=== PATIENT | female | born 1950 | race Caucasian/White ===

== ENCOUNTER 2018-04-09 17:43 | Emergency (ER) | payer MEDICARE, OTHER, SELFPAY ==
[2018-04-09 17:45] VITALS: BP 161/83; PULSE 72; RESP 18; TEMP 36.3; O2SAT 97; BMI 27.1
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
[2018-04-09 19:51] VITALS: BP 154/60; PULSE 58; RESP 18; O2SAT 94
== END 2018-04-09 19:55 | disposition home or self-care (01) ==
PROVIDERS: Emergency Provider Emergency Medicine; Family Provider Internal Medicine; PCP Internal Medicine
DX: M54.2 Cervicalgia (principal); H57.10 Ocular pain, unspecified eye; M25.562 Pain in left knee; M25.561 Pain in right knee; M79.671 Pain in right foot; K21.9 Gastro-esophageal reflux disease without esophagitis; Z79.899 Other long term (current) drug therapy; V43.52XA Car driver injured in collision with other type car in traffic accident, initial encounter; Y93.I9 Activity, other involving external motion; Y92.410 Unspecified street and highway as the place of occurrence of the external cause; Y99.8 Other external cause status
CPT/HCPCS: 70450; 72125; 73564; 73630; 99282

== ENCOUNTER 2019-04-28 10:37 | Emergency (ER) | payer MEDICARE, SELFPAY ==
[2019-04-28 10:38] VITALS: BP 163/95; PULSE 111; RESP 17; TEMP 36.4; O2SAT 95; BMI 27.4
--- NOTE | 2019-04-28 10:45 | RAD_ITS ---
STUDY: X-RAY CHEST REASON FOR EXAM: Female, 68 years old. Cough. TECHNIQUE: PA and lateral views of the chest. COMPARISON: None. FINDINGS: The lungs are clear and expanded. Scattered calcified granulomas. There is no demonstrated pleural abnormality. Normal size heart. Normal mediastinum and baldev. Normal visualized pulmonary arteries. There is atherosclerotic calcification of the aortic arch with tortuosity. There is demineralization of the osseous structures. Normal visualized ribs, clavicles, and shoulders. Moderate sized hiatal hernia. Evidence of prior cholecystectomy. RAD/Chest PA and Lateral IMPRESSION: No acute abnormality is seen. Electronically Signed: Milan Orozco, at 11:02 EDT , Service support ,
[2019-04-28 11:38] VITALS: O2SAT 95
[2019-04-28 11:40] VITALS: BP 177/90; PULSE 88; RESP 20; TEMP 36.9; O2SAT 94
--- NOTE | 2019-04-28 12:01 | ED.VIS.DYS ---
History of Present Illness Chief Complaint: Cough Informant: Patient Onset: Weeks - 3 Current Severity: Moderate Maximum Severity: Moderate Worsened by: Coughing, Exertion Relieved by: Albuterol Associated Symptoms: Cough, Green sputum, Yellow sputum. Negative for: Bloody Sputum, Chills, Fever, Sore throat Chest Pain: None Narrative: Patient was seen at the [facility] urgent care 3 times so far for this illness in addition to her visit here today. Initially very close to the onset of her cough which was nonproductive at the time she was placed on Augmentin, she took several days of it, she had a yeast infection so discontinued it, that was then treated and is resolved now. The cough is persistent, it has been exacerbating her asthma the entire time, she was seen there again and basically diagnosed with a viral syndrome with no indications, and then on the third visit she was prescribed a lot of medicines including an antitussive, prednisone x5 days, and inhaled steroid. She states the prednisone did help her wheezing but she continued coughing and which became productive. - Past Medical History (1) Asthma Status: Chronic Past Medical History - Allergies and Home Meds Allergies/Adverse Reactions: Allergies No Known Allergies Allergy (Verified 04/09/18 17:44) Primary Care Physician: Elbert Calvo MD [Primary Care Provider] - 1 Week if not improving Lives: Alone Smoking Status: Never smoker Review of Systems General: Denies: Chills, Fever, Sweats Eyes: Denies: Visual changes - bilaterally, Diplopia ENT: Reports: Right ear pain. Denies: Rhinorrhea, Sore throat Cardiovascular: Denies: Chest pain, Palpitations Respiratory: Reports: Dyspnea - Wheezing, Cough. Denies: Dyspnea on exertion, Orthopnea Gastrointestinal: Denies: Abdominal pain, Nausea, Vomiting, Diarrhea, Melena, Hematochezia Genitourinary: Denies: Dysuria, Hematuria, Frequency Musculoskeletal: Denies: Back pain, Swelling, Extremity Pain Skin: Denies: Rash, Wounds Neurological: Reports: Headache - Especially with coughing. Denies: Weakness, Numbness Physical Exam Vital Signs/Narrative: Vital Signs Temp Pulse Resp BP Pulse Ox 04/28/19 11:40 98.4 F 88 20 H 177/90 H 94 04/28/19 10:38 97.6 F L 111 H 17 163/95 H 95 Inital Vital Signs reviewed: Yes General: Well nourished, Well developed, No Acute Distress Head: Normocephalic, Atraumatic Eyes: Perrl, EOMI ENT: Moist mucous membranes, No rhinorrhea Neck: Supple, Nontender Cardiovascular: Regular rate, Regular rhythm, No murmurs, Tachycardia Respiratory: No distress, Chest nontender, Wheezing - Throughout expiration, all lung tate, prolonged expirations. Negative for: Rales, Rhonchi Abdomen: Soft, Nontender, Nondistended, Normal bowel sounds Back: Nontender, Normal Inspection Extremities: Nontender, No edema. Negative for: Calf Tenderness Skin: Normal color, No rash, No Trauma Neurological: Alert, Oriented x3, Cranial nerves II-XII grossly intact, Normal Strength, Normal Sensation Psychological: Normal affect, Normal Mood Diagnostic/Tx/Re-eval Clinical Impression(s) from Imaging Studies Chest X-Ray 04/28/19 10:45 IMPRESSION: No acute abnormality is seen. Electronically Signed: Milan Ernesto, at 11:02 EDT , Service support , Treatment - Dyspnea: Albuterol, Atrovent, Antibiotics, Steroid Repeat Evaluation: Improved - still wheezy, improved, declines additional tx here - Medical Decision Making We will treat for atypicals given the duration of illness and no improvement, with a macrolide. Also will place on Medrol Dosepak after an initial dose of prednisone 40 mg today, she has a nebulizer machine with medication and an inhaler at home, she needs to follow-up with PCP and understands that but has not been able to. Stable for discharge home, good pulse ox and vital signs. ED Disposition - Plan for ED Patient: Disposition: Home or Assisted Living Diagnosis: Acute bronchitis with bronchospasm, Asthma exacerbation Instructions: ASTHMA, Acute (Adult), BRONCHITIS with Wheezing (Adult) Prescriptions: Azithromycin 250 mg PO DAILY #4 tab Prescription Printed MethylPREDNISolone DosePak [Medrol DosePak] 4 mg PO UD #1 box Prescription Printed Referrals: Elbert Calvo MD [Primary Care Provider] - 1 Week if not improving
[2019-04-28] MEDS: Ipratropium/Albuterol Sulfate 3 ML AMPUL.NEB INHALATION (12:09)
[2019-04-28 12:10] VITALS: PULSE 94; RESP 18
[2019-04-28] MEDS: predniSONE 20 MG Tablet 40 MG PO (12:17)
[2019-04-28] MEDS: Azithromycin 250 MG Tablet 500 MG PO (12:17)
[2019-04-28 13:09] VITALS: BP 147/70; PULSE 80; RESP 14; O2SAT 98
== END 2019-04-28 13:09 | disposition home or self-care (01) ==
PROVIDERS: Emergency Provider Emergency Medicine; Family Provider Internal Medicine; PCP Internal Medicine
DX: J45.901 Unspecified asthma with (acute) exacerbation (principal); Z79.51 Long term (current) use of inhaled steroids
CPT/HCPCS: 71046; 94640; 99283

== ENCOUNTER 2019-10-15 08:44 | Day surgery (SDC) | payer MEDICARE, SELFPAY ==
--- NOTE | 2019-10-14 21:11 | PCM.HP.OB ---
- Problem List (1) Abnormal biopsy result Status: Acute History Date of Admission: 10/15/19 History of this : This is a 69 year-old who had a pelvic ultrasound showing complex fluid in the endometrial cavity a round a polypoid lesion. An endometrial biopsy was performed showing atypical mucinous glandular proliferation. The significance of the biopsy finding is uncertain, but it was reported that atypical hyperplasia could not be excluded and additional sampling was suggested per the pathologist. Medical History: Medical History (Last Updated 10/14/19 @ 21:14 by Linda Nolasco DO) Cervical spinal stenosis M48.02 Hiatal hernia K44.9 History of diverticulitis Z87.19 History of pancreatitis Z87.19 Hypertension I10 Surgical History: Surgical History (Last Updated 10/14/19 @ 21:14 by Linda Nolasco DO) History of cholecystectomy Z90.49 History of esophagogastroduodenoscopy (EGD) Z98.890 History of tubal ligation Z98.51 Allergies No Known Allergies Allergy (Verified 10/08/19 13:48) Home Medications: Home Medications Omeprazole [Prilosec] 40 mg PO DAILY 03/12/17 Acetaminophen [Tylenol Extra Strength] 500 mg PO DAILY 10/08/19 Albuterol Inhaler [Ventolin Hfa (SP)] 1 puff INHALATION PRN PRN 10/08/19 Calcium Carbonate [Calcium] 1,200 mg PO DAILY 10/08/19 Cholecalciferol (Vitamin D3) [Vitamin D3] 1,250 mcg PO DAILY 10/08/19 Digestive 8/L.acidoph/Pectin [Digestive Enzymes Tablet] 1 ea PO DAILY 10/08/19 Fosinopril Sodium 10 mg PO DAILY 10/08/19 Smoking Status: Never smoker History Past Pregnancies: Past Pregnancies Delivery Date Name GA/ Weeks Outcome Route Wt Sex Labor Length Anesthesia Delivery Location Provider FOB Review of Systems Constitutional: Denies: Fever Eyes: Denies: Blurred vision HEENT: Denies: Head Aches Cardiovascular: Denies: Chest Pain Respiratory: Denies: Cough, Shortness of Breath Gastrointestinal: Denies: Abdominal Pain Genitourinary: Denies: Dysuria Neurological: Denies: Confusion Psychiatric: Denies: Anxiety, Depression Physical Exam General: Alert, No apparent distress HEENT: Atraumatic Cardiovascular: Regular rate Lungs: Clear to auscultation Abdomen: Soft, Non Tender, Non-Distended Extremities:: No edema Neurological: Neuro grossly intact Assessment/Plan All Active Problems Abnormal biopsy result (Acute) This is a 69 year-old who had complex fluid as well as a possible polypoid lesion noted on pelvic ultrasound. Endometrial biopsy showed atypical mucinous glandular proliferation, and atypical hyperplasia was not able to be excluded. The patient desires to proceed with hysteroscopy D&C given the endometrial biopsy findings. Reviewed risks, benefits, alternatives of a hysteroscopy D&C and consent was obtained.
--- NOTE | 2019-10-15 09:06 | DCINST_ITS ---
Discharge Diet: No Restrictions Discharge Activity: May Not Drive, May Shower May resume sexual activity in: 4 weeks Weight Bearing Status: Weight bearing as tolerated Lifting Restrictions: None Call your doctor if you observe: Fever of 101 or Higher, Inability to urinate, Inability to have a bowel movement, Using more than one pad per hour, Shortness of breath, Dizziness, Chest pain, Increased palpitations (irregular heartbeat), Calf discomfort, Uncontrolled pain Allergies/Adverse Reactions: Allergies No Known Allergies Allergy (Verified 10/08/19 13:48) Medications to take at Discharge Omeprazole [Prilosec] 40 mg PO DAILY 03/12/17 Acetaminophen [Tylenol Extra Strength] 500 mg PO DAILY 10/08/19 Albuterol Inhaler [Ventolin Hfa (SP)] 1 puff INHALATION PRN PRN 10/08/19 Calcium Carbonate [Calcium] 1,200 mg PO DAILY 10/08/19 Cholecalciferol (Vitamin D3) [Vitamin D3] 1,250 mcg PO DAILY 10/08/19 Digestive 8/L.acidoph/Pectin [Digestive Enzymes Tablet] 1 ea PO DAILY 10/08/19 Fosinopril Sodium 10 mg PO DAILY 10/08/19 Orders to be completed after discharge: Type & Screen Time Frame: 10/15/19, Facility: [facility], Location: Laboratory CBC-Complete Blood Cnt No Diff Time Frame: 10/15/19, Facility: [facility], Location: Laboratory Primary Care Physician: Elbert Calvo MD [Primary Care Provider] - Test Results: Test results from this visit will be discussed in further detail at your follow- up appointment, if applicable. Please Follow Up With: Linda Nolasco DO When: 1-2 weeks
--- NOTE | 2019-10-15 09:07 | PCM.OPRPT ---
Problem List (1) Abnormal biopsy result Status: Acute Report of Operation Date of Procedure: 10/15/19 Pre-Operative Diagnosis: Complex fluid within endometrial canal on pelvic US, endometrial biopsy with atypical mucinous glandular proliferation and could not rule out atypical hyplerplasia Post-Operative Diagnosis: As above Surgery/Procedure Performed:: Hysteroscopy D&C Description of Surgical Findings:: Normal appearing uterine cavity and bilateral tubal ostia were visualized. There were no polyps or fibroids noted. The endometrium was thin and atrophic appearing. There was some scarring noted at the fundus of the uterus, and a nodule noted also at the fundus of the uterus along the right side. Type of Anesthesia:: MAC Special Medications: None Specimen's removed: Endometrial curettings Drains: None Estimated Blood Loss (mL): < 10 cc Description of Procedure: Patient was taken to the operating room where MAC anesthesia was found to be adequate. She was prepped and draped in the dorsal lithotomy position using yellowfin stirrups. A weighted speculum was placed in the vagina exposing the cervix and a single-tooth tenaculum was placed on the anterior lip of the cervix. The cervix was serially dilated to accommodate the Symphion hysteroscope. The findings were noted as above. The Symphion was used to do a directed biopsy of the nodule within the uterus, and to perform a D&C. The Symphion hysteroscope was then removed. A sharp curettage was then performed for additional specimen. The endometrial curettings were sent to pathology for review. All instruments were removed from the vagina. Bleeding was hemostatic. Instrument counts were correct. The patient was taken to the recovery room in stable condition. Grafts/Implants Used: None - Complications None - Admit VTE Documentation VTE Present on Admission: No VTE Mechan Device Prophylaxis: SCD's
[2019-10-15] MEDS: Lactated Ringers 1,000 ML 75 ML IV (09:10)
[2019-10-15 09:14] LABS: Hematocrit 45.8 % (37-47); Hemoglobin 14.4 g/dL (12.0-15.0); Mean Corp Hgb Conc 31.4 g/dL (32-36); Mean Corpuscular Hgb 28.7 pg (27.0-32.0); Mean Corpuscular Volume 91.4 fL (81-99); Mean Platelet Vol. 11.1 fl (6.2-12.0); Platelet Count 213 K/mm3 (150-450); RBC Distribution Width CV 13.3 % (11.6-14.6); RBC Distribution Width SD 45.3 fl (35.1-43.9); Red Blood Count 5.01 M/mm3 (4.2-5.4); White Blood Count 6.5 K/mm3 (4.4-11.0)
[2019-10-15 09:16] VITALS: BP 154/77; PULSE 64; RESP 16; TEMP 36.1; O2SAT 99; BMI 26.9
[2019-10-15 09:55] LABS: Bedside Glucose 273 mg/dL (70-110)
--- NOTE | 2019-10-15 10:15 | EMB_PTH ---
PATIENT: LORE WHITAKER V LOC: [facility] [place] U#:[id number] AGE/SX: 69/F ROOM: RE10/15/[address]: Dr. Linda Nolasco DO : 1950 BED: DIS: 10/15/2019 SPEC #: [id number] RECD: 10/15/19 12:25 STATUS: DECLAN FLORENTINO #: [id number] ANAIS: 10/15/19 10:[address]: Linda Nolasco DEPT: SURGICAL PATHOLOGY RECD BY: Arnulfo Dubose ENTERED: 10/15/19 14:02 SP TYPE: ENDOM BX/C REBEKAH DR: Dr. Elbert Calvo MD Tissues: Endometrium, NOS Procedures: Surgery Specimen Level IV HEADER OPERATION: Hysteroscopy, dilation and curettage PRE-OP DIAGNOSIS: Abnormal endometrial biopsy and ultrasound TISSUE SUBMITTED: Endometrial curettings MICROSCOPIC DIAGNOSIS Endometrial curettings: Fragments of benign endometrial tissue with cystic atrophic changes. Fragments of myometrium. Fragments of benign ecto- and endocervical epithelium with chronic inflammation, blood and mucous. HILARIO:omar 10/16/19 COMMENT Correlation with clinical findings and appropriate follow up are necessary. MICROSCOPIC DESCRIPTION Slides are reviewed. GROSS DESCRIPTION Received in fixative is one container labeled with the patient's name and designated endometrial curettings. The specimen consists of multiple fragments of juan hemorrhagic mucoid tissue that in aggregate measure 5 x 3 x 0.3 cm. The entire specimen is submitted in two cassettes. / HILARIO:omar 10/15/19 TC:5 CPT: 27064
[2019-10-15 11:04] VITALS: BP 131/70; BP 154/77; PULSE 65; RESP 14; TEMP 36.1; O2SAT 94
[2019-10-15 11:10] VITALS: BP 125/70; BP 154/77; PULSE 62; RESP 16; O2SAT 93
[2019-10-15 11:16] VITALS: BP 133/70; BP 154/77; PULSE 61; RESP 16; O2SAT 94
[2019-10-15 11:20] VITALS: BP 129/79; BP 154/77; PULSE 58; RESP 16; TEMP 36.7; O2SAT 96
[2019-10-15 12:20] VITALS: BP 114/56; BP 154/77; PULSE 70; RESP 16; TEMP 36.6; O2SAT 100
== END 2019-10-15 12:26 | disposition home or self-care (01) ==
LOC: SDC 08:47 → AC 08:48
PROVIDERS: Family Provider Internal Medicine; PCP Internal Medicine; Referring Provider Obstetrics & Gynecology; Visit Provider Obstetrics & Gynecology
PROC: 0UDB8ZZ Extraction of Endometrium, Via Natural or Artificial Opening Endoscopic (ICD-10-PCS; CPT 58558; principal; 2019-10-15 10:05)
DX: R93.89 Abnormal findings on diagnostic imaging of other specified body structures (principal); I10 Essential (primary) hypertension; K44.9 Diaphragmatic hernia without obstruction or gangrene; E11.9 Type 2 diabetes mellitus without complications; Z98.51 Tubal ligation status; Z90.49 Acquired absence of other specified parts of digestive tract; Z87.19 Personal history of other diseases of the digestive system
CPT/HCPCS: 00952; 58558; 36415; 82962; 85027; 86850; 86900; 86901; 88305; J7120; J2405

== ENCOUNTER → 2020-03-04 12:03 | Outpatient (CLI) | payer MEDICARE, SELFPAY | PROVIDERS: PCP Internal Medicine; Referring Provider Internal Medicine; Visit Provider Internal Medicine | DX: R50.9 Fever, unspecified (principal); R05 Cough; J44.9 Chronic obstructive pulmonary disease, unspecified | CPT/HCPCS: 87635; G2023; U0003 ==

== ENCOUNTER 2021-04-27 18:43 | Observation (INO) | payer MEDICARE, SELFPAY ==
[2021-04-27] VITALS (12 sets, daily range): BP systolic 125–187; BP diastolic 65–90; PULSE 67–88; RESP 12–24; TEMP 36.8–36.9; O2SAT 96–99; BMI 22.6; BMI 22.4
--- NOTE | 2021-04-27 18:47 | CT_ITS ---
STUDY: CT HEAD STROKE PROTOCOL W/O CONTRAST INJECTION REASON FOR EXAM: Female, 70 years old. Neuro deficit, acute, stroke suspected TECHNIQUE: Transaxial CT imaging of the brain was performed without administration of intravenous contrast material. Individualized dose optimization techniques were used for this CT. COMPARISON: 04/09/2018 FINDINGS: Normal soft tissue structures. Normal calvarium. Normal size ventricles and extra-axial spaces for the patient''s age. Normal white matter tracts of the cerebral hemispheres. Normal basal ganglia and thalami. Normal brainstem. Normal cerebellum. There is no intracranial hemorrhage. There are no findings of an acute ischemic infarction. Mucosal thickening of the visualized paranasal sinuses. CT/STROKE Brain/Head without Cont IMPRESSION: Normal unenhanced CT scan of the brain. Paranasal sinus disease. N.B. : The above Results were Read Back by Janes Vicente DO to Dr Nilam MD, and understanding confirmed on 04/27/2021 19:13:52 (ET). Electronically Signed: Janes Vicente DO at 19:14 EDT Tel [phone], Service support ,
--- NOTE | 2021-04-27 18:47 | EKG12_ITS ---
Test Reason : NEURO Blood Pressure : / mmHG Vent. Rate : 074 BPM Atrial Rate : 074 BPM P-R Int : 116 ms QRS Dur : 100 ms QT Int : 382 ms P-R-T Axes : 032 060 061 degrees QTc Int : 424 ms Normal sinus rhythm Normal ECG Confirmed by CORNELIO ARVIZU, HARPREET ([id number]), technical writer and editor JUSTIN PULIDO ([id number]) on 05/01/2021 10:03:08 AM Referred By: RU Confirmed By:HARPREET GRIMES MD
--- NOTE | 2021-04-27 18:48 | CT_ITS ---
We are attempting to reach an attending provider to discuss findings. An addendum with communication details will be sent when the communication is complete. STUDY: CTA HEAD AND NECK WITH CONTRAST REASON FOR EXAM: Female, 70 years old. Neuro deficit, acute, stroke suspected RADIATION DOSAGE (If Supplied By Facility): CTDIvol = ( 15.77 ) mGy, DLP = ( 552.49 ) mGycm TECHNIQUE: CT angiography was performed with a multi-detector CT scanner. Data acquisition was obtained from the skull base through the vertex following intravenous administration of IV 100mL [id number]-370. MIP images were reconstructed from the axial data set. Post-processing of the angiographic images was performed, with multiplanar reformation and 3D reconstruction. Individualized dose optimization techniques were used for this CT. COMPARISON: No relevant priors. FINDINGS: Normal bilateral petrous carotid arteries. Normal right cavernous carotid artery with a normal supraclinoid bifurcation. Normal left cavernous carotid artery with a normal supraclinoid bifurcation. Normal right A1 segments of the anterior cerebral artery. Normal left A1 segments of the anterior cerebral artery. Normal intact anterior communicating artery (ACOM). Normal bilateral A2 segments of the anterior cerebral arteries. Normal right M1 and M2 segments of the middle cerebral arteries, with a normal M1 bifurcation. Normal left M1 and M2 segments of the middle cerebral arteries, with a normal M1 bifurcation. Normal right posterior communicating artery (PCOM). Normal left posterior communicating artery (PCOM) supplying the left posterior circulation. Normal right vertebral artery which is dominant supply to the posterior circulation. The left vertebral artery terminates as the PICA. Normal basilar artery. No visualization of the proximal segment of the left posterior cerebral artery. The visualized bilateral superior cerebellar (SCA) arteries are normal. Normal right posterior cerebral artery. The left posterior cerebral artery supplied by the left posterior communicating artery. There is no demonstrated aneurysm of the [place]. There is no demonstrated abnormality of the visualized brain. AORTIC ARCH: Mildly calcified aortic arch. Normal origins of the brachiocephalic, left common carotid, and left subclavian arteries. RIGHT CAROTID ARTERIES: Normal right common carotid artery (CCA). Mildly calcified right common carotid bulb. Normal origin of the right internal carotid (ICA) artery without a hemodynamically significant stenosis. Normal visualized cervical portion of the right internal carotid artery. Normal origin of the right external carotid artery (ECA). LEFT CAROTID ARTERIES: Normal left common carotid artery (CCA). Normal left common carotid bulb. Normal origin of the left internal carotid (ICA) artery without a hemodynamically significant stenosis. Normal visualized cervical portion of the left internal carotid artery. Normal origin of the left external carotid artery (ECA). VERTEBRAL ARTERIES: Normal bilateral vertebral arteries. CT/STROKE CTA Head AND Neck W/Con IMPRESSION: No hemodynamically significant stenosis. Normal variation as noted above. Mild calcifications at the right carotid bulb with no hemodynamically significant stenosis. Electronically Signed: Janes Vicente DO at 19:25 EDT Tel [phone], Service support ,
[2021-04-27 18:51] LABS: Bedside Glucose 433 mg/dL (70-110)
--- NOTE | 2021-04-27 18:51 | EDS_ITS ---
HPI History of Present Illness Chief Complaint: Neuro S/Sx Detail of Chief Complaint: Left face paresthesias and left arm paresthesias Informant: patient Narrative Narrative: Patient presents to the emergency department with complaint of par esthesias to the left face and left arm that started about 15 minutes prior to arrival emergency department. Patient denies visual changes. She denies difficulty with speech. Patient states that the paresthesias to the left side of her face have resolved but she still has numbness and tingling to the left hand. Patient states that initially she was having hard time moving the hand or get in it to work right. Patient has never had symptoms like this before. Patient is a diabetic and has history of COPD. She denies headache. She denies falls or head injuries. She denies recent illness. Patient has had the Covid vaccine. Prior similar symptoms: No PFSH PFSH Medical History (Updated 04/27/21 @ 19:[address] Kelly Wu DO) Asthma Cervical spinal stenosis COPD (chronic obstructive pulmonary disease) Diabetes Diabetes Hiatal hernia History of diverticulitis History of pancreatitis Hypertension Home Medications omeprazole 40 mg PO DAILY 03/12/17 [History Last Taken 10/14/19 23:00] acetaminophen 500 mg PO DAILY PRN 10/08/19 [History Last Taken Unknown] albuterol sulfate 1 puff INHALATION PRN PRN 10/08/19 [History Last Taken Unknown] fosinopril 10 mg PO DAILY 10/08/19 [History Last Taken Unknown] amlodipine 5 mg PO DAILY 04/27/21 [History Last Taken Unknown] amoxicillin-pot clavulanate [Augmentin] 1 tab PO BID 04/27/21 [History Last Taken Unknown] glipizide 10 mg PO DAILY 04/27/21 [History Last Taken Unknown] metformin 1,000 mg PO BID 04/27/21 [History Last Taken Unknown] Allergy/AdvReac Type Severity Reaction Status Date / Time No Known Allergies Allergy Verified 04/27/21 19:02 Surgical History (Updated 10/14/19 @ 21:[address] Linda Nolasco, DO) History of cholecystectomy History of esophagogastroduodenoscopy (EGD) History of tubal ligation Social History Smoking Status: Never smoker ROS ROS ED Constitutional Constitutional ED: Reports systems reviewed and no addt'l complaints, except as documented; Denies body ache(s), change in weight or chills Eyes Eyes: Denies acute decrease in peripheral vision, change in vision, double vision or loss of vision ENT ENT ED: Reports none; Denies ear pain, lip swelling, loss taste/smell, neck pain, otalgia or sore throat Cardiovascular Cardiovascular: Reports none; Denies abdominal pain, chest pain with activity, leg edema, lightheadedness, palpitations, rapid heart rate or syncope Respiratory/Chest Respiratory/Chest: Reports none; Denies change in mental status, dry cough, dyspnea, hemoptysis, shortness of breath at rest or shortness of breath with exertion Gastrointestinal Gastrointestinal: Reports none; Denies abdominal pain, change in stool character, diarrhea, hematemesis, hematochezia, melena, rectal bleeding or vomiting Genitourinary Genitourinary ED: Reports none; Denies abdominal discomfort, anuria, dysuria, genital pain or polyuria Musculoskeletal Musculoskeletal: Reports none; Denies arthralgias, back pain, difficulty walking, extremity pain, muscle weakness or myalgias Integumentary Reports none; Denies abscess or rash Neurologic Neurologic: Reports none, paresthesias, weakness and other Details: Left hand/arm weakness and paresthesias to face and left arm ; Denies abnormal gait, confusion, focal weakness, frequent falls, headache(s), loss of vision, numbness, radicular pain or vertigo Psychiatric Psychiatric: Reports systems reviewed and no addt'l complaints, except as documented and none; Denies behavioral changes, confusion, difficulty concentrating, hallucinations, suicidal ideation, tactile hallucinations or visual hallucinations Endocrine Endocrinology: Denies none, cold intolerance, excessive sweating, fatigue or heat intolerance Hematologic/Lymphatic Hematologic/Lymphatic: Reports none; Denies anemia, easy bleeding or easy bruising Allergic/Immunologic Allergic/Immunologic ED: Denies as per HPI, none, lip swelling, mouth swelling, throat swelling, tongue swelling or hives EXAM Physical Exam Const Vital Signs: 04/27/21 18:43 04/27/21 18:46 04/27/21 18:55 Temperature 98.4 F 98.4 F Temperature Source Temporal Temporal Pulse Rate 85 85 Respiratory Rate 16 18 Blood Pressure 187/90 H 187/90 H Blood Pressure Mean 122 122 Pulse Ox 97 96 Oxygen Delivery Method Room Air Room Air Room Air 04/27/21 18:58 04/27/21 19:17 04/27/21 19:30 Temperature Temperature Source Pulse Rate 86 81 88 Respiratory Rate 12 16 18 Blood Pressure 187/90 H 135/72 H 135/72 H Blood Pressure Mean 122 93 93 Pulse Ox 99 99 98 Oxygen Delivery Method Room Air Room Air Room Air Positive well nourished and well developed General Appearance ED: well developed and NAD HEENT Reports TM's clear and moist mucous membranes normocephalic and atraumatic; Negative for trauma or tenderness Tympanic Membrane ED: Yes TM's clear Eyes PERRL and EOMs intact bilaterally General Eye ED: Negative for pale conjunctiva or scleral icterus Neck no lymphadenopathy, supple and no JVD General: Negative for tenderness Chest Wall inspection of chest normal and palpation of chest normal Chest: Negative for tenderness Resp normal respiratory effort and clear to auscultation bilaterally Effort and Inspection: Negative for respiratory distress or pain with movement Auscultation: Negative for rhonchi, wheezes or diminished lung sounds Cardio regular rate, regular rhythm, S1 normal heart sound, S2 normal heart sound and no murmurs Peripheral Pulses: pulses 2+ throughout GI normal to inspection, nondistended, normoactive bowel sounds, soft to palpation, non-tender, non-distended and no masses Back/Spine no CVA tenderness and no thoracic nor lumbar tenderness Extremity normal to inspection General Extremety ED: Negative for edema General Extremity: Negative for edema Neuro oriented x3, CN's II-XII intact bilaterally and gait normal Neuro Narrative: Patient has decrease in station to the left hand. NIH stroke scale was a 1 for the paresthesias. No focal weakness noted. Sensorium / Orientation: awake, alert, oriented to person, oriented to place and oriented to time Motor Exam: strength 5/5 throughout and strength abnormal Psych mental status grossly normal Skin no rashes or lesions noted and no wounds STROKE Vital Signs/Narrative: Vital Signs Temp Pulse Resp BP Pulse Ox 04/27/21 19:30 88 18 135/72 H 98 04/27/21 19:17 81 16 135/72 H 99 04/27/21 18:58 86 12 187/90 H 99 04/27/21 18:46 98.4 F 85 18 187/90 H 96 04/27/21 18:43 98.4 F 85 16 187/90 H 97 MDM MDM MDM Narrative Medical decision making narrative: Patient with resolving symptoms and upon evaluation by teleneurology her NIH was down to 0. Patient is not a TPA candidate. CTAs of the head and neck were unremarkable and the CT scan of the brain just showed some sinusitis otherwise nothing acute. Case will be discussed with hospitalist to evaluate for admission for TIA. Patient also noted to be hyperglycemic. Lab Data Attestation: I reviewed the patient's lab results. Labs: Laboratory Results - last 24 hr 04/27/21 04/27/21 04/27/21 18:45 18:50 18:50 WBC 9.1 RBC 5.24 Hgb 13.8 Hct 44.6 MCV 85.1 MCH 26.3 L MCHC 30.9 L RDW Std Deviation 43.6 RDW Coeff of Williams 14.0 Plt Count 293 MPV 10.4 Immature Gran % (Auto) 0.400 Neut % (Auto) 48.4 Lymph % (Auto) 40.6 [place] % (Auto) 7.8 Eos % (Auto) 2.1 Baso % (Auto) 0.7 Absolute Neuts (auto) 4.4 Absolute Lymphs (auto) 3.70 Nucleated RBC % 0 PT INR APTT Sodium 131 L Potassium 3.7 Chloride 97 L Carbon Dioxide 25.0 Anion Gap 9 BUN 27 H Creatinine 1.06 H Estim Creat Clear Calc 45.07 Est GFR (MDRD) Af Amer 66 Est GFR (MDRD) Non-Af 55 L BUN/Creatinine Ratio 25.5 H Glucose 440 H Calcium 9.1 Troponin I High Sens 4.4 POC Glucose 433 H 04/27/21 19:00 WBC RBC Hgb Hct MCV MCH MCHC RDW Std Deviation RDW Coeff of [place] Plt Count MPV Immature Gran % (Auto) Neut % (Auto) Lymph % (Auto) [place] % (Auto) Eos % (Auto) Baso % (Auto) Absolute Neuts (auto) Absolute Lymphs (auto) Nucleated RBC % PT 14.4 INR 1.2 APTT 26.2 Sodium Potassium Chloride Carbon Dioxide Anion Gap BUN Creatinine Estim Creat Clear Calc Est GFR (MDRD) Af Amer Est GFR (MDRD) Non-Af BUN/Creatinine Ratio Glucose Calcium Troponin I High Sens POC Glucose Radiography Diagnostic Testing: Radiology Impression Brain CT 04/27/21 18:47 IMPRESSION: Normal unenhanced CT scan of the brain. Paranasal sinus disease. N.B. : The above Results were Read Back by Janes Vicente DO to Dr Nilam MD, and understanding confirmed on 04/27/2021 19:13:52 (ET). Electronically Signed: Janes Vicente DO at 19:14 EDT Tel [phone], Service support , ADDENDUM: 04/27/21 1921 IMPRESSION: Normal unenhanced CT scan of the brain. Paranasal sinus disease. N.B. : The above Results were Read Back by Janes Vicente DO to Dr Nilam MD, and understanding confirmed on 04/27/2021 19:13:52 (ET). Electronically Signed: Janes Vicente DO at 19:14 EDT Tel [phone], Service support , Head/Neck CTA 04/27/21 18:48 IMPRESSION: No hemodynamically significant stenosis. Normal variation as noted above. Mild calcifications at the right carotid bulb with no hemodynamically significant stenosis. Electronically Signed: Janes Vicente DO at 19:25 EDT Tel [phone], Service support , ADDENDUM: 04/27/21 1935 IMPRESSION: No hemodynamically significant stenosis. Normal variation as noted above. Mild calcifications at the right carotid bulb with no hemodynamically significant stenosis. N.B. : The above Results were Read Back by Janes Vicente DO to Dr Nilam MD, and understanding confirmed on 04/27/2021 19:28:08 (ET). Electronically Signed: Janes Vicente DO at 19:25 EDT Tel [phone], Service support , EKG Initial EKG: Attestation: I personally reviewed and interpreted this EKG as follows: Comments: Sinus rhythm with a ventricular rate of 74 bpm with no acute ST segment changes. Stroke Documentation Questions Stroke Team Activated: Yes Reviewed Inclusion/Exclusion criteria: Yes Was Patient considered for Endovascular Intervention?: Yes IV Alteplase (t-PA) Administered: No No contraindications for IV Alteplase (t-PA) administration.: No Alteplase (t-PA) risks, benefits, alternative discussed: Yes Discharge Plan Triage Chief Complaint: Neuro S/Sx ED Provider: Kelly Wu Dx/Rx/DC Orders Clinical Impression: Brain TIA, Acute hyperglycemia Prescriptions: No Action omeprazole 20 MG capsule 40 mg PO DAILY RF: 0 fosinopril 10 MG tablet 10 mg PO DAILY RF: 0 acetaminophen 500 MG tablet 500 mg PO DAILY PRN (Reason: Pain) RF: 0 albuterol sulfate 1 INHALER inhaler 1 puff inhalation PRN PRN (Reason: Sob &/Or Wheezing) RF: 0 glipizide 10 mg Tablet 10 mg PO DAILY RF: 0 amlodipine 5 mg Tablet 5 mg PO DAILY RF: 0 amoxicillin-pot clavulanate [Augmentin] 875-125 mg Tablet 1 tab PO BID RF: 0 metformin 1,000 mg Tablet Extended Release 24hr 1,000 mg PO BID RF: 0 Primary Care Provider: Elbert Calvo Referrals: Elbert Calvo MD [Primary Care Provider] - Disposition Disposition: Acute Care [facility]
[2021-04-27 18:59] LABS: Absolute Neutrophil Count 4.4 X10^3/uL (2.0-7.7); Basophil# 0.06 X10^3/uL; Basophil% 0.7 % (0-1); Eosinophil# 0.19 X10^3/uL; Eosinophils% 2.1 % (0-5); Hematocrit 44.6 % (37-47); Hemoglobin 13.8 g/dL (12.0-15.0); Lymphocyte % 40.6 % (19-41); Mean Corp Hgb Conc 30.9 g/dL (32-36); Mean Corpuscular Hgb 26.3 pg (27.0-32.0); Mean Corpuscular Volume 85.1 fL (81-99); Mean Platelet Vol. 10.4 fl (6.2-12.0); Monocyte# 0.71 X10^3/uL; Monocyte% 7.8 % (0-10); NRBC Flagged by Analyzer 0 % (0-5); Neutrophil # 4.41 X10^3/uL (2.7-7.7); Neutrophil % 48.4 % (47-70); Platelet Count 293 K/mm3 (150-450); RBC Distribution Width SD 43.6 fl (35.1-43.9); Red Blood Count 5.24 M/mm3 (4.2-5.4); White Blood Count 9.1 K/mm3 (4.4-11.0)
[2021-04-27] MEDS: 0.9% Normal Saline 1,000 ML 100 ML IV (18:59)
--- NOTE | 2021-04-27 19:13 | RAD_ITS ---
STUDY: X-RAY CHEST REASON FOR EXAM: Female, 70 years old. Neuro deficit, acute, stroke suspected TECHNIQUE: Frontal view COMPARISON: 04/28/2019 FINDINGS: The lungs are expanded. There is a left lower lung field focal opacity. Correlate with CT if needed. Normal size heart. Normal mediastinum and baldev. Normal visualized pulmonary arteries. Normal visualized aortic arch and descending thoracic aorta. Normal visualized thoracic spine. Normal visualized ribs, clavicles, and shoulders. Hiatal hernia. RAD/Chest 1 View IMPRESSION: Left lower lung field focal opacity. Correlation with CT is suggested if needed. Hiatal hernia. Electronically Signed: Janes Vicente DO at 20:08 EDT Tel [phone], Service support ,
[2021-04-27 19:17] LABS: Anion Gap 9 (5-15); BUN 27 mg/dL (7-18); BUN/Creat Ratio 25.5 RATIO (10-20); Calcium,Total 9.1 mg/dL (8.5-10.1); Chloride 97 mmol/L (98-107); Creatinine, Serum 1.06 mg/dL (0.55-1.02); EST Glomerular Filtration Rate 55 mL/min (>60); Est Glom Filt Rate - Afr Amer 66 mL/min (>60); Estimated Creatinine Clearance 45.07 ml/min; Glucose 440 mg/dL (74-106); Potassium 3.7 mmol/L (3.5-5.1); Sodium Level 131 mmol/L (136-145); Troponin-I HS 4.4 pg/mL (3.0-53.7)
[2021-04-27 19:21] LABS: International Normalized Ratio 1.2; Partial Thromboplast Time 26.2 Seconds (24.1-36.2); Prothrombin Time (Protime)PT. 14.4 SECONDS (11.7-14.9)
[2021-04-27] MEDS: Aspirin 325 MG Tablet PO (19:27)
--- NOTE | 2021-04-27 19:32 | ED.RN ---
NIH 0 but as patient is eating applesauce with her left hand she does not feel like it is working right. denies n/t at this time.
--- NOTE | 2021-04-27 20:13 | HP.PCM.HOS_ITS ---
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 Patient was in her usual state of health until this evening at 6:30 PM, was sitting down reading a book, she started having left-sided tingling and numbness as well as weakness in the left upper extremity. This seemed to spread to involve the left side of his face and around her mouth. She called her grandson who brought her to the emergency room. At the time of being seen, patient still has some tingling and numbness as well as weakness in her hands. Patient has history of hypertension, type II DM. She is not on aspirin. She denied any sick contacts. No fever or chills. She is vaccinated Initial brain CT was unremarkable; showed paranasal sinus disease. CTA of the head and neck was unremarkable Chest x-ray showed left lower lung field opacity, probably not new [facility] Medical History Asthma Cervical spinal stenosis COPD (chronic obstructive pulmonary disease) Diabetes Diabetes Hiatal hernia History of diverticulitis History of pancreatitis Hypertension Home Medications albuterol sulfate 1 puff INHALATION PRN PRN 10/08/19 [History Last Taken Unknown] fosinopril 10 mg PO DAILY 10/08/19 [History Last Taken 04/27/21] amlodipine 5 mg PO DAILY 04/27/21 [History Last Taken 04/27/21] amoxicillin-pot clavulanate [Augmentin] 1 tab PO BID 04/27/21 [History Last Taken 04/27/21] glipizide 10 mg PO DAILY 04/27/21 [History Last Taken 04/27/21] metformin 1,000 mg PO BID 04/27/21 [History Last Taken 04/27/21] omeprazole 40 mg PO DAILY 04/27/21 [History Last Taken 04/27/21] Allergy/AdvReac Type Severity Reaction Status Date / Time No Known Allergies Allergy Verified 04/27/21 21:37 Family History (Updated 04/27/21 @ 21:[address] Alma Guzman MD) Father CVA (cerebral vascular accident) Brother CVA (cerebral vascular accident) Other Asthma Surgical History History of cholecystectomy History of esophagogastroduodenoscopy (EGD) History of tubal ligation Social History (Updated 04/27/21 @ 21:[address] Alma Guzman MD) Smoking Status: Never smoker alcohol intake: current details: infrequent substance use type: does not use ROS ROS Narrative Constitutional:Denies: Anorexia, Chills, Fever, Night Sweats, Weight Change Eyes: Denies: Blurred vision, Cataracts, Conjunctivae Inflammation, Pain, Redness, Vision Change HEENT: Denies: Difficulty Hearing, Difficulty Swallowing, Head Aches, Hearing Changes, Sinus Congestion, Sinus Drainage Cardiovascular: Denies: Chest Pain, Orthopnea, Palpitations Respiratory: Denies: Cough, Shortness of breath at rest, Sputum production Gastrointestinal: Denies: Abdominal Pain, Nausea, Vomiting Genitourinary: Denies: Dysuria Musculoskeletal: Denies: Joint Pain, Joint stiffness, Joint swelling, Joint Tenderness Skin: Denies: Rash, Wounds Neurological: See HPI Vital Signs Vital Signs Vital Signs: 04/27/21 18:43 04/27/21 18:46 04/27/21 18:55 Temperature 98.4 F 98.4 F Temperature Source Temporal Temporal Pulse Rate 85 85 Respiratory Rate 16 18 Blood Pressure 187/90 H 187/90 H Blood Pressure Mean 122 122 Pulse Ox 97 96 Oxygen Delivery Method Room Air Room Air Room Air 04/27/21 18:58 04/27/21 19:17 04/27/21 19:30 Temperature Temperature Source Pulse Rate 86 81 88 Respiratory Rate 12 16 18 Blood Pressure 187/90 H 135/72 H 135/72 H Blood Pressure Mean 122 93 93 Pulse Ox 99 99 98 Oxygen Delivery Method Room Air Room Air Room Air 04/27/21 20:00 04/27/21 20:01 Temperature 98.4 F Temperature Source Temporal Pulse Rate 81 88 Respiratory Rate 24 H 18 Blood Pressure 152/69 H 135/72 H Blood Pressure Mean 96 93 Pulse Ox 99 98 Oxygen Delivery Method Room Air Room Air Weight Weight: 61.7 kg Body Mass Index (BMI) 22.6 Physical Exam Narrative Physical exam: General: Alert, Oriented x3, Cooperative, No apparent distress, Well developed HEENT: Atraumatic Oral: Moist Mucosa Neck: Supple Lungs: Clear to auscultation Cardiovascular: HS I+II, regular, no murmurs Abdomen: Bowel Sounds Present, Soft, Non Tender Extremities: No edema Skin: No rashes, No breakdown Neurological: Grossly intact Psych/Mental Status: Appropriate Results Lab / Micro Data Result Diagrams: 04/27/21 18:50 04/27/21 18:50 Labs: Laboratory Results - last 24 hr 04/27/21 18:45: POC Glucose 433 H 04/27/21 18:50: WBC 9.1, RBC 5.24, Hgb 13.8, Hct 44.6, MCV 85.1, MCH 26.3 L, MCH C 30.9 L, RDW Std Deviation 43.6, RDW Coeff of Williams 14.0, Plt Count 293, MPV 10.4, Immature Gran % (Auto) 0.400, Neut % (Auto) 48.4, Lymph % (Auto) 40.6, [place] % (Auto) 7.8, Eos % (Auto) 2.1, Baso % (Auto) 0.7, Absolute Neuts (auto) 4.4, Absolute Lymphs (auto) 3.70, Nucleated RBC % 0 04/27/21 18:50: Sodium 131 L, Potassium 3.7, Chloride 97 L, Carbon Dioxide 25.0, Anion Gap 9, BUN 27 H, Creatinine 1.06 H, Estim Creat Clear Calc 45.07, Est GFR (MDRD) Af Amer 66, Est GFR (MDRD) Non-Af 55 L, BUN/Creatinine Ratio 25.5 H, Glucose 440 H, Calcium 9.1, Troponin I High Sens 4.4 04/27/21 19:00: PT 14.4, INR 1.2, APTT 26.[address] 04/27/21 18:47 IMPRESSION: Normal unenhanced CT scan of the brain. Paranasal sinus disease. N.B. : The above Results were Read Back by Janes Vicente DO to Dr Nilam MD, and understanding confirmed on 04/27/2021 19:13:52 (ET). Electronically Signed: Janes Vicente DO at 19:14 EDT Tel [phone], Service support , ADDENDUM: 04/27/21 1921 IMPRESSION: Normal unenhanced CT scan of the brain. Paranasal sinus disease. N.B. : The above Results were Read Back by Janes Vicente DO to Dr Nilam MD, and understanding confirmed on 04/27/2021 19:13:52 (ET). Electronically Signed: Janes Vicente DO at 19:14 EDT Tel [phone], Service support , Head/Neck CTA 04/27/21 18:48 IMPRESSION: No hemodynamically significant stenosis. Normal variation as noted above. Mild calcifications at the right carotid bulb with no hemodynamically significant stenosis. Electronically Signed: Janes Vicente DO at 19:25 EDT Tel [phone], Service support , ADDENDUM: 04/27/21 1935 IMPRESSION: No hemodynamically significant stenosis. Normal variation as noted above. Mild calcifications at the right carotid bulb with no hemodynamically significant stenosis. N.B. : The above Results were Read Back by Janes Vicente DO to Dr Nilam MD, and understanding confirmed on 04/27/2021 19:28:08 (ET). Electronically Signed: Janes Vicente DO at 19:25 EDT Tel [phone], Service support , Chest X-Ray 04/27/21 19:13 IMPRESSION: Left lower lung field focal opacity. Correlation with CT is suggested if needed. Hiatal hernia. Electronically Signed: Janes Vicente DO at 20:08 EDT Tel [phone], Service support , Assessment & Plan Assessment/Plan (1) TIA (transient ischemic attack): (2) Abnormal chest xray: (3) Acute sinusitis: QUALIFIERS: Sinusitis location: other Recurrence: not specified as recurrent Qualified Code(s): J01.80 - Other acute sinusitis (4) COPD exacerbation: PLAN: 1. Acute onset of left-sided tingling/numbness/weakness concerning for possible acute TIA/CVA Onset of symptoms was asked 1830 hrs. Patient's initial brain CT, CTA of the head and neck has been unremarkable. Patient with history of uncontrolled type II DM, hypertension Admitting NIHSS score was 0 , Admit to PCU, monitor on telemetry, MRI of the brain, 2D echo, lipid profile in am, HbA1c PT/OT/ST to evaluate and treat 2. Recent sinusitis, on Augmentin, patient has 3 more days, will continue 3. Type II DM, uncontrolled, patient on glipizide and Metformin We will hold Metformin for now, continue on glipizide Add insulin sliding scale, check HbA1c 4. Hypertension, controlled, continue amlodipine, fosinopril I discussed and explained in details the various types of CODE STATUS-full code, DNR CCA, DNR CC. Patient chose full code. She wants everything done to keep her alive. Time spent discussing CODE STATUS 17 minutes Charges/Coding Visit Charges OBSV E&M: 22338 Initial observation care L3 Procedures Hospitalists Procedures: 92863 Advncd Care Plan 30 Min
--- NOTE | 2021-04-27 21:08 | MRI_ITS ---
We are attempting to reach an attending provider to discuss findings. An addendum with communication details will be sent when the communication is complete. STUDY: MRI BRAIN WITHOUT CONTRAST REASON FOR EXAM: Female, 70 years old. neuro deficit, acute stroke suspected TECHNIQUE: Standardized multiplanar fat and water weighted pulse sequences were obtained. COMPARISON: CTA 521 FINDINGS: Normal size of the ventricles and extra-axial spaces for the patient''s age. Normal white matter tracts of the supratentorial brain. There is some small hyperintensities within the cortex of the right parietal lobe and temporal lobe which demonstrate restricted diffusion consistent with acute embolic infarcts. Normal T2* images of the brain without demonstrated susceptibility artifact. There is no demonstrated hemosiderin stain. Normal bilateral basal ganglia. Normal thalami. There is no extra-axial fluid accumulation. Normal flow voids within the major intracranial circulation suggesting patency by spin echo criteria. Normal sella turcica, pituitary gland, infundibular stalk, optic chiasm and hypothalamus. Normal tectal plate and pineal gland. Normal midbrain, jenny and medulla. Normal cerebellum. Normal basal cisterns. Normal bilateral temporal bones. Normal bilateral internal auditory canals. No demonstrated orbital abnormality, within the constraints of a routine brain study. Mucosal thickening in the ethmoid air cells and maxillary sinuses consistent with chronic sinusitis. Normal calvarium and skull base. Normal visualized soft tissue structures. Normal visualized upper cervical spine. 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
--- NOTE | 2021-04-27 21:08 | ECHOD_ITS ---
Reason For Study: TIA/CVA Procedure This was a 2D Doppler, Color Flow transthoracic echocardiogram. Exam performed portable in patient room. Left Ventricle Normal left ventricle. The estimated ejection fraction is EF 55-60 %. Right Ventricle Normal RV size. Normal systolic function. Atria Normal left atrium. Normal right atrium. Intact atrial septum. Mitral Valve There is mild mitral annular calcification. Mild (1+) mitral valve insufficiency. Tricuspid Valve Normal tricuspid valve. Mild tricuspid valve insufficiency. Aortic Valve Aortic sclerosis, no stenosis. Mild (1+) aortic valve insufficiency. Pulmonic Valve The pulmonic valve is not well visualized. Great Vessels Normal aortic root. Pericardium/Pleural No pericardial effusion. Medication Performed a rapid injection of agitated mix of 9 cc saline and 1cc air to assess for atrial septal defect. MMode/2D Measurements & Calculations LVIDd: 3.7 cm IVSd: 0.86 cm Ao root diam: 2.9 cm LVIDs: 2.3 cm LVPWd: 0.83 cm RVDd: 2.9 cm FS: 36.8 % LAV(MOD-bp): 36.5 ml LVAd ap4: 21.8 cm2 LVAd ap2: 20.5 cm2 LAV(MOD-bp) Indexed: 21.9 ml/m2 LVLd ap4: 6.6 cm LVLd ap2: 8.0 cm LAV(MOD-sp2): 33.7 ml EDV(MOD-sp4): 58.0 ml EDV(MOD-sp2): 44.8 ml LAV(MOD-sp4): 33.7 ml EDV(sp4-el): 61.3 ml EDV(sp2-el): 45.0 ml LVAs ap4: 10.7 cm2 LVAs ap2: 8.8 cm2 LVLs ap4: 4.9 cm LVLs ap2: 6.1 cm ESV(MOD-sp4): 19.0 ml ESV(MOD-sp2): 11.0 ml ESV(sp4-el): 19.6 ml ESV(sp2-el): 10.8 ml EF(MOD-sp4): 67.2 % EF(MOD-sp2): 75.5 % EF(sp4-el): 68.0 % SV(MOD-sp4): 39.0 ml SV(MOD-sp2): 33.8 ml SV(sp4-el): 41.6 ml LA A4 area: 13.3 cm2 LA dimension(2D): 3.3 cm RA A4 area: 10.0 cm2 Time Measurements MV dec time: 0.14 sec Doppler Measurements & Calculations MV E max yunier: 130.5 cm/sec Lat Peak E' Yunier: 8.7 cm/sec Med Peak E' Yunier: 7.3 cm/sec MV A max yunier: 161.0 cm/sec E/E' lat: 15.0 E/E' med: 17.9 MV E/A: 0.81 Ao V2 max: 185.7 cm/sec AI max yunier: 326.4 cm/sec LV V1 max: 156.1 cm/sec Ao max P.8 mmHg AI max P.6 mmHg LV V1 max P.7 mmHg Ao V2 mean: 133.9 cm/sec LV V1 mean P.8 mmHg Ao mean P.8 mmHg AI dec slope: 224.9 cm/sec2 LV V1 mean: 89.1 cm/sec Ao V2 VTI: 32.9 cm AI P1/2t: 425.2 msec LV V1 VTI: 29.1 cm TR max yunier: 284.5 cm/sec TR max P.4 mmHg ECHO/Echo Complete Interpretation Summary The estimated ejection fraction is EF 55-60 %. Normal LV systolic function Ordering Physician: Alma Guzman Referring Physician: Elbert Calvo M.D. Performed By: Miriam Loja, SUJEYCS, RVT
[2021-04-27 21:48] LABS: Hemoglobin A1c 10.2 % (3.8-5.6)
[2021-04-27] MEDS: Atorvastatin Calcium 80 MG Tablet PO (22:35)
[2021-04-27] MEDS: Amox/Clavulanate 875 MG Tablet PO (22:35)
[2021-04-27] MEDS: Insulin Lispro 100 UNIT/ML INSULN.PEN SC (22:35)
[2021-04-27 22:40] LABS: Bedside Glucose 274 mg/dL (70-110)
[2021-04-27] MEDS: Ipratropium/Albuterol Sulfate 3 ML AMPUL.NEB INHALATION (23:17)
[2021-04-28] VITALS (8 sets, daily range): BP systolic 101–124; BP diastolic 50–76; PULSE 61–77; RESP 16–18; TEMP 36.5–36.9; O2SAT 95–100; BMI 22.4
[2021-04-28 05:39] LABS: Absolute Lymphocyte Count 2.79 X10^3/uL (0.83-4.51); Absolute Neutrophil Count 2.8 X10^3/uL (2.0-7.7); Basophil# 0.05 X10^3/uL; Basophil% 0.8 % (0-1); Eosinophil# 0.21 X10^3/uL; Eosinophils% 3.3 % (0-5); Hematocrit 39.9 % (37-47); Hemoglobin 12.2 g/dL (12.0-15.0); Lymphocyte # 2.79 X10^3/ul (0.83-4.51); Lymphocyte % 43.4 % (19-41); Mean Corp Hgb Conc 30.6 g/dL (32-36); Mean Corpuscular Hgb 26.3 pg (27.0-32.0); Mean Platelet Vol. 10.4 fl (6.2-12.0); Monocyte# 0.57 X10^3/uL; Monocyte% 8.9 % (0-10); NRBC Flagged by Analyzer 0 % (0-5); Neutrophil # 2.79 X10^3/uL (2.7-7.7); Neutrophil % 43.3 % (47-70); Platelet Count 244 K/mm3 (150-450); RBC Distribution Width CV 14.3 % (11.6-14.6); RBC Distribution Width SD 45.3 fl (35.1-43.9); Red Blood Count 4.64 M/mm3 (4.2-5.4); White Blood Count 6.4 K/mm3 (4.4-11.0)
[2021-04-28 06:08] LABS: ALB/GLOB Ratio 0.8 RATIO (0.9-2.4); AST(SGOT) 17 U/L (15-37); Alanine Aminotransfer ALT/SGPT 30 U/L (13-56); Alkaline Phosphatase 98 U/L (45-117); Anion Gap 6 (5-15); BUN 17 mg/dL (7-18); BUN/Creat Ratio 23.5 RATIO (10-20); Calcium,Total 8.5 mg/dL (8.5-10.1); Chloride 106 mmol/L (98-107); Cholesterol 168 mg/dL (200); Creatinine, Serum 0.72 mg/dL (0.55-1.02); EST Glomerular Filtration Rate 85 mL/min (>60); Est Glom Filt Rate - Afr Amer 103 mL/min (>60); Estimated Creatinine Clearance 47.78 ml/min; Globulin 3.7 g/dL (2.2-4.2); Glucose 173 mg/dL (74-106); High Density Lipoprotein 32 mg/dL; Potassium 3.7 mmol/L (3.5-5.1); Protein, Total 6.7 g/dL (6.4-8.2); Sodium Level 139 mmol/L (136-145); Triglycerides 138 mg/dL; Very Low Density Lipoprotein 28 mg/dL (5-40)
[2021-04-28] MEDS: Insulin Lispro 100 UNIT/ML INSULN.PEN SC ×2 (06:54→11:27)
[2021-04-28 07:00] LABS: Bedside Glucose 180 mg/dL (70-110)
[2021-04-28] MEDS: Ipratropium/Albuterol Sulfate 3 ML AMPUL.NEB INHALATION (07:01)
[2021-04-28] MEDS: glipiZIDE XL 5 MG Tablet 10 MG PO (07:33)
[2021-04-28] MEDS: Amox/Clavulanate 875 MG Tablet PO (07:33)
[2021-04-28] MEDS: Aspirin 81 MG TAB.CHEW PO (07:34)
[2021-04-28] MEDS: Pantoprazole Sodium 40 MG Tablet PO (09:29)
[2021-04-28] MEDS: Famotidine 20 MG Tablet PO (09:29)
[2021-04-28] MEDS: Heparin Injection (Vial) 5,000 UNIT/ML VIAL 5000 UNIT SC (09:29)
--- NOTE | 2021-04-28 11:00 | TELEMED_ITS ---
[facility] Tele[facility] has confirmed receipt of a request for visit. This document confirms receipt of the order initiating the consult. To find the results of the consultation, please view the patient's reports for the scanned Telemed Consult.
[2021-04-28 11:36] LABS: Bedside Glucose 346 mg/dL (70-110)
--- NOTE | 2021-04-28 12:54 | PCM.DC ---
Discharge Instructions Diet Discharge Diet: Low fat / Low cholesterol and 1800 Calorie Control Diet Activity Discharge Activity: Return to Normal Activity Dressing / Incision Call your doctor if you observe: Numbness or Tingling, Dizziness, Fainting spells and Increased palpitations (irregular heartbeat) Follow Up Care Test Results: Test results from this visit will be discussed in further detail at your follow-up appointment, if applicable. Discharge Plan Admission Admit Date/Time: 04/27/21 19:50 Attending Provider: Vitor Fuentes Primary Care Provider: Elbert Calvo Consulting Providers: Steve Michelle ; Elbert Calvo Instructions Patient Instructions: What Is Ischemic Stroke?, Stroke: Resources and Support, Risk Factors for Stroke Discharge Orders/Prescriptions Prescriptions: New atorvastatin 80 mg Tablet 80 mg PO QHS 30 Days Qty: 30 RF: 0 aspirin 81 mg Tablet,Chewable 81 mg PO BREAKFAST 30 Days Qty: 30 RF: 0 clopidogrel [Plavix] 75 mg tablet 75 mg PO DAILY Qty: 30 RF: 0 Continued fosinopril 10 MG tablet 10 mg PO DAILY RF: 0 albuterol sulfate 1 INHALER inhaler 1 puff inhalation PRN PRN (Reason: Sob &/Or Wheezing) RF: 0 amlodipine 5 mg Tablet 5 mg PO DAILY RF: 0 amoxicillin-pot clavulanate [Augmentin] 875-125 mg Tablet 1 tab PO BID RF: 0 glipizide 10 mg tablet extended release 24hr 10 mg PO DAILY RF: 0 omeprazole 40 mg capsule,delayed release(DR/EC) 40 mg PO DAILY RF: 0 No Action metformin 500 mg tablet extended release 24 hr 1,000 mg PO BID RF: 0 Referrals / Follow Up: Elbert Calvo MD [Primary Care Provider] - Within 1 Week Steve Michelle MD [NON-STAFF] - Within 2 Weeks Disposition Disposition (needs filled in before D/C Order can be placed): Home, Self Care
--- NOTE | 2021-04-28 13:03 | PCM.DC.SUM ---
Documented by User: SALLY Coates 04/28/21 13:17 Providers Date of Admission: 04/27/21 Primary Care Physician: Dr. Elbert Calvo MD Reason For Visit: TIA/CVA Diagnosis Discharge Diagnosis (1) Abnormal chest xray: Status: Acute Code(s): R93.89 - Abnormal findings on diagnostic imaging of other specified body structures (2) Acute sinusitis: Status: Acute Code(s): J01.90 - Acute sinusitis, unspecified Qualifiers: Recurrence: not specified as recurrent Sinusitis location: other Qualified Code(s): J01.80 - Other acute sinusitis (3) COPD exacerbation: Status: Chronic Code(s): J44.1 - Chronic obstructive pulmonary disease with (acute) exacerbation (4) Stroke: Status: Acute Code(s): I63.9 - Cerebral infarction, unspecified Plan: 1.CVA -Initial brain CT, CTA of the head and neck has been unremarkable.MRI positive for acute embolic infarcts of the right parietal and temporal lobes. -SOC consulted, recommended aspirin, Plavix, atorvastatin, loop recorder upon discharge -History of uncontrolled type II DM, hypertension -NIHSS 0 -PT OT ST evaluations complete patient independent with all care. -Echo pending, will obtain results prior to discharging patient 2. Recent sinusitis -Continue Augmentin 3. Type II DM -Continue Metformin and glipizide upon discharge -Hemoglobin A1c 10.2 4. Hypertension, controlled, -continue amlodipine, fosinopril Medications at Discharge Home Medications albuterol sulfate 1 puff INHALATION PRN PRN 10/08/19 fosinopril 10 mg PO DAILY 10/08/19 amlodipine 5 mg PO DAILY 04/27/21 amoxicillin-pot clavulanate [Augmentin] 1 tab PO BID 04/27/21 glipizide 10 mg PO DAILY 04/27/21 metformin 1,000 mg PO BID 04/27/21 omeprazole 40 mg PO DAILY 04/27/21 aspirin 81 mg PO BREAKFAST 30 Days #30 tab 04/28/21 atorvastatin 80 mg PO QHS 30 Days #30 tab 04/28/21 clopidogrel [Plavix] 75 mg PO DAILY #30 tab 04/28/21 Hospital Course Operations None Procedures Transthoracic echo Summary of Care Provided Minutes Spent on Discharge: 35 Physical Exam Const alert and oriented x3 General Appearance: cooperative HEENT normocephalic and head/scalp atraumatic Eyes conjunctivae normal and no scleral icterus Neck supple and no JVD General: trachea midline Resp normal respiratory effort, normal air movement and clear to auscultation bilaterally Cardio regular rate, regular rhythm, S1 normal heart sound and S2 normal heart sound GI normal to inspection, nondistended, normoactive bowel sounds, soft to palpation and non-tender Extremity normal capillary refill and no clubbing, cyanosis or edema General Extremity: no tenderness to palpation of joints or extremities Skin skin turgor normal General Skin Exam: no breakdown Lesions: no lesions Rashes: no rashes Neuro no focal motor deficits Speech: speech normal Gait (Neuro): normal gait Sensory Exam: extremities light-touch: decreased (decreased in left 4th and 5th finger) Motor Exam: strength 5/5 throughout Psych affect normal Appearance: appropriate Weight / BMI Weight Weight: 134 lb 14.766 oz Body Mass Index (BMI) 22.4 ABG / Lab / Microbiology Data Result Diagrams: 04/28/21 05:00 04/28/21 05:00 Laboratory: Laboratory Results - last 24 hr 04/27/21 18:45: POC Glucose 433 H 04/27/21 18:50: WBC 9.1, RBC 5.24, Hgb 13.8, Hct 44.6, MCV 85.1, MCH 26.3 L, MCHC 30.9 L, RDW Std Deviation 43.6, RDW Coeff of Williams 14.0, Plt Count 293, MPV 10.4, Immature Gran % (Auto) 0.400, Neut % (Auto) 48.4, Lymph % (Auto) 40.6, [place] % (Auto) 7.8, Eos % (Auto) 2.1, Baso % (Auto) 0.7, Absolute Neuts (auto) 4.4, Absolute Lymphs (auto) 3.70, Nucleated RBC % 0 04/27/21 18:50: Sodium 131 L, Potassium 3.7, Chloride 97 L, Carbon Dioxide 25.0, Anion Gap 9, BUN 27 H, Creatinine 1.06 H, Estim Creat Clear Calc 45.07, Est GFR (MDRD) Af Amer 66, Est GFR (MDRD) Non-Af 55 L, BUN/Creatinine Ratio 25.5 H, Glucose 440 H, Calcium 9.1, Troponin I High Sens 4.4 04/27/21 18:50: Hemoglobin A1c 10.2 H 04/27/21 19:00: PT 14.4, INR 1.2, APTT 26.2 04/27/21 22:34: POC Glucose 274 H 04/28/21 05:00: WBC 6.4, RBC 4.64, Hgb 12.2, Hct 39.9, MCV 86.0, MCH 26.3 L, MCHC 30.6 L, RDW Std Deviation 45.3 H, RDW Coeff of Williams 14.3, Plt Count 244, MPV 10.4, Immature Gran % (Auto) 0.300, Neut % (Auto) 43.3 L, Lymph % (Auto) 43.4 H, [place] % (Auto) 8.9, Eos % (Auto) 3.3, Baso % (Auto) 0.8, Absolute Neuts (auto) 2.8, Absolute Lymphs (auto) 2.79, Nucleated RBC % 0 04/28/21 05:00: Sodium 139, Potassium 3.7, Chloride 106, Carbon Dioxide 27.0, Anion Gap 6, BUN 17, Creatinine 0.72, Estim Creat Clear Calc 47.78, Est GFR (MDRD) Af Amer 103, Est GFR (MDRD) Non-Af 85, BUN/Creatinine Ratio 23.5 H, Glucose 173 H, Calcium 8.5, Total Bilirubin 0.40, AST 17, ALT 30, Alkaline Phosphatase 98, Total Protein 6.7, Albumin 3.0 L, Globulin 3.7, Albumin/Globulin Ratio 0.8 L, Triglycerides 138, Cholesterol 168, LDL Cholesterol 108, VLDL Cholesterol 28, HDL Cholesterol 32 L 04/28/21 06:53: POC Glucose 180 H 04/28/21 11:24: POC Glucose 346 H Radiography Diagnostic Testing: Radiology Impression Brain CT 04/27/21 18:47 IMPRESSION: Normal unenhanced CT scan of the brain. Paranasal sinus disease. N.B. : The above Results were Read Back by Janes Vicente DO to Dr Nilam MD, and understanding confirmed on 04/27/2021 19:13:52 (ET). Electronically Signed: Janes Vicente DO at 19:14 EDT Tel [phone], Service support , ADDENDUM: 04/27/21 1921 IMPRESSION: Normal unenhanced CT scan of the brain. Paranasal sinus disease. N.B. : The above Results were Read Back by Janes Vicente DO to Dr Nilam MD, and understanding confirmed on 04/27/2021 19:13:52 (ET). Electronically Signed: Janes Vicente DO at 19:14 EDT Tel [phone], Service support , Head/Neck CTA 04/27/21 18:48 IMPRESSION: No hemodynamically significant stenosis. Normal variation as noted above. Mild calcifications at the right carotid bulb with no hemodynamically significant stenosis. Electronically Signed: Janes Vicente DO at 19:25 EDT Tel [phone], Service support , ADDENDUM: 04/27/21 1935 IMPRESSION: No hemodynamically significant stenosis. Normal variation as noted above. Mild calcifications at the right carotid bulb with no hemodynamically significant stenosis. N.B. : The above Results were Read Back by Janes Vicente DO to Dr Nilam MD, and understanding confirmed on 04/27/2021 19:28:08 (ET). Electronically Signed: Janes Vicente DO at 19:25 EDT Tel [phone], Service support , Chest X-Ray 04/27/21 19:13 IMPRESSION: Left lower lung field focal opacity. Correlation with CT is suggested if needed. Hiatal hernia. 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 : The above Results were Read Back by Daniel Lovell MD to Megan Alvarez NP, and understanding confirmed on 04/28/2021 11:01:28 (ET). Electronically Signed: Daniel Lovell MD at 10:52 EDT Tel , Service support , D/C Instructions Discharge Diet: Low fat / Low cholesterol and 1800 Calorie Control Diet Call your doctor if you observe: Numbness or Tingling, Dizziness, Fainting spells and Increased palpitations (irregular heartbeat) Meaningful Use Info Meaningful Use Diagnoses (Choose all that apply): Ischemic CVA CVA Therapy Assessed for PT,OT and/or ST?: Yes Ischemic Stroke Antithrombotic order at d/c?: Yes Dx of Atrial fib/flutter?: No Anticoagulant at discharge?: Yes Statins at discharge?: Yes Primary Dx Acute Ischemic CVA?: Yes IV tPA ordered during stay?: No Reason IV t-PA not ordered: Treatment not Indicated Discharge Plan Admission Admit Date/Time: 04/27/21 19:50 Attending Provider: Vitor Fuentes Primary Care Provider: Elbert Calvo Consulting Providers: Steve Michelle ; Elbert Calvo Instructions Patient Instructions: What Is Ischemic Stroke?, Stroke: Resources and Support, Risk Factors for Stroke Additional Instructions / Restrictions: ST recommending MBS for history of swallowing issues Discharge Orders/Prescriptions Prescriptions: New atorvastatin 80 mg Tablet 80 mg PO QHS 30 Days Qty: 30 RF: 0 aspirin 81 mg Tablet,Chewable 81 mg PO BREAKFAST 30 Days Qty: 30 RF: 0 clopidogrel [Plavix] 75 mg tablet 75 mg PO DAILY Qty: 30 RF: 0 Continued fosinopril 10 MG tablet 10 mg PO DAILY RF: 0 albuterol sulfate 1 INHALER inhaler 1 puff inhalation PRN PRN (Reason: Sob &/Or Wheezing) RF: 0 amlodipine 5 mg Tablet 5 mg PO DAILY RF: 0 amoxicillin-pot clavulanate [Augmentin] 875-125 mg Tablet 1 tab PO BID RF: 0 glipizide 10 mg tablet extended release 24hr 10 mg PO DAILY RF: 0 omeprazole 40 mg capsule,delayed release(DR/EC) 40 mg PO DAILY RF: 0 No Action metformin 500 mg tablet extended release 24 hr 1,000 mg PO BID RF: 0 Referrals / Follow Up: Elbert Calvo MD [Primary Care Provider] - Within 1 Week Steve Michelle MD [NON-STAFF] - Within 2 Weeks Disposition Disposition (needs filled in before D/C Order can be placed): Home, Self Care Documented by User: Dr. Vitor Fuentes MD 04/28/21 14:03 Providers Date of Admission: 04/27/21 Reason For Visit: TIA/CVA Medications at Discharge Home Medications albuterol sulfate 1 puff INHALATION PRN PRN 10/08/19 fosinopril 10 mg PO DAILY 10/08/19 amlodipine 5 mg PO DAILY 04/27/21 amoxicillin-pot clavulanate [Augmentin] 1 tab PO BID 04/27/21 glipizide 10 mg PO DAILY 04/27/21 metformin 1,000 mg PO BID 04/27/21 omeprazole 40 mg PO DAILY 04/27/21 aspirin 81 mg PO BREAKFAST 30 Days #30 tab 04/28/21 atorvastatin 80 mg PO QHS 30 Days #30 tab 04/28/21 clopidogrel [Plavix] 75 mg PO DAILY #30 tab 04/28/21 ABG / Lab / Microbiology Data Result Diagrams: 04/28/21 05:00 04/28/21 05:00 Discharge Plan Admission Admit Date/Time: 04/27/21 19:50 Attending Provider: Vitor Fuentes Primary Care Provider: Elbert Calvo Consulting Providers: Steve Michelle ; Elbert Calvo Instructions Patient Instructions: What Is Ischemic Stroke?, Stroke: Resources and Support, Risk Factors for Stroke Additional Instructions / Restrictions: ST recommending MBS for history of swallowing issues Discharge Orders/Prescriptions Prescriptions: New atorvastatin 80 mg Tablet 80 mg PO QHS 30 Days Qty: 30 RF: 0 aspirin 81 mg Tablet,Chewable 81 mg PO BREAKFAST 30 Days Qty: 30 RF: 0 clopidogrel [Plavix] 75 mg tablet 75 mg PO DAILY Qty: 30 RF: 0 Continued fosinopril 10 MG tablet 10 mg PO DAILY RF: 0 albuterol sulfate 1 INHALER inhaler 1 puff inhalation PRN PRN (Reason: Sob &/Or Wheezing) RF: 0 amlodipine 5 mg Tablet 5 mg PO DAILY RF: 0 amoxicillin-pot clavulanate [Augmentin] 875-125 mg Tablet 1 tab PO BID RF: 0 glipizide 10 mg tablet extended release 24hr 10 mg PO DAILY RF: 0 omeprazole 40 mg capsule,delayed release(DR/EC) 40 mg PO DAILY RF: 0 No Action metformin 500 mg tablet extended release 24 hr 1,000 mg PO BID RF: 0 Referrals / Follow Up: Elbert Calvo MD [Primary Care Provider] - Within 1 Week Steve Michelle MD [NON-STAFF] - Within 2 Weeks Disposition Disposition (needs filled in before D/C Order can be placed): Home, Self Care Charges/Coding Addendum Addendum: Dr. Fuentes: I personally reviewed the chart and examined the patient, and agree with the above findings. 70-year-old female presented from home with left-sided numbness and tingling in her hand, started around 6:30 PM prior to arrival to the hospital. She had resolving symptoms at that time therefore she was not a TPA candidate. MRI today shows multiple embolic infarcts in the right parietal and temporal lobes. [facility] neurology was consulted and recommended dual antiplatelet therapy followed by a Holter monitor on discharge to try to capture any A. fib. She is not had any A. fib here on the monitor but if the Holter monitor does not demonstrate A. fib she may need an event monitor. She will need to be also on a high-dose statin. This was discussed with her and she expressed understanding of the risk benefits going home and would like to go home today. Echo is currently pending but I do not anticipate this holding up her discharge. Also recommend she follow-up with neurology as an outpatient. Visit Charges OBSV E&M: 06805 Observation care discharge
--- NOTE | 2021-04-28 14:06 | CASEMGMT ---
Social Work PHQ-9 assessment completed. . Patient with no concerns on returning to home. Norma Hook MSW, STACY
--- NOTE | 2021-04-28 14:53 | PHA.DC.MC ---
Pharmacy Service has performed discharge medication reconciliation and counseling for this patient. 1. ASPIRIN 81MG PO DAILY 2. ATORVASTATIN 80MG PO QHS 3. CLOPIDOGREL 75MG PO DAILY The patient's discharge medication list was reviewed for discrepancies and discrepancies were resolved. Home Medications albuterol sulfate 1 puff INHALATION PRN PRN 10/08/19 fosinopril 10 mg PO DAILY 10/08/19 amlodipine 5 mg PO DAILY 04/27/21 amoxicillin-pot clavulanate [Augmentin] 1 tab PO BID 04/27/21 glipizide 10 mg PO DAILY 04/27/21 metformin 1,000 mg PO BID 04/27/21 omeprazole 40 mg PO DAILY 04/27/21 aspirin 81 mg PO BREAKFAST 30 Days #30 tab 04/28/21 atorvastatin 80 mg PO QHS 30 Days #30 tab 04/28/21 clopidogrel [Plavix] 75 mg PO DAILY #30 tab 04/28/21 The patient was counseled on the following discharge medications and changes in medications for homegoing were reviewed. The Reason for Use, instructions for use, and potential side effects were reviewed for all new medications. The patient's questions regarding all of their medications were answered. The patient was able to verbally demonstrate an understanding of their discharge medications.
--- NOTE | 2021-04-28 15:14 | CASEMGMT ---
Per therapy, pt does not need any further therapy. Pt ready for discharge. SStaten RN CM
== END 2021-04-28 11:52 | disposition home or self-care (01) ==
LOC: ED 19:40 → PCU 19:54
PROVIDERS: Admitting Provider Internal Medicine; Emergency Provider Emergency Medicine; PCP Internal Medicine; Visit Provider Family Medicine
DX: I63.9 Cerebral infarction, unspecified (principal); R29.701 NIHSS score 1; J01.90 Acute sinusitis, unspecified; I10 Essential (primary) hypertension; E11.65 Type 2 diabetes mellitus with hyperglycemia; J44.1 Chronic obstructive pulmonary disease with (acute) exacerbation; Z79.899 Other long term (current) drug therapy; Z79.84 Long term (current) use of oral hypoglycemic drugs
CPT/HCPCS: 36415; 70450; 70496; 70498; 70551; 71045; 80048; 80053; 80061; 82962; 83036; 84484; 85025; 85610; 85730; 92610; 93005; 93225; 93226; 93306; 94640; 94762; 96360; 96361; 96372; 97161; 97166; 97802; 99218; 99251; 99285; J7030; Q9967; G0378; G0463

== ENCOUNTER → 2021-04-28 13:24 | Outpatient (CLI) | payer MEDICARE, SELFPAY ==
[2021-04-28 07:21] VITALS: BMI 22.4
== END ==
PROVIDERS: PCP Internal Medicine; Visit Provider Family Medicine
DX: G45.9 Transient cerebral ischemic attack, unspecified (principal); I49.9 Cardiac arrhythmia, unspecified
CPT/HCPCS: 93225; 93226

== ENCOUNTER 2021-05-18 08:41 | Observation (INO) | payer MEDICARE, SELFPAY ==
[2021-05-18] VITALS (14 sets, daily range): BP systolic 113–157; BP diastolic 66–96; PULSE 58–85; RESP 14–19; TEMP 35.3–37; O2SAT 96–100; BMI 22.2; BMI 22.4
--- NOTE | 2021-05-18 08:49 | ED.RN ---
PT WALKED BACK FROM TRIAGE AND PLACED ON COMPUTER SYSTEMS SUPPORT SPECIALIST BY THIS RN. DR. GILL INFORMED OF PT SX, REPORTS NO STROKE TEAM AT THIS TIME, PT TO BE EVALUATED.
--- NOTE | 2021-05-18 09:10 | CT_ITS ---
STUDY: CT HEAD STROKE PROTOCOL W/O CONTRAST INJECTION REASON FOR EXAM: Female, 70 years old. Neuro deficit, acute, stroke suspected RADIATION DOSAGE (If Supplied By Facility): CTDIvol = ( 44.99 ) mGy, DLP = ( 779.24 ) mGycm TECHNIQUE: Transaxial CT imaging of the brain was performed without administration of intravenous contrast material. Individualized dose optimization techniques were used for this CT. COMPARISON: Comparison is made with prior examination 04/27/2021. FINDINGS: Normal soft tissue structures. Normal calvarium. Normal size ventricles and extra-axial spaces for the patient''s age. Tiny lacunae in the insular cortex of the left temporal lobe. Normal basal ganglia and thalami. Normal brainstem. Normal cerebellum. There is no intracranial hemorrhage. There are no findings of an acute ischemic infarction. There is opacification of the ethmoid sinuses bilaterally. CT/STROKE Brain/Head without Cont IMPRESSION: Tiny lacuna is seen in the insular cortex of the left temporal lobe. Ethmoid sinusitis. N.B. : The above Results were Read Back by Milan Orozco MD to Denys Caro and understanding confirmed on 05/18/2021 09:25:56 (ET). Electronically Signed: Milan Orozco MD at 9:27 EDT , Service support ,
--- NOTE | 2021-05-18 09:10 | RAD_ITS ---
STUDY: X-RAY CHEST REASON FOR EXAM: Female, 70 years old. Neuro deficit, acute, stroke suspected TECHNIQUE: Single AP portable view of the chest. COMPARISON: Comparison is made with prior study dated 04/27/2021. FINDINGS: EKG electrodes are seen. Stable nodular densities seen in the left mid lung and left lower lobe. Correlation with a CT scan is recommended for further evaluation. There is no demonstrated pleural abnormality. Normal size heart. Normal mediastinum and baldev. Normal visualized pulmonary arteries. There is atherosclerotic calcification of the aortic arch with tortuosity. Normal visualized thoracic spine. Normal visualized ribs, clavicles, and shoulders. Hiatal hernia. RAD/Chest 1 View IMPRESSION: Stable nodular densities in the left mid lung and left lower lobe as described. Correlation with a CT scan is recommended. Electronically Signed: Milan rOozco MD at 10:31 EDT , Service support ,
--- NOTE | 2021-05-18 09:10 | EKG12_ITS ---
Test Reason : CP Blood Pressure : / mmHG Vent. Rate : 074 BPM Atrial Rate : 074 BPM P-R Int : 120 ms QRS Dur : 088 ms QT Int : 386 ms P-R-T Axes : 035 062 055 degrees QTc Int : 428 ms Normal sinus rhythm Normal ECG Confirmed by CORNELIO ARVIZU, HARPREET ([id number]), editor managing director JUSTIN PULIDO ([id number]) on 05/22/2021 10:24:52 AM Referred By: JEREMY Confirmed By:HARPREET GRIMES MD
--- NOTE | 2021-05-18 09:16 | EDS_ITS ---
HPI History of Present Illness Chief Complaint: Numb/Ting Informant: patient Narrative Narrative: Presenting with numbness to the right upper extremity starting at 6 AM this morning. Reports yesterday while watching the [employer] game had pain in left chest rating to right this morning which has resolved. There is no weakness to the upper extremities. Frontal headaches bilaterally. Denies head injuries. Patient concerned doing to have similar symptoms on the left side on her most recent visits reporting 10 days ago however records note this was 3 weeks ago. She states she had numbness at that time and dropped her phone in her left hand and there were some speech changes. She was evaluated in the ED no TPA. States she was admitted and MRI showed multiple strokes. She states she was started on aspirin and Plavix however has only been using her Plavix. History of COPD diabetes. Denies any speech changes. Denies visual changes. Prior similar symptoms: Yes Recent Illness/Hospitalization: Yes [facility] Medical History Asthma Cervical spinal stenosis COPD (chronic obstructive pulmonary disease) Diabetes Diabetes Hiatal hernia History of diverticulitis History of pancreatitis Hypertension Home Medications albuterol sulfate 1 puff INHALATION PRN PRN 10/08/19 [History Last Taken 04/19/21] fosinopril 10 mg PO DAILY 10/08/19 [History Last Taken 05/17/21 09:00] amlodipine 5 mg PO DAILY 04/27/21 [History Last Taken 05/17/21 09:00] glipizide 10 mg PO DAILY 04/27/21 [History Last Taken 05/17/21 09:00] metformin 1,000 mg PO BID 04/27/21 [History Last Taken 05/17/21 21:00] omeprazole 40 mg PO DAILY 04/27/21 [History Last Taken 05/17/21 09:00] aspirin 81 mg PO BREAKFAST 30 Days #30 tab 04/28/21 [Rx Last Taken 05/17/21 09:00] atorvastatin 80 mg PO QHS 30 Days #30 tab 04/28/21 [Rx Last Taken 05/17/21 21:00] clopidogrel [Plavix] 75 mg PO DAILY #30 tab 04/28/21 [Rx Last Taken 05/17/21 09:00] Allergy/AdvReac Type Severity Reaction Status Date / Time No Known Allergies Allergy Verified 05/18/21 08:41 Family History Father CVA (cerebral vascular accident) Brother CVA (cerebral vascular accident) Other Asthma Surgical History History of cholecystectomy History of esophagogastroduodenoscopy (EGD) History of tubal ligation Social History Smoking Status: Never smoker alcohol intake: current details: infrequent substance use type: does not use ROS ROS ED Constitutional Constitutional ED: Denies chills, fever(s) or sweats Eyes Eyes: Denies change in vision ENT ENT ED: Denies dysphagia or sore throat Cardiovascular Cardiovascular: Reports chest pain; Denies leg edema, palpitations or racing heartbeat Respiratory/Chest Respiratory/Chest: Denies cough, dyspnea or dyspnea on exertion Gastrointestinal Gastrointestinal: Denies abdominal pain, diarrhea, nausea or vomiting Genitourinary Genitourinary ED: Denies dysuria, hematuria or urinary frequency Musculoskeletal Musculoskeletal: Denies back pain, extremity pain or neck pain Integumentary Denies rash or wounds Neurologic Neurologic: Reports headache(s) and paresthesias; Denies weakness EXAM Physical Exam Const Vital Signs: 05/18/21 08:42 05/18/21 09:01 05/18/21 09:21 Temperature 95.5 F L Temperature Source Temporal Pulse Rate 85 Respiratory Rate 16 Respiratory Effort Normal Short of Breath Blood Pressure 157/87 H Blood Pressure Mean 110 Pulse Ox 100 99 Oxygen Delivery Method Room Air Room Air 05/18/21 09:37 05/18/21 09:53 05/18/21 10:18 Temperature 97.8 F Temperature Source Temporal Pulse Rate 71 64 66 Respiratory Rate 14 14 14 Respiratory Effort Blood Pressure 145/66 H 118/96 H 124/76 H Blood Pressure Mean 92 103 92 Pulse Ox 98 98 98 Oxygen Delivery Method Room Air Room Air Room Air 05/18/21 11:00 05/18/21 11:45 Temperature 98.6 F 98.6 F Temperature Source Oral Oral Pulse Rate 62 62 Respiratory Rate 19 H 19 H Respiratory Effort Blood Pressure 113/94 H 113/94 H Blood Pressure Mean 100 100 Pulse Ox 99 99 Oxygen Delivery Method Room Air Room Air Positive well nourished and well developed General Appearance ED: well developed and NAD HEENT Reports moist mucous membranes normocephalic and atraumatic Eyes PERRL, EOMs intact bilaterally and conjunctivae normal General Eye ED: Yes normal appearance of both eyes Neck no lymphadenopathy and supple General: Negative for tenderness Chest Wall Chest: Negative for tenderness Resp normal respiratory effort and normal air movement Effort and Inspection: symmetric chest movement; Negative for respiratory distress Cardio regular rate, regular rhythm and no murmurs Peripheral Pulses: pulses 2+ throughout GI normal to inspection, nondistended, normoactive bowel sounds and non-tender Palpation: Negative for guarding or rebound tenderness present Back/Spine no CVA tenderness and no thoracic nor lumbar tenderness Extremity normal to inspection General Extremety ED: Negative for edema or tenderness General Extremity: Negative for edema Neuro oriented x3 Neuro Narrative: NIH of 1 due to paresthesias right upper extremity at wrist and hand along with right lower extremity at the ankle. There is no weakness. Sensorium / Orientation: awake and alert Skin no rashes or lesions noted and no wounds STROKE Vital Signs/Narrative: Vital Signs Temp Pulse Resp BP Pulse Ox 05/18/21 09:37 71 14 145/66 H 98 05/18/21 09:21 99 05/18/21 08:42 95.5 F L 85 16 157/87 H 100 Inital Vital Signs reviewed: Yes NIHSS Initial: 1a Level of Consciousness: 0 1b LOC Questions (Score 2 if aphasic/stupor): 0 1c LOC Commands (Only score 1st attempt): 0 2 Best Gaze (If aphasic, use reflexive mvmts.): 0 3 Visual: 0 4 Facial Palsy: 0 5 Motor Arm Right (UN = amputation/fusion): 0 5 Motor Arm Left: 0 6 Motor Leg Right: 0 6 Motor Leg Left: 0 7 Limb ataxia (Only + if out of proportion): 0 8 Sensory (Aphasia/stupor=0 or 1, coma=2): 1 9 Best Language: 0 10 Dysarthria (mute, coma=2, intubated=UN): 0 11 Extinction and Inattention (only scored if +): 0 Total Score: 1 2nd Follow up: 1a Level of Consciousness: 0 1b LOC Questions (Score 2 if aphasic/stupor): 0 1c LOC Commands (Only score 1st attempt): 0 2 Best Gaze (If aphasic, use reflexive mvmts.): 0 3 Visual: 0 4 Facial Palsy: 0 5 Motor Arm Right (UN = amputation/fusion): 0 5 Motor Arm Left: 0 6 Motor Leg Right: 0 6 Motor Leg Left: 0 7 Limb ataxia (Only + if out of proportion): 0 8 Sensory (Aphasia/stupor=0 or 1, coma=2): 1 9 Best Language: 0 10 Dysarthria (mute, coma=2, intubated=UN): 0 11 Extinction and Inattention (only scored if +): 0 Total Score: 1 MDM MDM MDM Narrative Medical decision making narrative: Stroke team initiated due to time of onset at 3 hours. Isolated paresthesia NIH of 1. Neurology on teleconference recommended repeat CTA which was obtained. Callback from radiologist reported remote infarct left insular call text of right temporal lobe. This was not noted on MRI recently. We discussed with neurologist, they recommended admission with neuro monitoring and repeat MRI in the hospital. They recommended aspirin which was given. Patient passed her swallow test prior. I spoke with hospitalist Dr. Vaz for admission. Lab Data Attestation: I reviewed the patient's lab results. Labs: Laboratory Results - last 24 hr 05/18/21 05/18/21 05/18/21 08:56 08:56 09:26 WBC 6.9 RBC 5.01 Hgb 13.4 Hct 43.0 MCV 85.8 MCH 26.7 L MCHC 31.2 L RDW Std Deviation 46.6 H RDW Coeff of Williams 14.8 H Plt Count 289 MPV 10.7 Immature Gran % (Auto) 0.100 Neut % (Auto) 51.2 Lymph % (Auto) 38.0 [place] % (Auto) 6.9 Eos % (Auto) 2.9 Baso % (Auto) 0.9 Absolute Neuts (auto) 3.6 Absolute Lymphs (auto) 2.64 Nucleated RBC % 0 PT 12.6 INR 1.0 APTT 24.5 Sodium 133 L Potassium 5.0 Chloride 103 Carbon Dioxide 25.0 Anion Gap 5 BUN 19 H Creatinine 0.86 Estim Creat Clear Calc 55.55 Est GFR (MDRD) Af Amer 84 Est GFR (MDRD) Non-Af 70 BUN/Creatinine Ratio 22.1 H Glucose 298 H Calcium 9.5 Troponin I High Sens 6 POC Glucose 08/26/21 09:26 WBC RBC Hgb Hct MCV MCH MCHC RDW Std Deviation RDW Coeff of Williams Plt Count MPV Immature Gran % (Auto) Neut % (Auto) Lymph % (Auto) [place] % (Auto) Eos % (Auto) Baso % (Auto) Absolute Neuts (auto) Absolute Lymphs (auto) Nucleated RBC % PT INR APTT Sodium Potassium Chloride Carbon Dioxide Anion Gap BUN Creatinine Estim Creat Clear Calc Est GFR (MDRD) Af Amer Est GFR (MDRD) Non-Af BUN/Creatinine Ratio Glucose Calcium Troponin I High Sens POC Glucose 293 H Radiography Diagnostic Testing: Radiology Impression Brain CT 05/18/21 09:10 IMPRESSION: Tiny lacuna is seen in the insular cortex of the left temporal lobe. Ethmoid sinusitis. N.B. : The above Results were Read Back by Milan Orozco MD to Denys Caro and understanding confirmed on 05/18/2021 09:25:56 (ET). Electronically Signed: Milan Orozco MD at 9:27 EDT , Service support , ADDENDUM: 05/18/21 0935 IMPRESSION: Tiny lacuna is seen in the insular cortex of the left temporal lobe. Ethmoid sinusitis. N.B. : The above Results were Read Back by Milan Orozco MD to Denys Caro and understanding confirmed on 05/18/2021 09:25:56 (ET). Electronically Signed: Milan Orozco MD at 9:27 EDT , Service support , Chest X-Ray 05/18/21 09:10 IMPRESSION: Stable nodular densities in the left mid lung and left lower lobe as described. Correlation with a CT scan is recommended. Electronically Signed: Milan Orozco MD at 10:31 EDT , Service support , Head/Neck CTA 05/18/21 09:32 IMPRESSION: Calcific plaque at the origin of the right carotid bifurcation causing less than 50% narrowing. Electronically Signed: Milan Orozco MD at 10:44 EDT , Service support , EKG Initial EKG: Attestation: I personally reviewed and interpreted this EKG as follows: Comments: Sinus rate of 74, no ST or T wave changes. Critical Care Time Critical Care Time: Yes Critical care time (excluding procedures): 30-74 minutes, Discussing w/Patient &/or Family/Resident Care Provider, Discussing w/Consultants, Arranging Admission or Transfer, Performing Direct Patient Care at Bedside and - (40 minutes critical care time) Discharge Plan Dx/Rx/DC Orders Clinical Impression: Paresthesia of right upper extremity, Headache Disposition Disposition: Acute Care Hospital [facility] Discharge Date/Time: 05/18/21 11:46
[2021-05-18 09:31] LABS: Absolute Lymphocyte Count 2.64 X10^3/uL (0.83-4.51); Absolute Neutrophil Count 3.6 X10^3/uL (2.0-7.7); Basophil# 0.06 X10^3/uL; Basophil% 0.9 % (0-1); Eosinophils% 2.9 % (0-5); Hemoglobin 13.4 g/dL (12.0-15.0); Lymphocyte # 2.64 X10^3/ul (0.83-4.51); Mean Corp Hgb Conc 31.2 g/dL (32-36); Mean Corpuscular Hgb 26.7 pg (27.0-32.0); Mean Corpuscular Volume 85.8 fL (81-99); Mean Platelet Vol. 10.7 fl (6.2-12.0); Monocyte# 0.48 X10^3/uL; Monocyte% 6.9 % (0-10); NRBC Flagged by Analyzer 0 % (0-5); Neutrophil # 3.55 X10^3/uL (2.7-7.7); Neutrophil % 51.2 % (47-70); Platelet Count 289 K/mm3 (150-450); RBC Distribution Width CV 14.8 % (11.6-14.6); RBC Distribution Width SD 46.6 fl (35.1-43.9); Red Blood Count 5.01 M/mm3 (4.2-5.4); White Blood Count 6.9 K/mm3 (4.4-11.0)
--- NOTE | 2021-05-18 09:32 | CT_ITS ---
STUDY: CTA HEAD AND NECK WITH CONTRAST REASON FOR EXAM: Female, 70 years old. Right wrist and ankle paresthesia RADIATION DOSAGE (If Supplied By Facility): CTDIvol = ( 18.35 ) mGy, DLP = ( 574.23 ) mGycm TECHNIQUE: CT angiography was performed with a multi-detector CT scanner. Data acquisition was obtained from the skull base through the vertex following intravenous administration of IV 100mL [id number]. MIP images were reconstructed from the axial data set. Post-processing of the angiographic images was performed, with multiplanar reformation and 3D reconstruction. Individualized dose optimization techniques were used for this CT. COMPARISON: Comparison is made with prior study dated 04/27/2021. FINDINGS: Normal bilateral petrous carotid arteries. There is calcified plaque formation of the right cavernous carotid artery, without a cross-sectional luminal stenosis. There is calcified plaque formation of the left cavernous carotid artery, without a cross-sectional luminal stenosis. Normal right A1 segments of the anterior cerebral artery. Normal left A1 segments of the anterior cerebral artery. Normal intact anterior communicating artery (ACOM). Normal bilateral A2 segments of the anterior cerebral arteries. Normal right M1 and M2 segments of the middle cerebral arteries, with a normal M1 bifurcation. Normal left M1 and M2 segments of the middle cerebral arteries, with a normal M1 bifurcation. There is a persistent origin of the right posterior cerebral artery with absence of the posterior communicating artery (PCOM). There is a persistent origin of the left posterior cerebral artery with absence of the posterior communicating artery (PCOM). Normal bilateral vertebral arteries. Normal basilar artery with a normal basilar bifurcation. The visualized bilateral superior cerebellar (SCA) arteries are normal. Normal bilateral P1, P2 and visualized P3 segments of the posterior cerebral arteries. There is no demonstrated aneurysm of the [place]. There is no demonstrated abnormality of the visualized brain. AORTIC ARCH: There is a mild degree of atherosclerotic calcific plaque formation of the aortic arch and great vessels arising from the aortic arch, without a hemodynamically significant stenosis. There is a normal origin of the brachiocephalic, left common carotid, and left subclavian arteries. RIGHT CAROTID ARTERIES: Normal right common carotid artery (CCA). Normal right common carotid bulb. There is mild atherosclerotic plaque formation of the origin of the right internal carotid artery with less than 50% cross sectional diameter stenosis. Normal visualized cervical portion of the right internal carotid artery. Normal origin of the right external carotid artery (ECA). LEFT CAROTID ARTERIES: Normal left common carotid artery (CCA). Normal left common carotid bulb. Normal origin of the left internal carotid (ICA) artery without a hemodynamically significant stenosis. Normal visualized cervical portion of the left internal carotid artery. Normal origin of the left external carotid artery (ECA). VERTEBRAL ARTERIES: There is enhancement within the bilateral vertebral arteries with a small left vertebral artery, and a dominant right vertebral artery. CT/CTA Head AND Neck W/ Contrast IMPRESSION: Calcific plaque at the origin of the right carotid bifurcation causing less than 50% narrowing. Electronically Signed: Milan Orozco MD at 10:44 EDT , Service support ,
[2021-05-18] MEDS: Aspirin 325 MG Tablet PO (09:36)
[2021-05-18 09:46] LABS: Bedside Glucose 293 mg/dL (70-110)
[2021-05-18 09:49] LABS: Prothrombin Time (Protime)PT. 12.6 SECONDS (11.7-14.9)
[2021-05-18 09:50] LABS: Partial Thromboplast Time 24.5 Seconds (24.1-36.2)
[2021-05-18 09:53] LABS: Anion Gap 5 (5-15); BUN 19 mg/dL (7-18); BUN/Creat Ratio 22.1 RATIO (10-20); Calcium,Total 9.5 mg/dL (8.5-10.1); Chloride 103 mmol/L (98-107); Creatinine, Serum 0.86 mg/dL (0.55-1.02); EST Glomerular Filtration Rate 70 mL/min (>60); Est Glom Filt Rate - Afr Amer 84 mL/min (>60); Estimated Creatinine Clearance 55.55 ml/min; Glucose 298 mg/dL (74-106); Sodium Level 133 mmol/L (136-145); Troponin-I HS 6 pg/mL (3.0-54.0)
--- NOTE | 2021-05-18 12:06 | HP.PCM.HOS_ITS ---
HPI - General General Date of Admission: 05/18/21 HPI Narrative LORE WHITAKER, is a 70 F who presented for right upper extremity paresthesias. She reports that while watching the [employer] game last evening she had some chest pain that has resolved. She had a frontal headache bilaterally and reports that she had some paresthesias in her right arm and leg last evening. She went to bed and has had persistent right upper extremity paresthesias so she came to the emergency department. She was admitted earlier this month with left-sided weakness and tingling and numbness with some speech changes. She was evaluated as a stroke team at that time and no TPA was given. 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 She had a CTA of her head and neck which was negative for any blockages. She had an echocardiogram dated 04/27/2021 that showed an EF of 55 to 60% and normal LV. An outpatient event monitor was performed and showed PVCs but no other arrhythmia. She was discharged on aspirin and Plavix on 04/28/2021 and instructed to follow-up with neurology, for which she has an appointment in June, but she states she has not been compliant with her aspirin as she just never picked it up. She states she has been compliant with her Plavix however. At the time of my evaluation she has persistent right upper extremity paresthesias most notably distal with no motor deficit upper or lower extremity or in the cranial nerves. She has some mild residual motor weakness and tingling in her left upper extremity from her previous infarct. Her vital signs in the emergency department were unremarkable. A CT of her head was performed and showed her old infarcts but no acute processes. Upon request of the neurologist a repeat of her head CTA was performed and was benign. [facility] stroke neurology recommend admission for observation and repeat MRI discussion with the emergency department physician. They had no additional therapeutic recommendations however at this time. Her CBC and BMP were unremarkable. The patient states she has been on antibiotics for recent sinus infection. [facility] Medical History Asthma Cervical spinal stenosis COPD (chronic obstructive pulmonary disease) Diabetes Diabetes Hiatal hernia History of diverticulitis History of pancreatitis Hypertension Home Medications albuterol sulfate 1 puff INHALATION PRN PRN 10/08/19 [History Last Taken U nknown] fosinopril 10 mg PO DAILY 10/08/19 [History Last Taken 04/27/21] amlodipine 5 mg PO DAILY 04/27/21 [History Last Taken 04/27/21] amoxicillin-pot clavulanate [Augmentin] 1 tab PO BID 04/27/21 [History Last Taken 04/27/21] glipizide 10 mg PO DAILY 04/27/21 [History Last Taken 04/27/21] metformin 1,000 mg PO BID 04/27/21 [History Last Taken 04/27/21] omeprazole 40 mg PO DAILY 04/27/21 [History Last Taken 04/27/21] aspirin 81 mg PO BREAKFAST 30 Days #30 tab 04/28/21 [Rx Last Taken Unknown] atorvastatin 80 mg PO QHS 30 Days #30 tab 04/28/21 [Rx Last Taken Unknown] clopidogrel [Plavix] 75 mg PO DAILY #30 tab 04/28/21 [Rx Last Taken Unknown] Allergy/AdvReac Type Severity Reaction Status Date / Time No Known Allergies Allergy Verified 05/18/21 08:41 Family History Father CVA (cerebral vascular accident) Brother CVA (cerebral vascular accident) Other Asthma Surgical History History of cholecystectomy History of esophagogastroduodenoscopy (EGD) History of tubal ligation Social History Smoking Status: Never smoker alcohol intake: current details: infrequent substance use type: does not use ROS Constitutional Constitutional: Denies anorexia, change in weight, chills, fatigue, fever(s), malaise, night sweats, weakness or other Eyes Eyes: Denies blurry vision, change in eye color, change in vision, discharge from eye(s), double vision, erythema, eye pain, loss of vision or other ENT HEENT: Reports nasal congestion and sinus pressure; Denies abnormal hearing, dysphagia, ear pain, epistaxis, headache(s), hearing loss, nasal discharge, post nasal drip, sore throat or other Cardiovascular Cardiovascular: Denies chest pain, claudication, dyspnea on exertion, edema, lightheadedness, orthopnea, palpitations, paroxysmal nocturnal dyspnea, rapid heart rate, syncope or other Respiratory/Chest Respiratory/Chest: Denies cough, dyspnea, excessive phlegm production, hemoptysis, productive cough, shortness of breath at rest, shortness of breath with exertion, wheezing or other Gastrointestinal Gastrointestinal: Denies abdominal pain, coffee ground emesis, constipation, sofía rrhea, dyspepsia, hematemesis, hematochezia, loose stools, melena, nausea, vomiting or other Genitourinary Genitourinary: Denies burning urination, difficulty urinating, dysuria, hematuria, nocturia, urinary frequency, urinary hesitancy, urinary incontinence, urinary urgency or other Musculoskeletal Musculoskeletal: Denies arthralgias, back pain, joint pain, joint stiffness, joint swelling, myalgias, neck pain or other Neurologic Neurologic: Reports focal weakness and paresthesias RUE Psychiatric Psychiatric: Denies anxiety, depression, homicidal ideation, suicidal ideation or other Endocrine Endocrinology: Denies change in body appearance, cold intolerance, excessive sweating, heat intolerance, polydipsia, polyuria or other Hematologic/Lymphatic Hematologic/Lymphatic: Denies anemia, easy bleeding, easy bruising, lymphadenopathy or other Allergic/Immunologic Allergic/Immunologic: Denies rhinitis, hives, eczemia, asthma or other Vital Signs Vital Signs Vital Signs: 05/18/21 08:42 05/18/21 09:01 05/18/21 09:21 Temperature 95.5 F L Temperature Source Temporal Pulse Rate 85 Respiratory Rate 16 Respiratory Effort Normal Short of Breath Blood Pressure 157/87 H Blood Pressure Mean 110 Pulse Ox 100 99 Oxygen Delivery Method Room Air Room Air 05/18/21 09:37 05/18/21 09:53 05/18/21 10:18 Temperature 97.8 F Temperature Source Temporal Pulse Rate 71 64 66 Respiratory Rate 14 14 14 Respiratory Effort Blood Pressure 145/66 H 118/96 H 124/76 H Blood Pressure Mean 92 103 92 Pulse Ox 98 98 98 Oxygen Delivery Method Room Air Room Air Room Air 05/18/21 11:00 05/18/21 11:45 Temperature 98.6 F 98.6 F Temperature Source Oral Oral Pulse Rate 62 62 Respiratory Rate 19 H 19 H Respiratory Effort Blood Pressure 113/94 H 113/94 H Blood Pressure Mean 100 100 Pulse Ox 99 99 Oxygen Delivery Method Room Air Room Air Weight Weight: 60.6 kg Body Mass Index (BMI) 22.2 Physical Exam Const alert, oriented x3 and no apparent distress Constitutional Narrative: Older white female sitting up in bed to family members at bedside, patient is appropriately interactive, nontoxic, appears well General Appearance: cooperative HEENT normocephalic, head/scalp atraumatic, hearing grossly normal bilaterally and moist oral mucous membranes Mouth: oral and palatal mucosa normal Eyes PERRL, EOMs intact bilaterally and conjunctivae normal Neck no lymphadenopathy, supple, no JVD and no carotid bruits Resp normal respiratory effort, no retractions, no use of accessory muscles and clear to auscultation bilaterally Auscultation: Negative for crackles, rales, rhonchi or wheezes Cardio regular rate, regular rhythm, S1 normal heart sound, S2 normal heart sound, no murmurs, no rub, no gallops, no clicks and no JVD GI normal to inspection, nondistended, normoactive bowel sounds, soft to palpation, non-tender and non-distended Extremity normal to inspection and no clubbing, cyanosis or edema Peripheral Pulses: Yes pulses 2+ throughout Skin no rashes or lesions noted, no wounds, skin turgor normal, no jaundice, no petechiae and no mottling Neuro oriented x3, CN's II-XII intact bilaterally and moves all extremities Neuro Narrative: Mild weakness in the left hand, no pronator drift bilaterally, no lower extremity weakness noted bilaterally, sensory impairment right hand /forearm Sensorium / Orientation: awake, alert, oriented to person, oriented to place and oriented to time Psych affect normal Psych Narrative: Very pleasant Results Lab / Micro Data Attestation: I reviewed the patient's lab results. Result Diagrams: 05/18/21 08:56 05/18/21 08:56 Labs: Laboratory Results - last 24 hr 05/18/21 08:56: WBC 6.9, RBC 5.01, Hgb 13.4, Hct 43.0, MCV 85.8, MCH 26.7 L, MCHC 31.2 L, RDW Std Deviation 46.6 H, RDW Coeff of Williams 14.8 H, Plt Count 289, MPV 10.7, Immature Gran % (Auto) 0.100, Neut % (Auto) 51.2, Lymph % (Auto) 38.0, [place] % (Auto) 6.9, Eos % (Auto) 2.9, Baso % (Auto) 0.9, Absolute Neuts (auto) 3.6, Absolute Lymphs (auto) 2.64, Nucleated RBC % 0 05/18/21 08:56: Sodium 133 L, Potassium 5.0, Chloride 103, Carbon Dioxide 25.0, Anion Gap 5, BUN 19 H, Creatinine 0.86, Estim Creat Clear Calc 55.55, Est GFR (MDRD) Af Amer 84, Est GFR (MDRD) Non-Af 70, BUN/Creatinine Ratio 22.1 H, Glucose 298 H, Calcium 9.5, Troponin I High Sens 6 05/18/21 09:26: PT 12.6, INR 1.0, APTT 24.5 05/18/21 09:26: POC Glucose 293 H Radiology Impression Brain CT 05/18/21 09:10 IMPRESSION: Tiny lacuna is seen in the insular cortex of the left temporal lobe. Ethmoid sinusitis. N.B. : The above Results were Read Back by Milan Orozco MD to Denys Caro and understanding confirmed on 05/18/2021 09:25:56 (ET). Electronically Signed: Milan Orozco MD at 9:27 EDT , Service support , ADDENDUM: 05/18/2135 IMPRESSION: Tiny lacuna is seen in the insular cortex of the left temporal lobe. Ethmoid sinusitis. N.B. : The above Results were Read Back by Milan Orozco MD to Denys Caro and understanding confirmed on 05/18/2021 09:25:56 (ET). Electronically Signed: Milan Orozco MD at 9:27 EDT , Service support , Chest X-Ray 05/18/21 09:10 IMPRESSION: Stable nodular densities in the left mid lung and left lower lobe as described. Correlation with a CT scan is recommended. Electronically Signed: Milan Orozco MD at 10:31 EDT , Service support , Head/Neck CTA 05/18/21 09:32 IMPRESSION: Calcific plaque at the origin of the right carotid bifurcation causing less than 50% narrowing. Electronically Signed: Milan Orozco MD at 10:44 EDT , Service support , Assessment & Plan Assessment/Plan (1) Paresthesia of right upper extremity: PLAN: Right upper extremity paresthesias--> stroke/TIA rule out in progress -No need to repeat hemoglobin A1c or lipids as they have already been done this month with previous admission -No need to repeat echocardiogram as this was done on 04/28/2021 and showed an EF of 55 to 60% -Patient had a negative event monitor as an outpatient -Restart aspirin as patient has been noncompliant with this at home -Continue Plavix -Continue statin -MRI in a.m. -PT/OT consultation DM-uncontrolled -Hemoglobin A1c with last stroke admission on 04/27/2021 was 10.2 -Continue home medications and monitor blood sugars -Patient may need some Lantus for basal control with continued oral medications -We will assess for need over the next 24 hours Hypertension/hyperlipidemia -Continue home medications including amlodipine, atorvastatin, fosinopril -Monitor blood pressure -No need to repeat lipid-LDL was 107 earlier this month GERD -Continue PPI Sinus infection -Patient is completing antibiotics for recent diagnosis -Continue Augmentin until completed DVT prophylaxis -Continue Lovenox -SCDs CODE STATUS -Full code Charges/Coding Visit Charges Inpatient E&M: 27839 Init Hosp L3
[2021-05-18 13:25] LABS: Bedside Glucose 193 mg/dL (70-110)
[2021-05-18] MEDS: Insulin Lispro 100 UNIT/ML INSULN.PEN SC ×2 (13:28→16:38)
--- NOTE | 2021-05-18 15:11 | PCS.PANDOC ---
PANDEMIC DOCUMENTATION INITIATED: Date: 05/08/2021 Time: 190
[2021-05-18] MEDS: metFORMIN (XR) 500 MG Tablet 1000 MG PO (16:38)
[2021-05-18 17:10] LABS: Bedside Glucose 289 mg/dL (70-110)
[2021-05-18] MEDS: Atorvastatin Calcium 80 MG Tablet PO (20:32)
[2021-05-18 21:46] LABS: Bedside Glucose 296 mg/dL (70-110)
[2021-05-18] MEDS: Famotidine 20 MG Tablet PO (22:24)
[2021-05-19] VITALS (8 sets, daily range): BP systolic 102–140; BP diastolic 74–85; PULSE 63–80; RESP 12–18; TEMP 36.2–36.7; O2SAT 96–100; BMI 22.4
--- NOTE | 2021-05-19 06:00 | MRI_ITS ---
STUDY: MRI BRAIN WITHOUT CONTRAST REASON FOR EXAM: Female, 70 years old. stroke TECHNIQUE: Standardized multiplanar fat and water weighted pulse sequences were obtained. COMPARISON: 04/28/2021 FINDINGS: There is mild cerebral atrophy with widening of the extra-axial spaces and ventricular dilatation. Normal white matter tracts of the supratentorial brain. There is no evidence for recent intracranial ischemia or other cause of cytotoxic edema on diffusion weighted imaging (DWI). Normal T2* images of the brain without demonstrated susceptibility artifact. There is no demonstrated hemosiderin stain. Focal gliosis within the right parietal lobe at the site of recent infarcts. Normal bilateral basal ganglia. Normal thalami. There is no extra-axial fluid accumulation. Normal flow voids within the major intracranial circulation suggesting patency by spin echo criteria. Normal sella turcica, pituitary gland, infundibular stalk, optic chiasm and hypothalamus. Normal tectal plate and pineal gland. Normal midbrain, jenny and medulla. Normal cerebellum. Normal basal cisterns. Normal bilateral temporal bones. Normal bilateral internal auditory canals. No demonstrated orbital abnormality, within the constraints of a routine brain study. Normal visualized paranasal sinuses. Normal calvarium and skull base. Normal visualized soft tissue structures. Normal visualized upper cervical spine. MRI/Brain without Contrast IMPRESSION: Involutional changes of the brain, as described above. No acute infarct. Electronically Signed: Daniel Lovell MD at 13:08 EDT Tel , Service support ,
[2021-05-19] MEDS: Insulin Lispro 100 UNIT/ML INSULN.PEN SC ×2 (06:15→11:19)
[2021-05-19 06:26] LABS: Bedside Glucose 251 mg/dL (70-110)
[2021-05-19 07:19] LABS: Anion Gap 8 (5-15); BUN 18 mg/dL (7-18); BUN/Creat Ratio 26.9 RATIO (10-20); Calcium,Total 8.6 mg/dL (8.5-10.1); Chloride 105 mmol/L (98-107); Creatinine, Serum 0.67 mg/dL (0.55-1.02); EST Glomerular Filtration Rate 93 mL/min (>60); Est Glom Filt Rate - Afr Amer 112 mL/min (>60); Estimated Creatinine Clearance 47.78 ml/min; Glucose 276 mg/dL (74-106); Potassium 4.1 mmol/L (3.5-5.1); Sodium Level 137 mmol/L (136-145)
[2021-05-19] MEDS: Aspirin 81 MG TAB.CHEW PO (08:20)
[2021-05-19] MEDS: metFORMIN (XR) 500 MG Tablet 1000 MG PO (08:20)
[2021-05-19] MEDS: glipiZIDE XL 5 MG Tablet 10 MG PO (08:20)
[2021-05-19 08:40] LABS: Bedside Glucose 264 mg/dL (70-110)
--- NOTE | 2021-05-19 10:09 | CASEMGMT ---
Pt completed PHQ-9 w/pt, no indications of depression at this time. SW asked pt if she would like information about strok support group, pt declined. STACY Potts
[2021-05-19] MEDS: amLODIPine 5 MG Tablet PO (10:15)
[2021-05-19] MEDS: Lisinopril 10 MG Tablet PO (10:15)
[2021-05-19] MEDS: Enoxaparin 40 MG/0.4 ML Syringe SC (10:15)
[2021-05-19] MEDS: Clopidogrel Bisulfate 75 MG Tablet PO (10:15)
[2021-05-19] MEDS: Pantoprazole Sodium 40 MG Tablet PO (10:15)
[2021-05-19] MEDS: Famotidine 20 MG Tablet PO (10:15)
[2021-05-19 11:45] LABS: Bedside Glucose 322 mg/dL (70-110)
--- NOTE | 2021-05-19 12:12 | DS.PCM_ITS ---
Providers Date of Admission: 05/18/21 Primary Care Physician: Dr. Elbert Calvo MD Reason For Visit: PARESTHESIAS, TIA Diagnosis Discharge Diagnosis (1) Paresthesia of right upper extremity: Status: Acute Code(s): R20.2 - Paresthesia of skin Medications at Discharge Home Medications albuterol sulfate 1 puff INHALATION PRN PRN 10/08/19 fosinopril 10 mg PO DAILY 10/08/19 amlodipine 5 mg PO DAILY 04/27/21 glipizide 10 mg PO DAILY 04/27/21 metformin 1,000 mg PO BID 04/27/21 omeprazole 40 mg PO DAILY 04/27/21 aspirin 81 mg PO BREAKFAST 30 Days #30 tab 04/28/21 atorvastatin 80 mg PO QHS 30 Days #30 tab 04/28/21 clopidogrel [Plavix] 75 mg PO DAILY #30 tab 04/28/21 Hospital Course Operations None Summary of Care Provided Minutes Spent on Discharge: 28 Hospital Course: LORE WHITAKER, is a 70 F who presented to [facility] on 05/18/2021 for right upper extremity paresthesias. She reported that while watching the [employer] game on the evening evening prior to admission she had some chest pain that has resolved. She had a frontal headache bilaterally and reports that she had some paresthesias in her right arm and leg last evening. She went to bed and has had persistent right upper extremity paresthesias so she came to the emergency department. She was admitted earlier this month with left-sided weakness and tingling and numbness with some speech changes. She was evaluated as a stroke team at that time and no TPA was given. 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 She had a CTA of her head and neck which was negative for any blockages. She had an echocardiogram dated 04/27/2021 that showed an EF of 55 to 60% and normal LV. An outpatient event monitor was performed and showed PVCs but no other arrhythmia. She was discharged on aspirin and Plavix on 04/28/2021 and instructed to follow-up with neurology, for which she has an appointment in June, but she stated she had not been compliant with her aspirin as she just never picked it up. She stated she had been compliant with her Plavix however. At the time of my evaluation in the emergency department she had persistent right upper extremity paresthesias most notably distal with no motor deficit upper or lower extremity or in the cranial nerves. She has some mild residual motor weakness and tingling in her left upper extremity from her previous infarct. Her vital signs in the emergency department were unrem arkable. A CT of her head was performed and showed her old infarcts but no acute processes. Upon request of the neurologist a repeat of her head CTA was performed and was benign. [facility] stroke neurology recommend admission for observation and repeat MRI discussion with the emergency department physician. They had no additional therapeutic recommendations however at this time. Her CBC and BMP were unremarkable. She was admitted to PCU where a repeat MRI was performed and showed stable right-sided infarcts but no acute infarct was noted at this time. We did not feel it was prudent to repeat an echocardiogram as she had one earlier this month that was normal. Her hemoglobin A1c earlier in April was 10.2. This was discussed with the patient and she stated that her primary care physician has started her on Trulicity and she was waiting for prior authorization before she was picking it up. She stated that she did get notification from the pharmacy with regards to this prescription so she will be starting this after discharge. She was discharged in stable condition and instructed to follow-up with her primary care physician in 1 week. And follow- up with the neurologist as she has already scheduled. We did impress upon her the importance of starting her aspirin and continuing Plavix. Discharge diagnoses: Right upper extremity paresthesias History of right parietal and temporal lobe strokes DM-2 uncontrolled Hyperlipidemia GERD Persistent left upper extremity weakness/paresthesias Physical Exam Narrative Patient resorts that her paresthesias have improved in her right upper extremity. No other neurological changes. No issues overnight. Const alert, oriented x3 and no apparent distress Constitutional Narrative: Older white female sitting up in bed nursing is at the bedside, patient is nontoxic, appears well General Appearance: cooperative, comfortable, well kempt and well developed Orientation / Consciousness: awake HEENT normocephalic, head/scalp atraumatic, hearing grossly normal bilaterally and moist oral mucous membranes Eyes PERRL, EOMs intact bilaterally and conjunctivae normal Neck no lymphadenopathy, supple and no JVD Resp normal respiratory effort, no retractions, no use of accessory muscles and clear to auscultation bilaterally Auscultation: Negative for crackles, rales, rhonchi or wheezes Cardio regular rate, regular rhythm, S1 normal heart sound, S2 normal heart sound, no murmurs, no rub, no gallops, no clicks and no JVD GI normal to inspection, nondistended, normoactive bowel sounds, soft to palpation, non-tender and non-distended Extremity normal to inspection and no clubbing, cyanosis or edema Skin no rashes or lesions noted, no wounds, skin turgor normal, no jaundice, no petechiae and no mottling Neuro oriented x3, CN's II-XII intact bilaterally and moves all extremities Neuro Narrative: Mild weakness in the left hand, mild residual paresthesia right hand but no motor deficit Sensorium / Orientation: awake, alert, oriented to person, oriented to place and oriented to time Psych affect normal Psych Narrative: Very pleasant Weight / BMI Weight Weight: 61.1 kg Body Mass Index (BMI) 22.4 ABG / Lab / Microbiology Data Result Diagrams: 05/18/21 08:56 05/19/21 06:10 Laboratory: Laboratory Results - last 24 hr 05/18/21 12:46: POC Glucose 193 H 05/18/21 16:28: POC Glucose 289 H 05/18/21 20:31: POC Glucose 296 H 05/19/21 06:10: Sodium 137, Potassium 4.1, Chloride 105, Carbon Dioxide 24.0, Anion Gap 8, BUN 18, Creatinine 0.67, Estim Creat Clear Calc 47.78, Est GFR (MDRD) Af Amer 112, Est GFR (MDRD) Non-Af 93, BUN/Creatinine Ratio 26.9 H, Glucose 276 H, Calcium 8.6 05/19/21 06:14: POC Glucose 251 H 05/19/21 08:27: POC Glucose 264 H 05/19/21 11:19: POC Glucose 322 H Microbiology: Microbiology 05/18/21 12:30 Nasal Secretion SARS-CoV-2 Antigen (Rapid) - Final D/C Instructions Discharge Diet: Low fat / Low cholesterol and 1800 Calorie Control Diet Discharge Activity: Return to Normal Activity Meaningful Use Info Meaningful Use Diagnoses (Choose all that apply): None applicable CVA Therapy Assessed for PT,OT and/or ST?: Yes Ischemic Stroke Antithrombotic order at d/c?: Yes Dx of Atrial fib/flutter?: No Anticoagulant at discharge?: No Reason anticoagulant not ordered: Treatment not Indicated Statins at discharge?: Yes Primary Dx Acute Ischemic CVA?: Yes IV tPA ordered during stay?: No Reason IV t-PA not ordered: Treatment not Indicated Discharge Plan Admission Admit Date/Time: 05/18/21 12:04 Primary Reason for Your Visit: Right hand paresthesias Attending Provider: Alisha Vaz Primary Care Provider: Elbert Calvo Discharge Orders/Prescriptions Prescriptions: Continued fosinopril 10 MG tablet 10 mg PO DAILY RF: 0 albuterol sulfate 1 INHALER inhaler 1 puff inhalation PRN PRN (Reason: Sob &/Or Wheezing) RF: 0 amlodipine 5 mg Tablet 5 mg PO DAILY RF: 0 glipizide 10 mg tablet extended release 24hr 10 mg PO DAILY RF: 0 omeprazole 40 mg capsule,delayed release(DR/EC) 40 mg PO DAILY RF: 0 metformin 500 mg tablet extended release 24 hr 1,000 mg PO BID RF: 0 atorvastatin 80 mg Tablet 80 mg PO QHS 30 Days Qty: 30 RF: 0 aspirin 81 mg Tablet,Chewable 81 mg PO BREAKFAST 30 Days Qty: 30 RF: 0 clopidogrel [Plavix] 75 mg tablet 75 mg PO DAILY Qty: 30 RF: 0 Referrals / Follow Up: Ricardo Pacheco MD [STAFF PHYSICIAN] - See Referral Note (Is already scheduled for June) Elbert Calvo MD [Primary Care Provider] - In 1 Week Disposition Disposition (needs filled in before D/C Order can be placed): Home, Self Care Charges/Coding Visit Charges Inpatient E&M: 99194 Disch Hosp
--- NOTE | 2021-05-19 13:37 | PCM.DC ---
Discharge Instructions Diet Discharge Diet: Low fat / Low cholesterol and 1800 Calorie Control Diet Follow Up Care Test Results: Test results from this visit will be discussed in further detail at your follow-up appointment, if applicable. Discharge Plan Admission Admit Date/Time: 05/18/21 12:04 Primary Reason for Your Visit: Right hand paresthesias Attending Provider: Alisha Vaz Primary Care Provider: Elbert Calvo Discharge Orders/Prescriptions Prescriptions: Continued fosinopril 10 MG tablet 10 mg PO DAILY RF: 0 albuterol sulfate 1 INHALER inhaler 1 puff inhalation PRN PRN (Reason: Sob &/Or Wheezing) RF: 0 amlodipine 5 mg Tablet 5 mg PO DAILY RF: 0 glipizide 10 mg tablet extended release 24hr 10 mg PO DAILY RF: 0 omeprazole 40 mg capsule,delayed release(DR/EC) 40 mg PO DAILY RF: 0 metformin 500 mg tablet extended release 24 hr 1,000 mg PO BID RF: 0 atorvastatin 80 mg Tablet 80 mg PO QHS 30 Days Qty: 30 RF: 0 aspirin 81 mg Tablet,Chewable 81 mg PO BREAKFAST 30 Days Qty: 30 RF: 0 clopidogrel [Plavix] 75 mg tablet 75 mg PO DAILY Qty: 30 RF: 0 Referrals / Follow Up: Ricardo Pacheco MD [STAFF PHYSICIAN] - See Referral Note (Is already scheduled for June) Elbert Calvo MD [Primary Care Provider] - In 1 Week Disposition Disposition (needs filled in before D/C Order can be placed): Home, Self Care
--- NOTE | 2021-05-19 13:43 | CASEMGMT ---
GENET OBREGON in to complete CESPEDES form with patient. GENET OBREGON explained CESPEDES form to patient, patient voiced understanding. Patient signed CESPEDES form and original filed in chart. Patient provided with copy of signed CESPEDES form. Patient had no further questions or concerns at this time.
--- NOTE | 2021-05-19 14:05 | CASEMGMT ---
Pt states no need for any further therapy at discharge. MRI negative and pt ready for d/c. Mumtaz DE LEÓN CM
== END 2021-05-19 12:18 | disposition home or self-care (01) ==
LOC: ED 10:06 → PCU 12:35
PROVIDERS: Admitting Provider Internal Medicine; Emergency Provider Emergency Medicine; PCP Internal Medicine; Visit Provider Internal Medicine
DX: R20.2 Paresthesia of skin (principal); E78.5 Hyperlipidemia, unspecified; K21.9 Gastro-esophageal reflux disease without esophagitis; I10 Essential (primary) hypertension; K44.9 Diaphragmatic hernia without obstruction or gangrene; R29.701 NIHSS score 1; J44.9 Chronic obstructive pulmonary disease, unspecified; Z79.02 Long term (current) use of antithrombotics/antiplatelets; Z79.84 Long term (current) use of oral hypoglycemic drugs; Z79.82 Long term (current) use of aspirin; Z79.899 Other long term (current) drug therapy; R47.89 Other speech disturbances; R20.0 Anesthesia of skin; Z91.19 Patient's noncompliance with other medical treatment and regimen; E11.65 Type 2 diabetes mellitus with hyperglycemia; J32.9 Chronic sinusitis, unspecified; I69.354 Hemiplegia and hemiparesis following cerebral infarction affecting left non-dominant side
CPT/HCPCS: 36415; 70450; 70496; 70498; 70551; 71045; 80048; 82962; 84484; 85025; 85610; 85730; 87426; 93005; 94762; 96372; 97162; 97166; 99218; 99285; Q9967; A4216; G0378

== ENCOUNTER 2022-03-23 12:37 | Inpatient (IN) | payer MEDICARE, SELFPAY ==
[2022-03-23] VITALS (11 sets, daily range): BP systolic 135–178; BP diastolic 59–85; PULSE 61–81; RESP 15–18; TEMP 36.7; O2SAT 96–100; BMI 21.6; BMI 21.9
--- NOTE | 2022-03-23 13:07 | EX.ED.DYSGE1 ---
HPI History of Present Illness Chief Complaint: Shortness of Breath Informant: patient Onset/Context/Timing Onset: Yesterday Context: Gradual Onset Timing: Continuous Quality: sharp Location: right chest Current Severity: Mild Maximum Severity: Moderate Worsened by: breathing, moving Relieved by: resting Associated Symptoms Associated Symptoms: mild sob Narrative Narrative: Chest pain or shortness of breath that started yesterday after she had a right lung biopsy of the nodule at [facility]. She has a history of pancreatic cancer, but they needed to test a nodule in her lung to see if it is a metastasis prior to performing a Whipple procedure. She had a chest x-ray already after the symptoms started, showing a pneumothorax. She does not want to go to [facility] for thoracostomy/treatment because of distance so she came here. [facility] Medical History Asthma Cervical spinal stenosis COPD (chronic obstructive pulmonary disease) Diabetes Diabetes Headache Hiatal hernia History of diverticulitis History of pancreatitis Hypertension Paresthesia of right upper extremity Home Medications albuterol sulfate 90 mcg/actuation aerosol inhaler 1 puff inhalation PRN PRN Sob &/Or Wheezing 10/08/19 [History Last Taken 04/19/21] fosinopril 10 mg tablet 10 mg PO DAILY BP 10/08/19 [History Last Taken 05/17/21 09:00] amlodipine 5 mg tablet 5 mg PO DAILY bp 04/27/21 [History Last Taken 05/17/21 09:00] glipizide 10 mg tablet, extended release 24 hr 10 mg PO DAILY DM 04/27/21 [History Last Taken 05/17/21 09:00] metformin 500 mg tablet,extended release 24 hr 1,000 mg PO BID DM 04/27/21 [History Last Taken 05/17/21 21:00] omeprazole 40 mg capsule,delayed release 40 mg PO DAILY GERD 04/27/21 [History Last Taken 05/17/21 09:00] aspirin 81 mg chewable tablet 81 mg PO BREAKFAST 30 days #30 tabs 04/28/21 [Rx Last Taken 05/17/21 09:00] atorvastatin 80 mg tablet 80 mg PO QHS 30 days #30 tabs 04/28/21 [Rx Last Taken 05/17/21 21:00] Allergy/AdvReac Type Severity Reaction Status Date / Time No Known Allergies Allergy Verified 03/23/22 12:37 Family History Father CVA (cerebral vascular accident) Brother CVA (cerebral vascular accident) Other Asthma Surgical History History of cholecystectomy History of esophagogastroduodenoscopy (EGD) History of tubal ligation Social History Smoking Status: Never smoker alcohol intake: current details: infrequent substance use type: does not use ROS ROS ED Constitutional Constitutional ED: Denies chills or fever(s) Eyes Eyes: Denies change in vision or diplopia ENT ENT ED: Denies rhinorrhea or sore throat Cardiovascular Cardiovascular: Reports chest pain; Denies palpitations Respiratory/Chest Respiratory/Chest: Reports dyspnea; Denies cough Genitourinary Genitourinary ED: Denies dysuria or hematuria Musculoskeletal Musculoskeletal: Denies back pain or neck pain Integumentary Denies abscess or rash Neurologic Neurologic: Denies headache(s), paresthesias or weakness Psychiatric Psychiatric: Denies anxiety or suicidal thoughts EXAM Physical Exam Const Vital Signs: 03/23/22 12:38 03/23/22 14:06 03/23/22 16:26 Temperature 98.0 F Temperature Source Temporal Pulse Rate 81 66 Pulse Rate [1] Pulse Rate [2] Pulse Rate [3] Respiratory Rate 16 Respiratory Rate [1] Respiratory Rate [2] Respiratory Rate [3] Respiratory Effort Normal Respiratory Depth Normal Respiratory Pattern Normal Blood Pressure 135/59 H 144/74 H Blood Pressure [1] Blood Pressure [2] Blood Pressure [3] Blood Pressure Mean 84 97 Pulse Ox 100 Oxygen Delivery Method Room Air Room Air Oxygen Delivery Method [1] Oxygen Delivery Method [2] Oxygen Delivery Method [3] Oxygen Flow Rate (L/min) Oxygen Flow Rate (L/min) [1] Oxygen Flow Rate (L/min) [2] Oxygen Flow Rate (L/min) [3] 03/23/22 17:24 03/23/22 17:34 03/23/22 17:50 Temperature Temperature Source Pulse Rate 66 Pulse Rate [1] 73 Pulse Rate [2] 68 Pulse Rate [3] 67 Respiratory Rate 15 Respiratory Rate [1] 18 Respiratory Rate [2] 18 Respiratory Rate [3] 17 Respiratory Effort Respiratory Depth Respiratory Pattern Blood Pressure 148/77 H Blood Pressure [1] 159/85 H Blood Pressure [2] 155/76 H Blood Pressure [3] 146/69 H Blood Pressure Mean Pulse Ox 97 Oxygen Delivery Method Nasal Cannula Nasal Cannula Oxygen Delivery Method [1] Nasal Cannula Oxygen Delivery Method [2] Nasal Cannula Oxygen Delivery Method [3] Nasal Cannula Oxygen Flow Rate (L/min) 2 2 Oxygen Flow Rate (L/min) [1] 2 Oxygen Flow Rate (L/min) [2] 2 Oxygen Flow Rate (L/min) [3] 2 03/23/22 17:55 03/23/22 18:00 Temperature Temperature Source Pulse Rate Pulse Rate [1] Pulse Rate [2] Pulse Rate [3] Respiratory Rate Respiratory Rate [1] Respiratory Rate [2] Respiratory Rate [3] Respiratory Effort Respiratory Depth Respiratory Pattern Blood Pressure Blood Pressure [1] Blood Pressure [2] Blood Pressure [3] Blood Pressure Mean Pulse Ox Oxygen Delivery Method Nasal Cannula Room Air Oxygen Delivery Method [1] Oxygen Delivery Method [2] Oxygen Delivery Method [3] Oxygen Flow Rate (L/min) Oxygen Flow Rate (L/min) [1] Oxygen Flow Rate (L/min) [2] Oxygen Flow Rate (L/min) [3] Positive well nourished and well developed General Appearance ED: well developed and NAD HEENT Reports moist mucous membranes normocephalic and atraumatic Eyes PERRL and EOMs intact bilaterally Neck full ROM and supple Chest Wall Chest Narrative: Mediport right anterior chest Resp normal respiratory effort Resp Narrative: Decreased breath sounds on the right, otherwise clear. Trachea midline. No respiratory distress. Cardio regular rate, regular rhythm and no murmurs Back/Spine no CVA tenderness General Back: other FROM Extremity normal to inspection General Extremety ED: Negative for edema, pulses abnormal or tenderness General Extremity: Negative for edema or pulses abnormal Neuro oriented x3, CN's II-XII intact bilaterally and no sensory deficits noted Sensorium / Orientation: awake and alert Motor Exam: strength 5/5 throughout Skin no rashes or lesions noted and no wounds MDM MDM MDM Narrative Medical decision making narrative: I did confirm that she has a pneumothorax, 1 view chest x-ray to my interpretation shows a 10-15% pneumothorax on the right side, the radiology in agreement. Patient requested sedation which was done see the procedure note. On reevaluation after the chest x-ray was done after the procedure, 1 view on my interpretation, it is reinflated and the chest tube is in good place. She is in a lot of pain afterwards and does not want a go home. Discussed with Dr. Guevara for admission, she was given morphine. Radiography Chest X-Ray - ED: 1 View, Read by ED Physician and - (small R pneumothorax) Diagnostic Testing: Clinical Impression(s) from Imaging Studies Chest X-Ray 03/23/22 13:10 IMPRESSION: 5-10% right pneumothorax with nodular density in the right lower lobe. Electronically Signed: Milan Orozco MD at 13:49 EDT , Chest X-Ray 03/23/22 17:55 IMPRESSION: There is no pneumothorax. Electronically Signed: Emery Sharpe MD at 18:16 EDT , Procedures Procedural Sedation 1 (Initial Baseline): Consent Signed: Yes Any Problems With Anesthesia: No You/Your family experience fever (hyperthermia) w/anesthesia: No Sedation medication: Versed Dose: 4 Route: IV Total Moderate Sedation Units: 15 Mallampati Score: Class II ASA Classification: I Comment:: Tolerated well no complications, uneventful recovery. End-tidal CO2 monitoring, 2 L oxygen nasal cannula, monitor throughout procedure. Other Procedures Procedure(s): Thoracostomy with Heimlich valve: After informed consent and procedural sedation, injected 1 cc of lidocaine with epinephrine in the right second intercostal space just above the third rib after chlorhexidine sterile prep and drape, medial to her med port and line which was noted on the chest x-ray. Via Seldinger technique using arrow pneumothorax kit, I aspirated air as I inserted the pneumothorax tube over the needle withdrawing the needle, secured it to the Heimlich valve using the stopcock, I applied vacuum from the wall to the Heimlich valve for 30 seconds. Sutured intact to the chest wall with a single 3-0 silk suture, chest x-ray shows good pneumothorax evacuation and lung reinflation, tolerated well no complications. Discharge Plan Triage Chief Complaint: Shortness of Breath ED Provider: Vinicio Mays Dx/Rx/DC Orders Clinical Impression: Pneumothorax of right lung after biopsy Prescriptions: No Action fosinopril 10 MG tablet 10 mg PO DAILY albuterol sulfate 1 INHALER inhaler 1 puff inhalation PRN PRN (Reason: Sob &/Or Wheezing) amlodipine 5 mg Tablet 5 mg PO DAILY glipizide 10 mg tablet extended release 24hr 10 mg PO DAILY Label Comments: Take 1 tablet by mouth daily with breakfast. omeprazole 40 mg capsule,delayed release(DR/EC) 40 mg PO DAILY Label Comments: Take 1 capsule by mouth once daily. metformin 500 mg tablet extended release 24 hr 1,000 mg PO BID Label Comments: TAKE 2 TABLETS BY MOUTH TWICE DAILY WITH MEALS atorvastatin 80 mg Tablet 80 mg PO QHS 30 Days Qty: 30 0RF aspirin 81 mg Tablet,Chewable 81 mg PO BREAKFAST 30 Days Qty: 30 0RF Primary Care Provider: Elbert Calvo Referrals: Elbert Calvo MD [Primary Care Provider] - Disposition Disposition: Acute Care Hospital [facility]
--- NOTE | 2022-03-23 13:10 | RAD_ITS ---
STUDY: X-RAY CHEST REASON FOR EXAM: Female, 71 years old. Right chest pain/pneumothorax s/p biopsy TECHNIQUE: Single AP portable view of the chest. COMPARISON: Comparison is made with prior study dated 05/18/2021. FINDINGS: A right-sided portacatheter is seen with the tip in the midportion of the superior vena cava. There is evidence of a 5-10% right-sided pneumothorax. There is a 2.2 cm nodular density in the right lung base. Mild residual nodular densities in the left midlung. These have decreased in size as compared to prior study. Normal size heart. A left-sided dual-chamber pacemaker is seen. Normal mediastinum and baldev. Normal visualized pulmonary arteries. There is atherosclerotic calcification of the aortic arch with tortuosity. There are degenerative changes of the visualized thoracic spine. Normal visualized ribs, clavicles, and shoulders. Hiatal hernia. RAD/Chest 1 View (Portable) IMPRESSION: 5-10% right pneumothorax with nodular density in the right lower lobe. Electronically Signed: Milan Orozco MD at 13:49 EDT ,
[2022-03-23] MEDS: Lidocaine 1% (20 ml mdv) 20 ML Vial 10 ML INFILT (17:33)
[2022-03-23] MEDS: Midazolam 5 MG/ML Syringe 4 MG IV (17:33)
[2022-03-23] MEDS: 0.9% Normal Saline 1,000 ML 100 ML IV (17:33)
--- NOTE | 2022-03-23 17:55 | RAD_ITS ---
STUDY: X-RAY CHEST REASON FOR EXAM: Female, 71 years old. chest tube placement TECHNIQUE: XR Chest 1 View COMPARISON: Study done earlier today. FINDINGS: There is a right Port-A-Cath and/or mediport in place. The tip is in the superior vena cava. There is a left sided pacemaker batterypack. Right chest tube in place. Stable nodule in the right midlung. There is no pneumothorax. Normal size heart. Normal mediastinum and baldev. Normal visualized pulmonary arteries. There is atherosclerotic calcification of the aortic arch with tortuosity. There are diffuse degenerative changes of the visualized thoracic spine. There is degenerative osteoarthritis of the bilateral shoulders. There is no demonstrated abnormality of the visualized soft tissue structures of the upper abdomen. RAD/Chest 1 View (Portable) IMPRESSION: There is no pneumothorax. Electronically Signed: Emery Sharpe MD at 18:16 EDT ,
[2022-03-23] MEDS: Morphine 4 MG/ML Syringe IV (18:11)
[2022-03-23] MEDS: Lactated Ringers 1,000 ML 75 ML IV (19:09)
[2022-03-23] MEDS: Insulin Glargine-YFGN 100 UNIT/ML Pen 16 UNIT SC (22:26)
[2022-03-23] MEDS: Gabapentin 100 MG Capsule PO (22:26)
[2022-03-23] MEDS: HYDROmorphone 0.5 MG/0.5 ML SYRINGE IV (22:33)
[2022-03-23 23:20] LABS: Bedside Glucose 162 mg/dL (74-106)
[2022-03-24] VITALS (12 sets, daily range): BP systolic 113–161; BP diastolic 63–81; PULSE 60–90; RESP 12–18; TEMP 36.6–37; O2SAT 2–100
[2022-03-24] MEDS: Lactated Ringers 1,000 ML 75 ML IV ×2 (05:00→16:50)
[2022-03-24] MEDS: HYDROmorphone 0.5 MG/0.5 ML SYRINGE IV ×2 (05:00→20:14)
--- NOTE | 2022-03-24 06:00 | RAD_ITS ---
STUDY: X-RAY CHEST REASON FOR EXAM: Female, 71 years old. pneumothorax TECHNIQUE: AP portable. 5:33 AM. COMPARISON: 03/23/2022. FINDINGS: LINES/DEVICES: Indwelling central venous catheter, right chest tube unchanged. Pacemaker leads unchanged. LUNGS: Small right apical pneumothorax. Minimal opacity in the right lung base is slightly decreased. MEDIASTINUM: Unremarkable. CARDIAC SILHOUETTE: Not enlarged. BONES AND SOFT TISSUES: No acute abnormalities. RAD/Chest 1 View IMPRESSION: Small right apical pneumothorax. Chest tube in place. Electronically Signed: Miriam Verdugo MD at 6:36 EDT ,
[2022-03-24] MEDS: Pantoprazole Sodium 40 MG Tablet PO (08:10)
[2022-03-24 08:11] LABS: Bedside Glucose 136 mg/dL (74-106)
[2022-03-24] MEDS: Insulin Lispro 100 UNIT/ML INSULN.PEN 10 UNIT SC ×2 (08:12→16:51)
--- NOTE | 2022-03-24 10:30 | HP.PCM_ITS ---
History and Physical Date of Admission: 03/23/22 Date of H&P is 03/24/2022 Oncologic problem(s): 1) Adenocarcinoma of the pancreas. ? 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 She presents with right sided pneumothorax. ? Previous imaging in July 2021 with chest x ray and follow up CT scan of chest on 08/02/2021 showed???multiple pulmonary nodules. Patient underwent imaging guided lung nodule??biopsy on 08/03/2021:?core biopsy of left lung - ?surgical path showed?organizing necrotizing granulomatous inflammation. Negative for malignancy. On 08/10 a bronchoalveolar lavage of right middle lobe revealed bronchial cells, pulmonary macrophages and mucous, negative for malignant cells. ?? ? Patient had a CT scan of the abdomen pelvis on 09/18/2021 to evaluate lower abdominal pain. That study identified no mass in the liver. Bile ducts appeared normal. There was evidence of prior cholecystectomy. There was a suggestion of numerous subcentimeter hypodense nodules scattered throughout the spleen without splenomegaly. Significantly in the pancreas there was a suggestion of a 2.4 cm proximal pancreatic body mass with atrophy of the mid to distal pancreatic body and tail. There were no adrenal masses noted. Kidneys were symmetric nephrograms without evidence of hydronephrosis. There was a subcentimeter hypodense too small to characterize left renal lesion though statistically likely a cyst. It was a moderately large hiatal hernia. No dilation or wall thickening. No abdominal pelvic lymphadenopathy was observed. There was no ascites or mass. No retroperitoneal mass. In the lower thorax, bilateral bibasilar pulmonary nodules the majority of which appeared stable in size when compared to previous CT scan dated 08/02/[address] of the abdomen pelvis dated 07/15/2019. ? Referred to Dr. Amado (general surgery) 09/25/2021. ? Referred for EGD/EUS which she underwent on 10/02/2021. An irregular mass was identified in the pancreatic body. It was hypoechoic. It measured 20 mm x 13 mm in maximal cross-sectional diameter. Outer margins were irregular. An intact surface was observed between the mass and the splenic vein suggesting a lack of invasion. The remainder the pancreas demonstrated the endosonographic appearance of parenchyma and upstream pancreatic duct indicated duct dilation. FNA was performed. Four passes were made with a 22-gauge needle. The celiac trunk was endosonographically normal. Patient underwent right sided lung nodule biopsy and sustained pneumothorax. CT placed in [facility] ED. ? PAST MEDICAL HISTORY ? Asthma ? ? Cerebrovascular accident (CVA) due to embolism of right middle cerebral artery (HCC) 05/09/2021 ? CHR OBSTR ASTH W COPD W/O STAT ASTH 12/04/2002 ? Chronic obstructive airway disease with asthma (HCC) 12/04/2002 ? Diverticulitis 2012 ? x 3 ? Endometrial cystic hyperplasia 07/2019 ? Essential hypertension 06/12/2019 ? Gallstone pancreatitis 2013 ? GERD (gastroesophageal reflux disease) 12/07/2015 ? decades ? Large hiatal hernia 07/19/2019 ? Multiple pulmonary nodules 08/24/2021 ? Osteopenia of neck of right femur 09/01/2019 ? Pancreatic cancer (HCC) 2021 ? Pancreatitis 2013 ? Pressure ulcer of left foot 03/2017 ? Pure hypercholesterolemia 05/09/2021 ? S/P placement of cardiac pacemaker Medtronic dual chamber RV lead in high septum 09/04/21 [facility] Dr Juno Blunt 09/05/2021 ? Spinal stenosis in cervical region 12/07/2015 ? Uncontrolled type 2 diabetes mellitus with hyperglycemia (HCC) PAST SURGICAL HISTORY COLONOSCOPY FLX DX W/COLLJ SPEC WHEN PFRMD ? 08/25/2019 ? Colonoscopy ? ENDOMETRIAL BX W/WO ENDOCERVIX BX W/O DILAT SPX ? 08/21/2019 ? ESOPHAGOGASTRODUODENOSCOPY TRANSORAL DIAGNOSTIC ? 08/25/2019 ? EGD ? F BRONCHOSCOPY FLEX WITH LAVAGE ALVEOLAR ? 08/10/2021 ? HYSTEROSCOPY ? 10/15/2019 ? D&C ? LAPAROSCOPY SURG CHOLECYSTECTOMY ? 2013 ? Cholecystectomy, lap ? PACEMAKER ? 09/04/2021 ? TUBAL LIGATION HX ? 1987 MEDICATIONS: ? Insulin [place], Disposable, (PEN NEEDLE) 32 gauge x Use to inject insulin up to 8 times per day. ? oxyCODONE-acetaminophen (PERCOCET) 5-325 mg tablet Take 1 tablet by mouth every 6 hours as needed for pain. ? blood sugar diagnostic (BLOOD GLUCOSE TEST) test strip Test blood sugar(s) 2 times daily. Dx: Type 2 DM - Uncontrolled E11.65 Insulin: No ? insulin glargine (LANTUS SOLOSTAR U-100 INSULIN) 100 unit/mL (3 mL) Inject 26 Units subcutaneously daily at bedtime. ? insulin lispro (HUMALOG KWIKPEN) 100 unit/mL Inject 14 Units subcutaneously three times daily before meals. Add insulin per sliding scale. 200-299=add 4 units. 300-399=add 6 units. 400 or more add 8 units. ? lidocaine-prilocaine (EMLA) 2.5-2.5 % cream Apply to port site 60 minutes prior to accessing. ? ibuprofen (MOTRIN) 200 mg tablet Take 200 mg by mouth every 8 hours as needed. ? fosinopril sodium (MONOPRIL) 40 mg tablet Take 1 tablet by mouth once daily. ? montelukast (SINGULAIR) 10 mg tablet Take 1 tablet by mouth daily at bedtime. ? cetirizine (ALLERGY RELIEF, CETIRIZINE,) 10 mg tablet Take 1 tablet by mouth once daily. ? acetaminophen (TYLENOL) 325 mg tablet Take 2 tablets by mouth every 6 hours as needed for pain. ? esomeprazole (NEXIUM) 40 mg capsule Take 1 capsule by mouth daily before breakfast. 1/2 hr before meal. ? aspirin, enteric coated (ASPIRIN, ENTERIC COATED) 81 mg EC tablet Take 1 tablet by mouth once daily. ? Lancets lancets Test blood sugar(s) 2 times daily. Dx: Type 2 DM - Uncontrolled E11.65 Insulin: No ? albuterol HFA (PROVENTIL HFA, VENTOLIN HFA) 90 mcg/actuation inhaler ? ROS: Constitutional: Denies episodes of fever and night sweats. Neuro: Denies ASHTON, vertigo, dizziness and imbalance. HEENT: No recent change in voice, vision or hearing. Resp: Denies cough, wheeze and hemoptysis. Denies shortness of breath at rest. Denies BERNABE. CVS: Denies exertional chest pain, PND, orthopnea and LE edema. GI: See above. : Denies dysuria or gross hematuria. No symptoms of bladder outlet obstruction. Endo: Denies hot flashes. Denies polyuria and polydipsia. Denies heat and cold intolerance. Musculoskeletal: Denies bone, back, joint and muscular pain. Derm: Denies rash. Denies jaundice and diffuse pruritis. Heme: Denies unusual bleeding and unexplained bruising. Psych: Normal mood. ? Family history: 1) Sister-- of pancreas cancer age 77. 2) Brother-- of pancreas cancer age 71 3) Mother-- of metastatic melanoma age 93. ? PHYSICAL EXAM: Vitals: Blood pressure 126/74, pulse 86, temperature 36.1 ?C (97 ?F), temperature source Temporal, weight 59 kg (130 lb). Well-appearing and in no acute distress. EYES: Sclerae are anicteric bilaterally. LYMPHATIC: There is no palpable cervical, supraclavicular or axillary denopathy. RESPIRATORY: Inspiratory breath sounds are of normal intensity in all tate. No rales, wheezes or rhonchi. Right sided catheter in place and upper right chest port in place CARDIOVASCULAR: Rhythm is regular. ABDOMEN: The abdomen is nondistended. Mild tenderness right upper abdomen. Tenderness with some numbness in the lower abdomen. Extremities: No swelling or edema. SKIN: No jaundice or rash. No petechiae. NEUROLOGIC: tank farm gauger II-XII are grossly intact. No focal motor weakness. ? ? ASSESSMENT/PLAN: (C25.1) Malignant neoplasm of body of pancreas (HCC) (primary encounter diagnosis) Iatrogenic penumothorax of right Plan: supportive care check CXR, if OK, d/c catheter
--- NOTE | 2022-03-24 10:44 | RAD_ITS ---
STUDY: X-RAY CHEST REASON FOR EXAM: Female, 71 years old. Worsening shortness of breath, chest tube removal TECHNIQUE: Single AP portable view of the chest. COMPARISON: Earlier today FINDINGS: Stable appearance of the left-sided pacemaker, and right subclavian port. A small caliber right-sided chest tube has been removed. Previously noted right pneumothorax is increased slightly in size since the previous study. Affects approximately 10% of the right hemithorax without mediastinal shift. There is no superimposed infiltrate or effusion. Normal size heart. Normal mediastinum and baldev. Normal visualized pulmonary arteries. There is atherosclerotic calcification of the aortic arch with tortuosity. Normal visualized thoracic spine. Normal visualized ribs, clavicles, and shoulders. There is no demonstrated abnormality of the visualized soft tissue structures of the upper abdomen. RAD/Chest 1 View IMPRESSION: Status post small-caliber right-sided chest tube removal. Previously noted small right pneumothorax is increased slightly in size since the previous study. No mediastinal shift. No superimposed infiltrate or effusion Stable appearance of the right subclavian port and left subclavian pacemaker Electronically Signed: Brijesh Swann MD at 11:32 EDT ,
--- NOTE | 2022-03-24 10:50 | NURSING ---
to x ray via w/ch
[2022-03-24 11:30] LABS: Bedside Glucose 92 mg/dL (74-106)
[2022-03-24] MEDS: Midazolam 2 MG/2 ML Syringe IV ×2 (12:17→12:33)
[2022-03-24] MEDS: fentaNYL 100 MCG/2 ML Ampul IV (12:25)
--- NOTE | 2022-03-24 12:36 | RAD_ITS ---
STUDY: X-RAY CHEST REASON FOR EXAM: Female, 71 years old. Noted pneumothorax, chest tube placement TECHNIQUE: Single AP portable view of the chest. COMPARISON: Earlier today FINDINGS: A small caliber right-sided chest tube has been placed since the previous study. Previously noted right-sided pneumothorax has resolved. Stable appearance of the left-sided pacemaker and right subclavian port. The lungs are clear and expanded. There is no demonstrated pleural abnormality. Normal size heart. Normal mediastinum and baldev. Normal visualized pulmonary arteries. Normal visualized aortic arch and descending thoracic aorta. There are diffuse degenerative changes of the visualized thoracic spine. There is degenerative osteoarthritis of the bilateral shoulders. There is no demonstrated abnormality of the visualized soft tissue structures of the upper abdomen. RAD/Chest 1 View (Portable) IMPRESSION: Previously noted right-sided pneumothorax has resolved after placement of a small-caliber right-sided chest tube. No acute pulmonary process Electronically Signed: Brijesh Swann MD at 13:53 EDT ,
--- NOTE | 2022-03-24 13:26 | NURSING ---
@ 1215 dr kunz at bedside, baseline b/p taken (see vitals)-pt placed on 2l n/c o2-pt given total of 3 mg versed, 50 mcg of fentanyl-chest tube placed right upper-heimlich valve type per dr kunz- (close to port)-portable CXR taken-pox never dropped below 95% during procedure-@ 131pt a&ox3, talking w/ friend and glass sagger and ordering her lunch
--- NOTE | 2022-03-24 14:05 | PCM.PN.BLA ---
Progress Note patient still with pneumothorax after d/c pleural catheter will therefore place another
[2022-03-24 17:21] LABS: Bedside Glucose 249 mg/dL (74-106)
--- NOTE | 2022-03-24 18:21 | PCM.OPRPT ---
Report of Operation Date of Procedure: 03/24/22 Pre-Operative Diagnosis: right pneumothorax Post-Operative Diagnosis: same as above Surgery/Procedure Performed:: placement of right pleural catheter Surgeon: Brenda Guevara Type of Anesthesia: IV Sedation and Local Anesthesiologist: Brenda Guevara Specimen's removed: none Estimated Blood Loss (mL): minimal Fluids Replaced: none Description of Procedure: After informed consent was obtained, the patient was in her hospital bed Appropriate time out protocol was followed. She was placed in the supine position. The patient was then placed under anesthesia. IV conscious sedation was given Patient is an ASA II. IV versed 3 mg and 50 micrograms fentanyl was used. Anesthesia start time: 12:13 Anesthesia stop time: 12:45 . The upper rightt chest was then prepped with a sterile surgical skin preparation. Sterile surgical drapes were placed. This skin and subcutaneous tissues were then widely infiltrated with the local anesthetic at the previous site of pleural catheter placement. The pleural catheter with trocar was then inserted into the incisional site and directed into the pleural cavity. Aspiration of air was obtained. The catheter was then threaded over the trocar and directed into the pleural space. It was then connected to the Heimlich valve. The catheter was then sutured into place. Sterile dressing was applied. Patient tolerated procedure well. Procedure Start Time: 13:13 Procedure Stop Time: 13:45 Complications none noted Admit VTE Documentation VTE Present on Admission: Yes VTE Mechan Device Prophylaxis: SCD's
[2022-03-24] MEDS: Gabapentin 100 MG Capsule PO (20:13)
[2022-03-24] MEDS: 0.9% Saline Lock 10 ML Syringe IV (20:14)
[2022-03-24] MEDS: Insulin Glargine-YFGN 100 UNIT/ML Pen 16 UNIT SC (20:18)
[2022-03-24 21:21] LABS: Bedside Glucose 252 mg/dL (74-106)
[2022-03-25 03:10] VITALS: BP 113/66; PULSE 60; RESP 16; TEMP 36.6; O2SAT 100
[2022-03-25] MEDS: Lactated Ringers 1,000 ML 75 ML IV (05:32)
[2022-03-25 07:37] VITALS: O2SAT 96
[2022-03-25 08:31] LABS: Bedside Glucose 131 mg/dL (74-106)
[2022-03-25] MEDS: Pantoprazole Sodium 40 MG Tablet PO (08:47)
[2022-03-25] MEDS: Insulin Lispro 100 UNIT/ML INSULN.PEN 10 UNIT SC (08:47)
--- NOTE | 2022-03-25 09:36 | RAD_ITS ---
STUDY: X-RAY CHEST REASON FOR EXAM: Female, 71 years old. pneumothorax TECHNIQUE: Single AP portable view of the chest. COMPARISON: 03/24/2022 FINDINGS: Right internal jugular chest port which is unchanged. Left subclavian pacemaker which is unchanged. Right-sided small bore thoracostomy tube which is unchanged with no change in the small pneumothorax. The lungs are clear and expanded. Normal size heart. Normal mediastinum and baldev. Normal visualized pulmonary arteries. Normal visualized aortic arch and descending thoracic aorta. Normal visualized thoracic spine. Normal visualized ribs, clavicles, and shoulders. There is no demonstrated abnormality of the visualized soft tissue structures of the upper abdomen. RAD/Chest 1 View (Portable) IMPRESSION: No change in small right pneumothorax. Electronically Signed: Daniel Lovell MD at 6:58 EDT ,
[2022-03-25 10:40] VITALS: BP 137/67; PULSE 71; RESP 16; TEMP 36.8; O2SAT 100
--- NOTE | 2022-03-25 11:21 | DCINST_ITS ---
Discharge Instructions Diet Discharge Diet: No restrictions Activity Discharge Activity: Return to Normal Activity (sponge bathe only) Follow Up Care Test Results: Test results from this visit will be discussed in further detail at your follow- up appointment, if applicable. Discharge Plan Admission Admit Date/Time: 03/24/22 15:41 Attending Provider: Brenda Guevara Primary Care Provider: Elbert Calvo Instructions Additional Instructions / Restrictions: Sponge bathe only The office will call you to set up a follow up appointment If you have any questions, please call Discharge Orders/Prescriptions Prescriptions: New oxycodone 5 mg capsule 5 mg PO Q8H PRN (Reason: pain) 8 Days Qty: 24 0RF No Action albuterol sulfate 1 INHALER inhaler 1 puff inhalation PRN PRN (Reason: Sob &/Or Wheezing) oxycodone-acetaminophen 5-325 mg tablet 1 tab PO TID PRN PRN (Reason: Pain) Label Comments: Take 1 tablet by mouth every 6 hours as needed for pain for up to 5 days. esomeprazole magnesium 40 mg capsule,delayed release(DR/EC) 40 cap PO DAILY Label Comments: Take 1 capsule by mouth daily before breakfast. 1/2 hr before meal. gabapentin 100 mg capsule 100 cap PO QHS Label Comments: Take 1 capsule by mouth once daily for 30 days. insulin lispro 100 unit/mL insulin pen 10 unit SUBCUT TIDCM insulin glargine [Lantus Solostar U-100 Insulin] 100 unit/mL (3 mL) insulin pen 16 ea SUBCUT QHS aspirin 81 mg tablet,chewable 81 mg PO BREAKFAST Referrals / Follow Up: Elbert Calvo MD [Primary Care Provider] - Disposition Discharge Orders: Discharge Patient (Routine); Ordered 03/25/22 Ordered By: Dr. Brenda Guevara
[2022-03-25 11:40] LABS: Bedside Glucose 239 mg/dL (74-106)
== END 2022-03-25 12:09 | disposition home or self-care (01) | DRG 200 ==
LOC: ED 18:42 → MS3 19:10
PROVIDERS: Admitting Provider Surgery; Emergency Provider Emergency Medicine; PCP Internal Medicine; Visit Provider Surgery
DX: J95.811 Postprocedural pneumothorax (principal); C25.1 Malignant neoplasm of body of pancreas; E11.9 Type 2 diabetes mellitus without complications; K21.9 Gastro-esophageal reflux disease without esophagitis; E78.00 Pure hypercholesterolemia, unspecified; J44.9 Chronic obstructive pulmonary disease, unspecified; Z79.4 Long term (current) use of insulin; I10 Essential (primary) hypertension; R91.1 Solitary pulmonary nodule; Z95.0 Presence of cardiac pacemaker; Z79.899 Other long term (current) drug therapy; Z79.84 Long term (current) use of oral hypoglycemic drugs; Z86.73 Personal history of transient ischemic attack (TIA), and cerebral infarction without residual deficits; Z80.0 Family history of malignant neoplasm of digestive organs
CPT/HCPCS: 36591; 71045; 82962; 99156; 99251; 99284; J7030; J7120; A4216; G0463

== ENCOUNTER 2022-04-17 12:45 | Observation (INO) | payer MEDICARE, SELFPAY ==
[2022-04-17] VITALS (8 sets, daily range): BP systolic 129–146; BP diastolic 58–119; PULSE 62–81; RESP 12–18; TEMP 36.1–37; O2SAT 99–100; BMI 21.6; BMI 21.2
--- NOTE | 2022-04-17 13:21 | EKG12_ITS ---
Test Reason : Blood Pressure : / mmHG Vent. Rate : 078 BPM Atrial Rate : 078 BPM P-R Int : 124 ms QRS Dur : 088 ms QT Int : 380 ms P-R-T Axes : 000 068 064 degrees QTc Int : 433 ms Normal sinus rhythm Normal ECG Confirmed by LIZZIE GRIDER MD ([id number]), editor continuity and script JUSTIN PULIDO ([id number]) on 04/19/2022 12:56:02 PM Referred By: Davon Confirmed By:LIZZIE GRIDER MD
[2022-04-17 13:50] LABS: Absolute Lymphocyte Count 1.82 X10^3/uL (0.83-4.51); Absolute Neutrophil Count 3.8 X10^3/uL (2.0-7.7); Basophil# 0.04 X10^3/uL; Basophil% 0.6 % (0-1); Hematocrit 31.6 % (37-47); Hemoglobin 9.6 g/dL (12.0-15.0); Lymphocyte # 1.82 X10^3/ul (0.83-4.51); Lymphocyte % 27.6 % (19-41); Mean Corp Hgb Conc 30.4 g/dL (32-36); Mean Corpuscular Hgb 24.4 pg (27.0-32.0); Mean Corpuscular Volume 80.2 fL (81-99); Mean Platelet Vol. 10.4 fl (6.2-12.0); Monocyte# 0.72 X10^3/uL; Monocyte% 10.9 % (0-10); NRBC Flagged by Analyzer 0 % (0-5); Neutrophil # 3.77 X10^3/uL (2.7-7.7); Neutrophil % 57.3 % (47-70); Platelet Count 250 K/mm3 (150-450); RBC Distribution Width SD 51.7 fl (35.1-43.9); Red Blood Count 3.94 M/mm3 (4.2-5.4); White Blood Count 6.6 K/mm3 (4.4-11.0)
--- NOTE | 2022-04-17 13:55 | EDS_ITS ---
HPI History of Present Illness Chief Complaint: Shortness of Breath Informant: patient Onset/Context/Timing Onset: Yesterday Timing: Waxes and wanes Narrative Narrative: Patient presents secondary to shortness of breath and dizziness. She states the past couple days she has had significantly worsening shortness of breath and feels dizzy when she stands. She recently had a right lung biopsy that resulted in a collapsed lung. She had a chest tube for a short time. She spoke with her surgeon today who sent her back into ensure she did not have a pneumothorax again. Patient denies chest pain. She does comment that she had some dark vomitus last week and that her stools have been dark. She states she she has been constipated has not had a recent bowel movement. Patient has a history of pancreatic cancer and was receiving chemotherapy until the first week in March. Chemotherapy is now on hold pending surgery for a lung nodule. [facility] Medical History Asthma Cervical spinal stenosis COPD (chronic obstructive pulmonary disease) Diabetes Headache Hiatal hernia History of diverticulitis History of pancreatitis Hypertension Paresthesia of right upper extremity Home Medications albuterol sulfate 90 mcg/actuation aerosol inhaler 1 puff inhalation PRN PRN Sob &/Or Wheezing 10/08/19 [History Last Taken 04/19/21] aspirin 81 mg chewable tablet 81 mg PO BREAKFAST heart 03/23/22 [History Last Taken 03/22/22] esomeprazole magnesium 40 mg capsule,delayed release 40 cap PO DAILY acid reflux 03/23/22 [History Last Taken Unknown] gabapentin 100 mg capsule 100 cap PO QHS nerve pain 03/23/22 [History Last Taken 03/22/22] insulin glargine 100 unit/mL (3 mL) subcutaneous pen (Lantus Solostar U-100 Insulin) 16 ea subcut QHS blood sugar 03/23/22 [History Last Taken 03/22/22] insulin lispro 100 unit/mL subcutaneous pen 10 unit subcut TIDCM blood sugar 03/23/22 [History Last Taken 03/23/22] oxycodone-acetaminophen 5 mg-325 mg tablet 1 tab PO TID PRN PRN Pain 03/23/22 [History Last Taken Unknown] oxycodone 5 mg capsule 5 mg PO Q8H PRN pain 8 days #24 caps 03/25/22 [Rx Last Taken Unknown] Allergy/AdvReac Type Severity Reaction Status Date / Time No Known Allergies Allergy Verified 04/17/22 12:49 Family History Father CVA (cerebral vascular accident) Brother CVA (cerebral vascular accident) Other Asthma Surgical History History of cholecystectomy History of esophagogastroduodenoscopy (EGD) History of tubal ligation Social History Smoking Status: Never smoker alcohol intake: current details: infrequent substance use type: does not use ROS ROS ED Constitutional Constitutional ED: Denies chills or fever(s) Eyes Eyes: Denies change in vision or discharge from eye(s) ENT ENT ED: Denies discharge from eye(s), rhinorrhea or sore throat Cardiovascular Cardiovascular: Denies chest pain or palpitations Respiratory/Chest Respiratory/Chest: Reports dyspnea; Denies cough Gastrointestinal Gastrointestinal: Reports other Details: Episode of black vomitus last week. ; Denies abdominal pain, diarrhea, nausea or vomiting Genitourinary Genitourinary ED: Denies difficulty urinating or dysuria Musculoskeletal Musculoskeletal: Denies back pain or extremity pain Integumentary Denies Abrasions or rash Neurologic Neurologic: Denies headache(s) or weakness Endocrine Endocrinology: Denies polydipsia or polyuria Allergic/Immunologic Allergic/Immunologic ED: Denies lip swelling or urticaria EXAM Physical Exam Const Vital Signs: 04/17/22 12:46 04/17/22 13:49 04/17/22 14:13 Temperature 97 F L Temperature Source Temporal Pulse Rate 81 71 Respiratory Rate 16 15 Respiratory Effort Normal Non-Labored Respiratory Depth Normal Respiratory Pattern Normal Blood Pressure 146/119 H Blood Pressure Mean 128 Pulse Ox 100 100 Oxygen Delivery Method Room Air Room Air Room Air Positive cachectic General Appearance ED: cachectic Nutritional Appearance: cachectic HEENT Reports normocephalic and head/scalp atraumatic Eyes PERRL and EOMs intact bilaterally Neck supple Chest Wall inspection of chest normal and palpation of chest normal Chest Narrative: Port in the right upper chest. Resp normal respiratory effort and clear to auscultation bilaterally Cardio regular rate and regular rhythm GI normal to inspection, nondistended, normoactive bowel sounds Palpation: soft Extremity normal to inspection Neuro oriented x3 and no sensory deficits noted Sensorium / Orientation: alert Motor Exam: strength 5/5 throughout Psych mental status grossly normal Skin no rashes or lesions noted MDM MDM MDM Narrative Medical decision making narrative: Chest x-ray, EKG, lab work obtained. Lab Data Attestation: I reviewed the patient's lab results. Labs: Laboratory Results - last 24 hr 04/17/22 04/17/22 04/17/22 13:40 13:40 13:40 WBC 6.6 RBC 3.94 L Hgb 9.6 L Hct 31.6 L MCV 80.2 L MCH 24.4 L MCHC 30.4 L RDW Std Deviation 51.7 H RDW Coeff of Williams 18.0 H Plt Count 250 MPV 10.4 Immature Gran % (Auto) 0.600 Neut % (Auto) 57.3 Lymph % (Auto) 27.6 [place] % (Auto) 10.9 H Eos % (Auto) 3.0 Baso % (Auto) 0.6 Absolute Neuts (auto) 3.8 Absolute Lymphs (auto) 1.82 Nucleated RBC % 0 PT 13.5 INR 1.1 APTT 23.7 L D-Dimer Quant (PE/DVT) 0.49 Sodium 137 Potassium 3.0 L Chloride 104 Carbon Dioxide 23.0 Anion Gap 10 BUN 26 H Creatinine 0.86 Estim Creat Clear Calc 54.77 Est GFR (MDRD) Af Amer 84 Est GFR (MDRD) Non-Af 69 BUN/Creatinine Ratio 30.3 H Glucose 238 H Calcium 9.1 Total Bilirubin 2.50 H Direct Bilirubin 1.76 H AST 526 H ALT 550 H Alkaline Phosphatase 953 H Troponin I High Sens 8 Total Protein 6.9 Albumin 3.2 Globulin 3.7 Radiography Chest X-Ray - ED: 1 View, Read by ED Physician, Chronic Changes and - (No pneumothorax.) Diagnostic Testing: Clinical Impression(s) from Imaging Studies Chest X-Ray 04/17/22 13:57 IMPRESSION: Hyperinflation. Questionable small nodular density in the left midlung. Electronically Signed: Milan Orozco MD at 14:16 EDT , Abdomen/Pelvis CT 04/17/22 14:51 IMPRESSION: Enlargement of the head of the pancreas with dilated intrahepatic and extrahepatic biliary ducts. Large hiatal hernia. Electronically Signed: Milan Orozco MD at 15:34 EDT , EKG Initial EKG: Attestation: I personally reviewed and interpreted this EKG as follows: Interpretation: Sinus Rhythm (Sinus at 78 with no acute ischemia.) Treatment and Re-Evaluation Narrative: Patient CBC reveals white count of 6.6 and hemoglobin of 9.6. I was able to find the most recent 2 lab draws from [facility]. On March 21 her hemoglobin was 10.3 and on March 09 it was 9.2. Chemistry studies significant for potassium of 3.0. Renal function is normal. LFTs are significantly elevated today with an alk phos of 953, ALT 550, AST 526. Direct bilirubin is 1.76 and total bilirubin is 2.50. On prior labs patient's LFTs had all been in the normal range. Patient was given oral potassium replacement along with Compazine for nausea. I spoke with Dr. Rhodes, her oncologist. He did request a CT scan of the abdomen and pelvis with IV contrast. This reveals evidence of a pancreatic mass with dilated intra and extrahepatic ducts. I spoke with Dr. Cox who reviewed the imaging. He does believe that he would be able to place a stent and help relieve this obstruction. I will update Dr. Rhodes as well as speak with hospitalist for admission. Discharge Plan Dx/Rx/DC Orders Clinical Impression: Pancreatic cancer, Dyspnea, Elevated LFTs Disposition Disposition: Acute Care Hospital [facility]
--- NOTE | 2022-04-17 13:57 | RAD_ITS ---
STUDY: X-RAY CHEST REASON FOR EXAM: Female, 71 years old. Sob TECHNIQUE: Single AP portable view of the chest. COMPARISON: Comparison is made with prior study dated 03/25/2022. FINDINGS: A right-sided portacatheter is seen with the tip in the midportion of the superior vena cava. EKG electrodes are seen. Hyperinflation. Questionable tiny density in the left midlung. There is no demonstrated pleural abnormality. Normal size heart. A left-sided dual-chamber pacemaker is seen. Normal mediastinum and baldev. Normal visualized pulmonary arteries. There is atherosclerotic calcification of the aortic arch with tortuosity. Normal visualized thoracic spine. Normal visualized ribs, clavicles, and shoulders. Small hiatal hernia. RAD/Chest 1 View (Portable) IMPRESSION: Hyperinflation. Questionable small nodular density in the left midlung. Electronically Signed: Milan Orozco MD at 14:16 EDT ,
[2022-04-17 14:00] LABS: International Normalized Ratio 1.1; Prothrombin Time (Protime)PT. 13.5 SECONDS (11.7-14.9)
[2022-04-17 14:01] LABS: Partial Thromboplast Time 23.7 Seconds (24.1-36.2)
[2022-04-17 14:10] LABS: AST(SGOT) 526 U/L (15-37); Alanine Aminotransfer ALT/SGPT 550 U/L (13-56); Albumin, Serum 3.2 g/dL (3.2-5.0); Alkaline Phosphatase 953 U/L (45-117); Anion Gap 10 (5-15); BUN 26 mg/dL (7-18); BUN/Creat Ratio 30.3 RATIO (10-20); Bilirubin, Direct 1.76 mg/dL (0.00-0.30); Calcium,Total 9.1 mg/dL (8.5-10.1); Chloride 104 mmol/L (98-107); Creatinine, Serum 0.86 mg/dL (0.55-1.02); EST Glomerular Filtration Rate 69 mL/min (>60); Est Glom Filt Rate - Afr Amer 84 mL/min (>60); Estimated Creatinine Clearance 54.77 ml/min; Globulin 3.7 g/dL (2.2-4.2); Glucose 238 mg/dL (74-106); Protein, Total 6.9 g/dL (6.4-8.2); Sodium Level 137 mmol/L (136-145); Troponin-I HS 8 pg/mL (3.0-54.0)
[2022-04-17] MEDS: 0.9% Normal Saline 1,000 ML 100 ML IV ×2 (14:10→18:13)
[2022-04-17 14:15] LABS: D-Dimer Quantitative (DVT/PE) 0.49 FEU/ug/m (0.27-0.49)
[2022-04-17] MEDS: Potassium Chloride Oral Tablet 20 MEQ 40 MEQ PO (14:41)
--- NOTE | 2022-04-17 14:51 | CT_ITS ---
STUDY: CT ABDOMEN AND PELVIS WITH CONTRAST REASON FOR EXAM: Female, 71 years old. Abnormal labs, pancreatic cancer RADIATION DOSAGE (If Supplied By Facility): CTDIvol = ( 9.87 ) mGy, DLP = ( 494.27 ) mGycm TECHNIQUE: Transaxial images were obtained from the dome of the diaphragm to the symphysis pubis without oral contrast. IV 100mL [id number]-300 was administered. Sagittal and coronal images were reconstructed. Individualized dose optimization techniques were used for this CT. COMPARISON: None. FINDINGS: The visualized lung bases are unremarkable. A dual-chamber pacemaker is seen. Dilated intrahepatic biliary ducts. Dilated common bile duct. The duct measures 1.6 cm in transverse dimension. There are surgical clips in the gallbladder fossa consistent with a prior cholecystectomy. Normal spleen. The head of the pancreas measures 2.9 size by 2.4 cm. I suspect a 2 cm x 2.1 cm mass in the region of the abdomen the pancreas causing dilatation of the common bile duct. Normal bilateral adrenal glands. Normal right kidney. Normal left kidney. There is a large hiatal hernia composed mostly of the fundus of the stomach. Retained food is seen within the stomach. Normal small intestine. There are multiple colonic diverticula consistent with diverticulosis. Moderate amount of fecal material is seen in the colon. The appendix is visualized and appears normal. There is diffuse atherosclerotic calcification of the abdominal aorta, without a demonstrated aneurysm. Normal inferior vena cava. Normal retroperitoneum. Normal urinary bladder. Normal abdominal wall. There are mild degenerative changes of the visualized lumbar spine. CT/Abdomen/Pelvis W IV Cont ONLY IMPRESSION: Enlargement of the head of the pancreas with dilated intrahepatic and extrahepatic biliary ducts. Large hiatal hernia. Electronically Signed: Milan Orozco MD at 15:34 EDT ,
[2022-04-17] MEDS: DiphenhydrAMINE 50 MG/ML Syringe 12.5 MG IV (15:00)
[2022-04-17] MEDS: proCHLORPERazine 10 MG/2 ML Vial 5 MG IV (15:01)
--- NOTE | 2022-04-17 16:00 | NURSING ---
DR GARNETT FOR DR ALMANZAR
--- NOTE | 2022-04-17 16:09 | NURSING ---
MED SURG CONTRERASONIS PANCREATIC CANCER, BILLIARY OBSTRUCTION
--- NOTE | 2022-04-17 16:57 | PCM.HP.STD ---
Documented by User: SALLY Coates 04/17/22 17:06 HPI - General General Date of Admission: 04/17/22 Date of Service: 04/17/22 Chief Complaint: Shortness of breath HPI Narrative LORE WHITAKER, is a 71 F who presents with complaints of shortness of breath and dizziness. Patient states that she recently had a right lung biopsy which resulted in a collapsed lung and had a chest tube for a short period of time. Patient states that she called her surgeon's office and they sent her to the ER to be evaluated to make sure she did not redevelop pneumothorax. Patient states that she has had some dark vomitus in the past week and that her stools have been dark. Patient states that she has been constipated. Patient states that she has been diagnosed with pancreatic cancer and was receiving chemotherapy up until the first week of March at which point she started chemotherapy so that she could undergo a Whipple procedure at the end of this month. Patient has a history of asthma, stroke, pancreatic cancer. Patient underwent abdominal CT and it was noted that patient has a pancreatic mass with dilated intra and extrahepatic ducts. Dr. Cox was consulted. [facility] Medical History Asthma Cervical spinal stenosis COPD (chronic obstructive pulmonary disease) Diabetes Headache Hiatal hernia History of diverticulitis History of pancreatitis Hypertension Paresthesia of right upper extremity Home Medications albuterol sulfate 90 mcg/actuation aerosol inhaler 1 puff inhalation PRN PRN Sob &/Or Wheezing 10/08/19 [History Last Taken 04/19/21] aspirin 81 mg chewable tablet 81 mg PO BREAKFAST heart 03/23/22 [History Last Taken 03/22/22] esomeprazole magnesium 40 mg capsule,delayed release 40 cap PO DAILY acid reflux 03/23/22 [History Last Taken Unknown] gabapentin 100 mg capsule 100 cap PO QHS nerve pain 03/23/22 [History Last Taken 03/22/22] insulin glargine 100 unit/mL (3 mL) subcutaneous pen (Lantus Solostar U-100 Insulin) 16 ea subcut BID blood sugar 03/23/22 [History Last Taken 03/22/22] insulin lispro 100 unit/mL subcutaneous pen 10 unit subcut TIDCM blood sugar 03/23/22 [History Last Taken 03/23/22] oxycodone-acetaminophen 5 mg-325 mg tablet 1 tab PO Q6H PRN Pain 03/23/22 [History Last Taken Unknown] naproxen 500 mg tablet 500 mg PO BID PRN Pain 04/17/22 [History Last Taken Unknown] Allergy/AdvReac Type Severity Reaction Status Date / Time No Known Allergies Allergy Verified 04/17/22 12:49 Family History Father CVA (cerebral vascular accident) Brother CVA (cerebral vascular accident) Other Asthma Surgical History History of cholecystectomy History of esophagogastroduodenoscopy (EGD) History of tubal ligation Social History Smoking Status: Never smoker alcohol intake: current details: infrequent substance use type: does not use ROS Constitutional Constitutional: Reports fatigue and malaise; Denies anorexia, change in weight, chills or fever(s) Cardiovascular Cardiovascular: Denies chest pain, edema or palpitations Respiratory/Chest Respiratory/Chest: Reports shortness of breath at rest and shortness of breath with exertion; Denies cough or wheezing Gastrointestinal Gastrointestinal: Reports abdominal pain, constipation, nausea and vomiting; Denies diarrhea Genitourinary Genitourinary: Denies dysuria or hematuria Musculoskeletal Musculoskeletal: Denies back pain, extremity pain, joint pain or joint stiffness Integumentary Integumentary: Denies dry skin Neurologic Neurologic: Denies abnormal gait, abnormal speech, confusion or dizziness Psychiatric Psychiatric: Denies anxiety or depression Endocrine Endocrinology: Denies change in body appearance Hematologic/Lymphatic Hematologic/Lymphatic: Denies anemia Vital Signs Vital Signs Vital Signs: 04/17/22 12:46 04/17/22 13:49 04/17/22 14:13 Temperature 97 F L Temperature Source Temporal Pulse Rate 81 71 Respiratory Rate 16 15 Respiratory Effort Normal Non-Labored Respiratory Depth Normal Respiratory Pattern Normal Blood Pressure 146/119 H Blood Pressure Mean 128 Pulse Ox 100 100 Oxygen Delivery Method Room Air Room Air Room Air 04/17/22 16:08 04/17/22 15:49 04/17/22 15:00 Temperature 98.6 F 98.6 F Temperature Source Temporal Temporal Pulse Rate 70 70 69 Respiratory Rate 16 16 15 Respiratory Effort Respiratory Depth Respiratory Pattern Blood Pressure 142/99 H 142/99 H Blood Pressure Mean 113 Pulse Ox 99 99 99 Oxygen Delivery Method Room Air Room Air Room Air Weight Weight: 130 lb Body Mass Index (BMI) 21.6 Physical Exam Const alert, oriented x3 and no apparent distress General Appearance: cooperative HEENT normocephalic, head/scalp atraumatic and moist oral mucous membranes Eyes conjunctivae normal and no scleral icterus Neck supple General: trachea midline Resp normal respiratory effort, normal air movement and clear to auscultation bilaterally Cardio regular rate, regular rhythm, S1 normal heart sound, S2 normal heart sound and peripheral pulses 2+ throughout GI normal to inspection, nondistended, normoactive bowel sounds, soft to palpation and non-tender Extremity normal capillary refill and no clubbing, cyanosis or edema Skin Lesions: no lesions Rashes: no rashes Neuro no focal motor deficits and no sensory deficits noted Speech: speech normal Psych thought process normal, cooperative and affect normal Results Lab / Micro Data Result Diagrams: 04/17/22 13:40 04/17/22 13:40 Labs: Laboratory Results - last 24 hr 04/17/22 13:40: WBC 6.6, RBC 3.94 L, Hgb 9.6 L, Hct 31.6 L, MCV 80.2 L, MCH 24.4 L, MCHC 30.4 L, RDW Std Deviation 51.7 H, RDW Coeff of Williams 18.0 H, Plt Count 250, MPV 10.4, Immature Gran % (Auto) 0.600, Neut % (Auto) 57.3, Lymph % (Auto) 27.6, [place] % (Auto) 10.9 H, Eos % (Auto) 3.0, Baso % (Auto) 0.6, Absolute Neuts (auto) 3.8, Absolute Lymphs (auto) 1.82, Nucleated RBC % 0 04/17/22 13:40: PT 13.5, INR 1.1, APTT 23.7 L, D-Dimer Quant (PE/DVT) 0.49 04/17/22 13:40: Sodium 137, Potassium 3.0 L, Chloride 104, Carbon Dioxide 23.0, Anion Gap 10, BUN 26 H, Creatinine 0.86, Estim Creat Clear Calc 54.77, Est GFR (MDRD) Af Amer 84, Est GFR (MDRD) Non-Af 69, BUN/Creatinine Ratio 30.3 H, Glucose 238 H, Calcium 9.1, Total Bilirubin 2.50 H, Direct Bilirubin 1.76 H, AST 526 H, ALT 550 H, Alkaline Phosphatase 953 H, Troponin I High Sens 8, Total Protein 6.9, Albumin 3.2, Globulin 3.7 Radiology Impression Chest X-Ray 04/17/22 13:57 IMPRESSION: Hyperinflation. Questionable small nodular density in the left midlung. Electronically Signed: Milan Orozco MD at 14:16 EDT , Abdomen/Pelvis CT 04/17/22 14:51 IMPRESSION: Enlargement of the head of the pancreas with dilated intrahepatic and extrahepatic biliary ducts. Large hiatal hernia. Electronically Signed: Milan Orozco MD at 15:34 EDT , Assessment & Plan Assessment/Plan (1) Pancreatic cancer: (2) Elevated LFTs: PLAN: Plan 1. Pancreatic cancer with enlargement of the head of the pancreas and dilated intrahepatic and extrahepatic biliary ducts -Admit to [facility] -Consult GI, case discussed with Dr. Cox by ER physician -Case discussed with Dr. Rhodes who is patient's oncologist -CBC and CMP ordered for a.m. -Normal saline 100 mL/h -IV Zofran and morphine ordered for nausea and pain 2. Elevated LFTs -Likely elevated secondary to dilated biliary ducts -Dr. Cox consulted -Probable ERCP for this admission with stent placement -CMP daily 3. Diabetes mellitus type 2 with neuropathy -ACH S blood sugars are sliding scale insulin ordered -continue patient's home regimen of short and long-acting insulin -Continue gabapentin DVT prophylaxis-SCDs This patient was seen by Megan Blackman NP-C under the supervision of Dr. Fuentes 29 minutes spent in clinical coordination of patient's plan of care. Documented by User: Dr. Vitor Fuentes MD 04/17/22 17:21 HPI - General General Date of Admission: 04/17/22 [facility] Medical History Asthma Cervical spinal stenosis COPD (chronic obstructive pulmonary disease) Diabetes Headache Hiatal hernia History of diverticulitis History of pancreatitis Hypertension Paresthesia of right upper extremity Home Medications albuterol sulfate 90 mcg/actuation aerosol inhaler 1 puff inhalation PRN PRN Sob &/Or Wheezing 10/08/19 [History Last Taken 04/19/21] aspirin 81 mg chewable tablet 81 mg PO BREAKFAST heart 03/23/22 [History Last Taken 03/22/22] esomeprazole magnesium 40 mg capsule,delayed release 40 cap PO DAILY acid reflux 03/23/22 [History Last Taken Unknown] gabapentin 100 mg capsule 100 cap PO QHS nerve pain 03/23/22 [History Last Taken 03/22/22] insulin glargine 100 unit/mL (3 mL) subcutaneous pen (Lantus Solostar U-100 Insulin) 16 ea subcut BID blood sugar 03/23/22 [History Last Taken 03/22/22] insulin lispro 100 unit/mL subcutaneous pen 10 unit subcut TIDCM blood sugar 03/23/22 [History Last Taken 03/23/22] oxycodone-acetaminophen 5 mg-325 mg tablet 1 tab PO Q6H PRN Pain 03/23/22 [History Last Taken Unknown] naproxen 500 mg tablet 500 mg PO BID PRN Pain 04/17/22 [History Last Taken Unknown] Allergy/AdvReac Type Severity Reaction Status Date / Time No Known Allergies Allergy Verified 04/17/22 12:49 Family History Father CVA (cerebral vascular accident) Brother CVA (cerebral vascular accident) Other Asthma Surgical History History of cholecystectomy History of esophagogastroduodenoscopy (EGD) History of tubal ligation Social History Smoking Status: Never smoker alcohol intake: current details: infrequent substance use type: does not use Results Lab / Micro Data Result Diagrams: 04/17/22 13:40 04/17/22 13:40 Assessment & Plan Assessment/Plan (1) Pancreatic cancer: (2) Elevated LFTs: Charges/Coding Addendum Addendum: Addendum: Dr. Fuentes I personally examined the patient and reviewed the chart. I agree with the above. 71-year-old female who was diagnosed with pancreatic cancer in September was on chemo and doing well, her cancer numbers had come down however she was found to have a possible lung nodule last month and so was scheduled for biopsy however they were unable to get a sample and they managed to cause a pneumothorax which led to a chest tube. She presents again due to shortness of breath and her general surgeon recommended following up to the hospital with concerns that she had a repeated pneumothorax. Chest x-ray was unremarkable, there is no pneumothorax however lab work demonstrated elevated LFTs as well as an elevated bilirubin which is new for her. CT of her abdomen and pelvis demonstrated intra and extrahepatic biliary ductal dilatation, consistent with compression from her pancreatic head mass. She is a [employer] so she would not like any blood transfusions, her hemoglobin is 9.6 today which is stable based on the last 2 readings from her [facility] records. We will consult gastroenterology for an ERCP and stent and then she will likely need to follow-up as an outpatient with the surgeon who can perform a Whipple on her to see if he would like to proceed with a repeated biopsy of her left lung for sampling. Also of note she had an echo done last April secondary to a TIA/CVA and she was found to have a normal EF, troponin today was unremarkable however if we still cannot find a source for her shortness of breath may be beneficial proceed with a cardiac work-up as she is planning on having a Whipple procedure done in the near future anyway. Clinical time spent in all aspects of patient care: 43 minutes Visit Charges Inpatient E&M: 58286 Init Hosp L3
--- NOTE | 2022-04-17 17:55 | CON.PCM_ITS ---
Assessment & Plan Assessment/Plan (1) Pancreatic cancer: PLAN: I will start her on Levaquin 500 mg a day. She will need to undergo ERCP with drainage of the hepatobiliary system with hopeful surgery in the future after she completes chemotherapy. She was explained alternatives, risk, benefits including outstanding bleeding, infection, sepsis, perforation, need for emergent . Have an ASA of 3. HPI Consult Data Date of Consult: 04/17/22 HPI Narrative Reason for Consultation: juliana HPI Narrative: LORE WHITAKER, is a 71 F who presents secondary to shortness of breath and dizziness.? She states the past couple days she has had significantly worsening shortness of breath and feels dizzy when she stands.? She recently had a right lung biopsy that resulted in a collapsed lung.? She had a chest tube for a short time.? She spoke with her surgeon today who sent her back into ensure she did not have a pneumothorax again.? Patient denies chest pain.? She does comment that she had some dark vomitus last week and that her stools have been dark.? She states she she has been constipated has not had a recent bowel movement.? Patient has a history of pancreatic cancer and was receiving chemotherapy until the first week in March.? Chemotherapy is now on hold pending surgery for a lung nodule. [facility] Medical History Asthma Cervical spinal stenosis COPD (chronic obstructive pulmonary disease) Diabetes Headache Hiatal hernia History of diverticulitis History of pancreatitis Hypertension Paresthesia of right upper extremity Home Medications albuterol sulfate 90 mcg/actuation aerosol inhaler 1 puff inhalation PRN PRN Sob &/Or Wheezing 10/08/19 [History Last Taken 04/19/21] aspirin 81 mg chewable tablet 81 mg PO BREAKFAST heart 03/23/22 [History Last Taken 03/22/22] esomeprazole magnesium 40 mg capsule,delayed release 40 cap PO DAILY acid reflux 03/23/22 [History Last Taken 04/17/22] gabapentin 100 mg capsule 100 cap PO QHS nerve pain 03/23/22 [History Last Taken 04/16/22] insulin glargine 100 unit/mL (3 mL) subcutaneous pen (Lantus Solostar U-100 Insulin) 16 ea subcut BID blood sugar 03/23/22 [History Last Taken 03/22/22] insulin lispro 100 unit/mL subcutaneous pen 10 unit subcut TIDCM blood sugar 03/23/22 [History Last Taken 03/23/22] oxycodone-acetaminophen 5 mg-325 mg tablet 1 tab PO Q6H PRN Pain 03/23/22 [History Last Taken Unknown] naproxen 500 mg tablet 500 mg PO BID PRN Pain 04/17/22 [History Last Taken 04/16/22] Allergy/AdvReac Type Severity Reaction Status Date / Time No Known Allergies Allergy Verified 04/17/22 12:49 Family History Father CVA (cerebral vascular accident) Brother CVA (cerebral vascular accident) Other Asthma Surgical History History of cholecystectomy History of esophagogastroduodenoscopy (EGD) History of tubal ligation Social History Smoking Status: Never smoker alcohol intake: current details: infrequent substance use type: does not use ROS Constitutional Constitutional: Reports fatigue and malaise; Denies anorexia, change in weight, chills or fever(s) Cardiovascular Cardiovascular: Denies chest pain, edema or palpitations Respiratory/Chest Respiratory/Chest: Reports shortness of breath at rest and shortness of breath with exertion; Denies cough or wheezing Gastrointestinal Gastrointestinal: Reports abdominal pain, constipation, nausea and vomiting; Denies diarrhea Genitourinary Genitourinary: Denies dysuria or hematuria Musculoskeletal Musculoskeletal: Denies back pain, extremity pain, joint pain or joint stiffness Integumentary Integumentary: Denies dry skin Neurologic Neurologic: Denies abnormal gait, abnormal speech, confusion or dizziness Psychiatric Psychiatric: Denies anxiety or depression Endocrine Endocrinology: Denies change in body appearance Hematologic/Lymphatic Hematologic/Lymphatic: Denies anemia Physical Exam Const alert, oriented x3 and no apparent distress General Appearance: cooperative HEENT normocephalic, head/scalp atraumatic and moist oral mucous membranes Eyes conjunctivae normal and no scleral icterus Neck supple General: trachea midline Resp normal respiratory effort, normal air movement and clear to auscultation bilaterally Cardio regular rate, regular rhythm, S1 normal heart sound, S2 normal heart sound and peripheral pulses 2+ throughout GI normal to inspection, nondistended, normoactive bowel sounds, soft to palpation and non-tender Extremity normal capillary refill and no clubbing, cyanosis or edema Skin Lesions: no lesions Rashes: no rashes Neuro no focal motor deficits and no sensory deficits noted Speech: speech normal Psych thought process normal, cooperative and affect normal Lab / Micro Data Result Diagrams: 04/17/22 13:40 04/17/22 13:40 Labs: Laboratory Results - last 24 hr 04/17/22 13:40: WBC 6.6, RBC 3.94 L, Hgb 9.6 L, Hct 31.6 L, MCV 80.2 L, MCH 24.4 L, MCHC 30.4 L, RDW Std Deviation 51.7 H, RDW Coeff of Williams 18.0 H, Plt Count 250, MPV 10.4, Immature Gran % (Auto) 0.600, Neut % (Auto) 57.3, Lymph % (Auto) 27.6, [place] % (Auto) 10.9 H, Eos % (Auto) 3.0, Baso % (Auto) 0.6, Absolute Neuts (auto) 3.8, Absolute Lymphs (auto) 1.82, Nucleated RBC % 0 04/17/22 13:40: PT 13.5, INR 1.1, APTT 23.7 L, D-Dimer Quant (PE/DVT) 0.49 04/17/22 13:40: Sodium 137, Potassium 3.0 L, Chloride 104, Carbon Dioxide 23.0, Anion Gap 10, BUN 26 H, Creatinine 0.86, Estim Creat Clear Calc 54.77, Est GFR (MDRD) Af Amer 84, Est GFR (MDRD) Non-Af 69, BUN/Creatinine Ratio 30.3 H, Glucose 238 H, Calcium 9.1, Total Bilirubin 2.50 H, Direct Bilirubin 1.76 H, AST 526 H, ALT 550 H, Alkaline Phosphatase 953 H, Troponin I High Sens 8, Total P rotein 6.9, Albumin 3.2, Globulin 3.7 Radiology Impression Chest X-Ray 04/17/22 13:57 IMPRESSION: Hyperinflation. Questionable small nodular density in the left midlung. Electronically Signed: Milan Orozco MD at 14:16 EDT , Abdomen/Pelvis CT 04/17/22 14:51 IMPRESSION: Enlargement of the head of the pancreas with dilated intrahepatic and extrahepatic biliary ducts. Large hiatal hernia. Electronically Signed: Milan Orozco MD at 15:34 EDT , Charges/Coding Visit Charges Inpatient E&M: 68364 Init Hosp L2
[2022-04-17] MEDS: levoFLOXacin IV 500 MG/100 ML BAG 100 MG IV (18:15)
[2022-04-17] MEDS: Insulin Lispro 100 UNIT/ML INSULN.PEN 10 UNIT SC (18:33)
[2022-04-17 18:36] LABS: Bedside Glucose 211 mg/dL (74-106)
[2022-04-17] MEDS: Gabapentin 100 MG Capsule PO (21:23)
[2022-04-17] MEDS: Insulin Glargine-YFGN 100 UNIT/ML Pen 16 UNIT SC (21:27)
[2022-04-17 22:01] LABS: Bedside Glucose 128 mg/dL (74-106)
[2022-04-18] VITALS (10 sets, daily range): BP systolic 117–162; BP diastolic 7–76; PULSE 60–71; RESP 14–20; TEMP 36.2–36.9; O2SAT 95–100; BMI 21.2
[2022-04-18] MEDS: 0.9% Normal Saline 1,000 ML 100 ML IV ×3 (03:22→23:36)
[2022-04-18] MEDS: 0.9% Saline Lock 10 ML Syringe IV (05:21)
[2022-04-18 05:40] LABS: Absolute Lymphocyte Count 1.58 X10^3/uL (0.83-4.51); Absolute Neutrophil Count 2.6 X10^3/uL (2.0-7.7); Basophil# 0.04 X10^3/uL; Basophil% 0.8 % (0-1); Eosinophil# 0.39 X10^3/uL; Eosinophils% 7.6 % (0-5); Hematocrit 29.1 % (37-47); Lymphocyte # 1.58 X10^3/ul (0.83-4.51); Lymphocyte % 30.9 % (19-41); Mean Corp Hgb Conc 30.9 g/dL (32-36); Mean Corpuscular Hgb 25.1 pg (27.0-32.0); Mean Corpuscular Volume 81.1 fL (81-99); Mean Platelet Vol. 10.6 fl (6.2-12.0); Monocyte# 0.49 X10^3/uL; Monocyte% 9.6 % (0-10); NRBC Flagged by Analyzer 0 % (0-5); Neutrophil % 50.7 % (47-70); Platelet Count 251 K/mm3 (150-450); RBC Distribution Width CV 18.4 % (11.6-14.6); RBC Distribution Width SD 53.1 fl (35.1-43.9); Red Blood Count 3.59 M/mm3 (4.2-5.4); White Blood Count 5.1 K/mm3 (4.4-11.0)
[2022-04-18 07:01] LABS: ALB/GLOB Ratio 0.8 RATIO (0.9-2.4); AST(SGOT) 391 U/L (15-37); Alanine Aminotransfer ALT/SGPT 492 U/L (13-56); Albumin, Serum 2.5 g/dL (3.2-5.0); Alkaline Phosphatase 814 U/L (45-117); Anion Gap 6 (5-15); BUN 16 mg/dL (7-18); BUN/Creat Ratio 33.8 RATIO (10-20); Calcium,Total 6.2 mg/dL (8.5-10.1); Chloride 110 mmol/L (98-107); Creatinine, Serum 0.47 mg/dL (0.55-1.02); EST Glomerular Filtration Rate 138 mL/min (>60); Est Glom Filt Rate - Afr Amer 167 mL/min (>60); Globulin 3.3 g/dL (2.2-4.2); Glucose 165 mg/dL (74-106); Potassium 4.6 mmol/L (3.5-5.1); Protein, Total 5.8 g/dL (6.4-8.2); Sodium Level 141 mmol/L (136-145)
[2022-04-18 07:56] LABS: Bedside Glucose 144 mg/dL (74-106)
--- NOTE | 2022-04-18 08:49 | PCM.PN.HOSP ---
Subjective Subjective Follow-up for CBD obstruction due to pancreatic cancer No fever. Mild jaundice. No abdominal pain or abdominal distention. Objective Data Objective Data Vital Signs: Vital Signs Temp Pulse Resp BP Pulse Ox O2 Del Method 98.1 F 63 14 117/57 L 96 Room Air 04/18/22 07:33 04/18/22 07:33 04/18/22 07:33 04/18/22 07:33 04/18/22 07:33 04/18/22 07:33 Oxygen Delivery Method Room Air Weight: 127 lb 3.307 oz Body Mass Index (BMI) 21.2 Intake & Output: Intake and Output for Last 24 Hours 04/16/22 04/17/22 04/18/22 23:59 23:59 23:59 Intake Total 746.67 / 746.67 811.67 / 811.67 Output Total 0 / 0 Balance 746.67 / 746.67 811.67 / 811.67 Lab / Micro Data Result Diagrams: 04/18/22 05:18 04/18/22 05:18 Labs: Laboratory Results - last 24 hr 04/17/22 13:40: WBC 6.6, RBC 3.94 L, Hgb 9.6 L, Hct 31.6 L, MCV 80.2 L, MCH 24.4 L, MCHC 30.4 L, RDW Std Deviation 51.7 H, RDW Coeff of Williams 18.0 H, Plt Count 250, MPV 10.4, Immature Gran % (Auto) 0.600, Neut % (Auto) 57.3, Lymph % (Auto) 27.6, [place] % (Auto) 10.9 H, Eos % (Auto) 3.0, Baso % (Auto) 0.6, Absolute Neuts (auto) 3.8, Absolute Lymphs (auto) 1.82, Nucleated RBC % 0 04/17/22 13:40: PT 13.5, INR 1.1, APTT 23.7 L, D-Dimer Quant (PE/DVT) 0.49 04/17/22 13:40: Sodium 137, Potassium 3.0 L, Chloride 104, Carbon Dioxide 23.0, Anion Gap 10, BUN 26 H, Creatinine 0.86, Estim Creat Clear Calc 54.77, Est GFR (MDRD) Af Amer 84, Est GFR (MDRD) Non-Af 69, BUN/Creatinine Ratio 30.3 H, Glucose 238 H, Calcium 9.1, Total Bilirubin 2.50 H, Direct Bilirubin 1.76 H, AST 526 H, ALT 550 H, Alkaline Phosphatase 953 H, Troponin I High Sens 8, Total Protein 6.9, Albumin 3.2, Globulin 3.7 04/17/22 18:11: POC Glucose 211 H 04/17/22 21:20: POC Glucose 128 H 04/18/22 05:18: WBC 5.1, RBC 3.59 L, Hgb 9.0 L, Hct 29.1 L, MCV 81.1, MCH 25.1 L, MCHC 30.9 L, RDW Std Deviation 53.1 H, RDW Coeff of Williams 18.4 H, Plt Count 251, MPV 10.6, Immature Gran % (Auto) 0.400, Neut % (Auto) 50.7, Lymph % (Auto) 30.9, [place] % (Auto) 9.6, Eos % (Auto) 7.6 H, Baso % (Auto) 0.8, Absolute Neuts (auto) 2.6, Absolute Lymphs (auto) 1.58, Nucleated RBC % 0 04/18/22 05:18: Sodium 141, Potassium 4.6, Chloride 110 H, Carbon Dioxide 25.0, Anion Gap 6, BUN 16, Creatinine 0.47 L, Estim Creat Clear Calc 47.10, Est GFR (MDRD) Af Amer 167, Est GFR (MDRD) Non-Af 138, BUN/Creatinine Ratio 33.8 H, Glucose 165 H, Calcium 6.2 L*, Total Bilirubin 1.00, AST 391 H, ALT 492 H, Alkaline Phosphatase 814 H, Total Protein 5.8 L, Albumin 2.5 L, Globulin 3.3, Albumin/Globulin Ratio 0.8 L 04/18/22 07:31: POC Glucose 144 H Radiography Diagnostic Testing: Radiology Impression Chest X-Ray 04/17/22 13:57 IMPRESSION: Hyperinflation. Questionable small nodular density in the left midlung. Abdomen/Pelvis CT 04/17/22 14:51 IMPRESSION: Enlargement of the head of the pancreas with dilated intrahepatic and extrahepatic biliary ducts. Large hiatal hernia. Physical Exam Narrative Physical exam General: Alert, Oriented x3, Cooperative HEENT: Atraumatic, PERRLA, EOMI, Normocephalic, mild icterus Oral: No Gingival or Mucosal Lesions/ Ulcerations Neck: Supple, No JVD, Negative Carotid Bruits Lungs: Air entry diminished in bilateral lung bases. No crepitation/rhonchi Cardiovascular: Regular rate, Regular Rhythm, Normal S1, Normal S2, No murmurs Abdomen: Bowel Sounds Present, Soft, Non Tender, Non-Distended : No renal angle tenderness. No suprapubic tenderness. Extremities: No edema, Capillary Refill Less than 3 Seconds Skin: No rashes, No breakdown Musculoskeletal: No Tenderness to Palpation of Joints or Extremities Neurological: Cranial nerves II-XII grossly intact, DTR 2+/4 and Symmetrical, Neuro grossly intact Psych/Mental Status: Normal Affect, Appropriate. Assessment & Plan Assessment/Plan (1) Pancreatic cancer: (2) Elevated LFTs: PLAN: Plan This 71-year-old female diagnosed with pancreatic cancer in August 2021 had 5 cycles of chemotherapy 1. Pancreatic cancer with enlargement of the head of the pancreas and dilated intrahepatic and extrahepatic biliary ducts -Admit to [facility]. GI was consulted. Patient had ERCP with biliary sphincterotomy, drainage of sludge and debris and temporary stent placed. Biopsy taken. -Earlier hospitalist discussed with patient's oncologist Dr. Rhodes. Monitor CBC and CMP every day. -Normal saline 100 mL/h -IV Zofran and morphine ordered for nausea and pain 2. Elevated LFTs -Likely elevated secondary to dilated biliary ducts/biliary obstruction due to pancreatic cancer -Dr. Cox consulted 3. Diabetes mellitus type 2 with neuropathy -ACH S blood sugars are sliding scale insulin ordered -continue patient's home regimen of short and long-acting insulin -Continue gabapentin DVT prophylaxis-SCDs Charges/Coding Visit Charges Inpatient E&M: 67744 Subs Hosp L2
[2022-04-18] MEDS: levoFLOXacin IV 500 MG/100 ML BAG 100 MG IV (09:20)
--- NOTE | 2022-04-18 10:29 | NURSING ---
patient taken down for her MRCP at this time.
--- NOTE | 2022-04-18 11:03 | CASEMGMT ---
Addendum entered by Samantha Cope 04/18/22 13:38: Pt still out of room, will attempt CM assessment when returns. Mumtaz DE LEÓN CM Original Note: This RN CM to room to complete CM assessment and pt is out of the dept at this time. Mumtaz DE LEÓN CM
--- NOTE | 2022-04-18 11:10 | FLU_PTH ---
PATIENT: LORE WHITAKER V LOC: [facility] U#:[id number] AGE/SX: 71/F ROOM: [facility] RE04/17/[address]: Dr. Jerman Baldwin MD : 1950 BED: 1 DIS: 04/19/2022 SPEC #: [id number] RECD: 04/18/22 12:44 STATUS: DECLAN GOOD #: [id number] ANAIS: 04/18/22 11:[address]: Dajuan Cox DEPT: CYTOLOGY RECD BY: Vane Zarco ENTERED: 04/18/22 13:16 SP TYPE: Fluid OTHR DR: MD Dr. Jerman Rod MD Dr. Victor Velasquez, MD Tissues: A - Bile duct, NOS B - Bile duct, NOS Procedures: Special Stain Group II Mucicarmine Stain (control) Surgery Specimen Level IV Cytospin Fluid HEADER OPERATION: ERCP with stent placement PRE-OP DIAGNOSIS: Pancreatic cancer TISSUE SUBMITTED: A ? Biliary stricture brush tip, B - Biliary stricture brushings x3 slides DIAGNOSIS CYTOLOGY A. Biliary stricture brush tip fluid (cytospin and cell block): A few atypical cells are noted. See comment. B. Biliary stricture brushing (smears): Negative for malignant cells. See comment. SJ:rg 04/19/2022 COMMENT A. Mucin stain with matched control is used in the evaluation of the specimen. Atypical cells are focally positive for mucin. B. The specimen is paucicellular. Smears also show drying artifacts. Correlation with clinical, radiologic findings and appropriate follow up are necessary. This case is discussed with Dr. Cox on 04/23/2022 Please make reference to previous specimen from [facility] ([id number]) pancreas body mass, fine needle aspiration with diagnosis of ?positive for malignant cells. Adenocarcinoma.? CYTOLOGY STUDY Slides are reviewed. CYTOLOGY GROSS A - Received is 2 ml of yellow cloudy fluid with brush tip labeled with the patient's name and and designated per the requisition as biliary stricture. Submitted for cytology preparation including cell block. B - Received are three smears labeled with the patient's name and designated per the requisition as biliary stricture. Submitted for staining. / omar 04/18/2022 TC:4 CPT: 91146, 34181, 37737, 39882
--- NOTE | 2022-04-18 11:30 | RAD_ITS ---
STUDY: ERCP. REASON FOR EXAM: Female, 71 years old. Dilated intra and extrahepatic biliary ducts. FLUOROSCOPY TIME (if supplied): ( 3 minutes and 6 seconds. ) minutes/seconds TECHNIQUE: An ERCP was performed by the neurologist. Imaging was provided. COMPARISON: None. FINDINGS: There is evidence of a dilated intrahepatic biliary ducts as well as the proximal portion of the common bile duct. A biliary stent was placed. RAD/ERCP Biliary Only IMPRESSION: Intrahepatic biliary ductal dilatation. Biliary stent was placed. Electronically Signed: Milan Orozco MD at 8:34 EDT ,
--- NOTE | 2022-04-18 12:18 | OP.ERCP_ITS ---
Patient Name: Bridget Garcia Procedure Date: 04/18/2022 11:04 AM Date of : 1950 Age: 71 Procedure: ERCP Indications: Malignant tumor of the head of pancreas Providers: Dajuan Cox DO Medicines: General Anesthesia Patient Profile: This is a 71 year old female. Refer to note in patient chart for documentation of history and physical. Patient has symptoms of acute jaundice. Complications: No immediate complications. Procedure: Pre-Anesthesia Assessment: - Prior to the procedure, a History and Physical was performed, and patient medications and allergies were reviewed. The patient is competent. The risks and benefits of the procedure and the sedation options and risks were discussed with the patient. All questions were answered and informed consent was obtained. Patient identification and proposed procedure were verified by the physician in the pre-procedure area. Mental Status Examination: alert and oriented. Airway Examination: normal oropharyngeal airway and neck mobility. Respiratory Examination: clear to auscultation. CV Examination: normal. Prophylactic Antibiotics: The patient does not require prophylactic antibiotics. Prior Anticoagulants: The patient has taken no previous anticoagulant or antiplatelet agents. ASA Grade Assessment: II - A patient with mild systemic disease. After reviewing the risks and benefits, the patient was deemed in satisfactory condition to undergo the procedure. The anesthesia plan was to use moderate sedation / analgesia (conscious sedation). Immediately prior to administration of medications, the patient was re-assessed for adequacy to receive sedatives. The heart rate, respiratory rate, oxygen saturations, blood pressure, adequacy of pulmonary ventilation, and response to care were monitored throughout the procedure. The physical status of the patient was re-assessed after the procedure. After obtaining informed consent, the scope was passed under direct vision. Throughout the procedure, the patient's blood pressure, pulse, and oxygen saturations were monitored continuously. The Duodenoscope was introduced through the mouth, and advanced to the duodenum and used for direct visualization of the bile duct. The ERCP was accomplished without difficulty. The patient tolerated the procedure well. Scope In: 11:39:34 AM Scope Out: 12:05:39 PM Total Procedure Duration Time 0 hours 26 minutes 5 seconds Findings: The manager asset film was normal. The esophagus was successfully intubated under direct vision. The scope was advanced to a normal major papilla in the descending duodenum without detailed examination of the pharynx, larynx and associated structures, and upper GI tract. The upper GI tract was grossly normal. The bile duct was deeply cannulated with the short-nosed traction sphincterotome. Contrast was injected. I personally interpreted the bile duct images. There was brisk flow of contrast through the ducts. Opacification of the entire opacified area was successful. The maximum diameter of the ducts was 11 mm. The lower third of the main bile duct was partially obstructed by what appeared to be a mass. A straight Roadrunner wire was passed into the biliary tree. A 5 mm biliary sphincterotomy was made with a braided traction (standard) sphincterotome using ERBE electrocautery. There was no post-sphincterotomy bleeding. The biliary tree was swept with a 15 mm balloon starting at the bifurcation. Sludge was swept from the duct. Debris was swept from the duct. Dilation of the common bile duct with a 6-7-8 mm balloon dilator was successful. One 10 Fr by 7 cm temporary stent was placed 5 cm into the common bile duct. Bile flowed through the stent. The stent was in good position. Cells for cytology were obtained by brushing in the lower third of the main bile duct. The major papilla was normal. Impression: - The major papilla appeared normal. - A biliary tract obstruction secondary to what appeared to be a mass was found in the lower third of the main duct. - A biliary sphincterotomy was performed. - The biliary tree was swept and sludge and debris were found. - Common bile duct was successfully dilated. - One temporary stent was placed into the common bile duct. - Cells for cytology obtained in the lower third of the main duct. Procedure Code(s): --- Professional --- 00372, Endoscopic retrograde cholangiopancreatography (ERCP); with placement of endoscopic stent into biliary or pancreatic duct, including pre- and post-dilation and guide wire passage, when performed, including sphincterotomy, when performed, each stent 31015, Endoscopic retrograde cholangiopancreatography (ERCP); with removal of calculi/debris from biliary/pancreatic duct(s) 13100, 26, Endoscopic catheterization of the biliary ductal system, radiological supervision and interpretation CPT copyright 2017 [employer]. All rights reserved. The codes documented in this report are preliminary and upon camera engineer review may be revised to meet current compliance requirements. Dajuan Cox DO 04/18/2022 12:17:56 PM This report has been signed electronically. Number of Addenda: 0 Note Initiated On: 04/18/2022 11:04 AM
--- NOTE | 2022-04-18 12:19 | OP.CCLET_ITS ---
04/18/2022 Elbert Calvo [address] [place] [address] Re : ERCP procedure for Bridget Garcia Dear Dr. Calvo This procedure was performed on Monday, April 18, 2022. My impressions and recommendations are as follows: Impressions : - The major papilla appeared normal. - A biliary tract obstruction secondary to what appeared to be a mass was found in the lower third of the main duct. - A biliary sphincterotomy was performed. - The biliary tree was swept and sludge and debris were found. - Common bile duct was successfully dilated. - One temporary stent was placed into the common bile duct. - Cells for cytology obtained in the lower third of the main duct. Recommendations : My findings are described in the full procedure note, which is enclosed. If I can be of further assistance, please feel free to contact me at . Sincerely, Dajuan Cox, 04/18/2022 12:17:56 PM This report has been signed electronically.
[2022-04-18] MEDS: 0.9% Normal Saline 1,000 ML 999 ML IV ×2 (12:58→14:01)
--- NOTE | 2022-04-18 14:13 | NURSING ---
Pacer check completed post procedure
--- NOTE | 2022-04-18 14:48 | CASEMGMT ---
GENET OBREGON assessment: Face to Face with patient for initial transition planning/care coordination assessment. GENET OBRGEON introduced self and role at [facility], pt voices understanding and consents to assessment. Pt is sitting up in bed eating lunch in no distress on room air. Pt is A/Ox4 and answers all questions appropriately. Pt has family member at bedside.? Care providers, pharmacy,?and demographics verified. ? Presentation: Pt sent to ED by Dr. Guevara for SOB/dizziness, recent pneumothorax with chest tube Admitting dx: Pancreatic CA, biliary obstruction PCP: Umesh Specialists: Brandi, surgeon; Jere, cardio Preferred Pharmacy: [facility]: [facility] Will/HPOA: Pt has HPOA on file at [facility] and states does not have LW. Pt's daughter, Meli Keller, is HPOA. LNOK: Fabian Garcia, (currently at [facility] with full care); Meli Keller, daughter/HPOA Living Arrangements: Pt's 25yo grandson lives with her in mobile home with 3 steps in and states no concerns at home. Pt is independent with ADL's. Transportation: Pt states drives self and states no transportation concerns. DME/HHC: Pt has no current DME or need for any DME. Pt states no hx of HHC or SNF. Pt states no concerns with going home at time of discharge. Pt is retired. Pt does not smoke cigarettes or drink ETOH. Pt states no further concerns/needs. CM to follow for any further discharge planning/needs. Advised pt to ask for CM if any further questions/concerns/needs arise, voices understanding. Readmission chart review: 03/23-03/25/22 Pneumothorax s/p R lung bx 04/17/22-current Pancreatic CA, biliary obstruction Pt did not have CM assessment completed during 1st visit d/t weekend admit/Holiday w/e. Pt initially had chest tube placed then removed next morning but pneumo returned and pt had to have chest tube re-inserted during same visit. Pt w/ known pancreatic cancer. Pt also with lung nodule which bx was performed on. Pt now with biliary obstruction and ERCP today with stent placement. Pt Goal: Home Plan[place] GENET OBREGON
[2022-04-18] MEDS: Insulin Lispro 100 UNIT/ML INSULN.PEN SC ×2 (16:46→21:07)
[2022-04-18] MEDS: Insulin Lispro 100 UNIT/ML INSULN.PEN 10 UNIT SC (16:46)
[2022-04-18 17:15] LABS: Bedside Glucose 372 mg/dL (74-106)
[2022-04-18] MEDS: Insulin Glargine-YFGN 100 UNIT/ML Pen 16 UNIT SC (21:06)
[2022-04-18] MEDS: Gabapentin 100 MG Capsule PO (21:11)
[2022-04-18 21:46] LABS: Bedside Glucose 320 mg/dL (74-106)
[2022-04-19] MEDS: oxyCODONE 5 MG Tablet PO ×2 (01:02→10:04)
[2022-04-19 03:00] VITALS: BP 143/71; PULSE 60; RESP 16; TEMP 36.2; O2SAT 100
[2022-04-19 04:14] LABS: Absolute Lymphocyte Count 2.31 X10^3/uL (0.83-4.51); Absolute Neutrophil Count 5.6 X10^3/uL (2.0-7.7); Basophil# 0.03 X10^3/uL; Basophil% 0.3 % (0-1); Eosinophil# 0.07 X10^3/uL; Eosinophils% 0.8 % (0-5); Hematocrit 28.9 % (37-47); Hemoglobin 8.5 g/dL (12.0-15.0); Lymphocyte # 2.31 X10^3/ul (0.83-4.51); Lymphocyte % 26.4 % (19-41); Mean Corp Hgb Conc 29.4 g/dL (32-36); Mean Corpuscular Hgb 24.2 pg (27.0-32.0); Mean Corpuscular Volume 82.3 fL (81-99); Mean Platelet Vol. 10.3 fl (6.2-12.0); Monocyte# 0.71 X10^3/uL; Monocyte% 8.1 % (0-10); NRBC Flagged by Analyzer 0 % (0-5); Neutrophil # 5.59 X10^3/uL (2.7-7.7); Neutrophil % 63.8 % (47-70); Platelet Count 240 K/mm3 (150-450); RBC Distribution Width CV 18.6 % (11.6-14.6); RBC Distribution Width SD 55.5 fl (35.1-43.9); Red Blood Count 3.51 M/mm3 (4.2-5.4); White Blood Count 8.8 K/mm3 (4.4-11.0)
[2022-04-19 05:07] LABS: ALB/GLOB Ratio 0.8 RATIO (0.9-2.4); AST(SGOT) 117 U/L (15-37); Alanine Aminotransfer ALT/SGPT 323 U/L (13-56); Albumin, Serum 2.5 g/dL (3.2-5.0); Alkaline Phosphatase 637 U/L (45-117); Anion Gap 5 (5-15); BUN 10 mg/dL (7-18); BUN/Creat Ratio 19.3 RATIO (10-20); Calcium,Total 8.4 mg/dL (8.5-10.1); Chloride 110 mmol/L (98-107); Creatinine, Serum 0.52 mg/dL (0.55-1.02); EST Glomerular Filtration Rate 125 mL/min (>60); Est Glom Filt Rate - Afr Amer 151 mL/min (>60); Globulin 3.2 g/dL (2.2-4.2); Glucose 198 mg/dL (74-106); Potassium 3.6 mmol/L (3.5-5.1); Protein, Total 5.7 g/dL (6.4-8.2); Sodium Level 141 mmol/L (136-145)
--- NOTE | 2022-04-19 07:58 | DCINST_ITS ---
Discharge Instructions Diet Discharge Diet: Low fat / Low cholesterol Activity Weight Bearing Status: Weight bearing as tolerated Dressing / Incision Call your doctor if you observe: Fever of 101 or Higher, Coldness, Increased P ain, Numbness or Tingling, Change in Color, Inability to urinate, Inability to have a bowel movement, Using more than 1 pad per hour, Shortness of breath, Dizziness, Fainting spells, Swelling in the ankles, Chest pain, Prolonged hiccupping, Increased palpitations (irregular heartbeat), Calf discomfort and Uncontrolled pain Follow Up Care Test Results: Test results from this visit will be discussed in further detail at your follow- up appointment, if applicable. Discharge Plan Admission Admit Date/Time: 04/17/22 16:07 Primary Reason for Your Visit: CBD obstruction by pancreatic mass/cancer Attending Provider: Jerman Baldwin Primary Care Provider: Elbert Calvo Consulting Providers: Vitor Fuentes Discharge Orders/Prescriptions Prescriptions: New levofloxacin 500 mg tablet 500 mg PO DAILY Qty: 2 0RF Continued albuterol sulfate 1 INHALER inhaler 1 puff inhalation PRN PRN (Reason: Sob &/Or Wheezing) oxycodone-acetaminophen 5-325 mg tablet 1 tab PO Q6H PRN (Reason: Pain) Label Comments: Take 1 tablet by mouth every 6 hours as needed for pain for up to 5 days. esomeprazole magnesium 40 mg capsule,delayed release(DR/EC) 40 cap PO DAILY Label Comments: Take 1 capsule by mouth daily before breakfast. 1/2 hr before meal. gabapentin 100 mg capsule 100 cap PO QHS Label Comments: Take 1 capsule by mouth once daily for 30 days. insulin lispro 100 unit/mL insulin pen 10 unit SUBCUT TIDCM insulin glargine [Lantus Solostar U-100 Insulin] 100 unit/mL (3 mL) insulin pen 16 ea SUBCUT BID aspirin 81 mg tablet,chewable 81 mg PO BREAKFAST naproxen 500 mg Tablet 500 mg PO BID PRN (Reason: Pain) Referrals / Follow Up: Elbert Calvo MD [Primary Care Provider] - Friend,DO Dajuan [Med Staff - Active Staff] - Within 2 Weeks (FOR Biliary stent ) Disposition Disposition (needs filled in before D/C Order can be placed): Home, Self Care
--- NOTE | 2022-04-19 07:58 | PCM.DC.SUM ---
Providers Date of Admission: 04/17/22 Date of Discharge: 04/19/22 Primary Care Physician: Dr. Elbert Calvo MD Consultations 04/17/22 17:39 Consult: Gastroenterology Routine Consulting Provider: [facility] Reason for Consult: Panc head cancer with dilated ducts needs stent EMERGENT Consult: No MD Notified: Yes Date Notified: 04/17/22 Time Notified: 16:29 Method of Notification: ED Physician Initiated Reason For Visit: PANCREATIC CANCER, BILARY OBSTRUCTION Diagnosis Discharge Diagnosis (1) Pancreatic cancer: Status: Acute Code(s): C25.9 - Malignant neoplasm of pancreas, unspecified (2) Elevated LFTs: Status: Acute Code(s): R79.89 - Other specified abnormal findings of blood chemistry Plan This 71-year-old female diagnosed with pancreatic cancer in August 2021 had 5 cycles of chemotherapy 1. Pancreatic cancer with enlargement of the head of the pancreas and dilated intrahepatic and extrahepatic biliary ducts -Admit to [facility]. GI was consulted. Patient had ERCP with biliary sphincterotomy, drainage of sludge and debris and temporary stent placed. Biopsy taken. -Earlier hospitalist discussed with patient's oncologist Dr. Rhodes. Monitor CBC and CMP every day. -Normal saline 100 mL/h -IV Zofran and morphine ordered for nausea and pain 2. Elevated LFTs -Likely elevated secondary to dilated biliary ducts/biliary obstruction due to pancreatic cancer -Dr. Cox consulted 3. Diabetes mellitus type 2 with neuropathy -ACH S blood sugars are sliding scale insulin ordered -continue patient's home regimen of short and long-acting insulin -Continue gabapentin DVT prophylaxis-SCDs Medications at Discharge Home Medications albuterol sulfate 90 mcg/actuation aerosol inhaler 1 puff inhalation PRN PRN Sob &/Or Wheezing 10/08/19 aspirin 81 mg chewable tablet 81 mg PO BREAKFAST heart 03/23/22 esomeprazole magnesium 40 mg capsule,delayed release 40 cap PO DAILY acid reflux 03/23/22 gabapentin 100 mg capsule 100 cap PO QHS nerve pain 03/23/22 insulin glargine 100 unit/mL (3 mL) subcutaneous pen (Lantus Solostar U-100 Insulin) 16 ea subcut BID blood sugar 03/23/22 insulin lispro 100 unit/mL subcutaneous pen 10 unit subcut TIDCM blood sugar 03/23/22 oxycodone-acetaminophen 5 mg-325 mg tablet 1 tab PO Q6H PRN Pain 03/23/22 naproxen 500 mg tablet 500 mg PO BID PRN Pain 04/17/22 levofloxacin 500 mg tablet 500 mg PO DAILY #2 tabs 04/19/22 Hospital Course Summary of Care Provided Hospital Course: This 71-year-old female diagnosed with pancreatic cancer in August 2021 had 5 cycles of chemotherapy, completed in February 2022 1.? Pancreatic cancer with enlargement of the head of the pancreas and dilated intrahepatic and extrahepatic biliary ducts -Admit to [facility].? GI was consulted.? Patient had ERCP with biliary sphincterotomy, drainage of sludge and debris and temporary stent placed.? Biopsy taken. -Earlier hospitalist discussed with patient's oncologist Dr. Rhodes.? Monitor CBC and CMP every day. -Normal saline 100 mL/h -IV Zofran and morphine. Patient had 3 doses of IV Levaquin and prescription given for 2 more doses to complete a 5 days of antibiotic. 2.? Acute liver injury due to obstructed bile duct from pancreatic cancer -Liver chemistry ALT AST in 500. Alkaline phos 153. TB 2.5, DB 1.76. Repeat liver chemistry shows improvement in ALT AST alkaline phosphatase. Total bilirubin normal 0.8. Obstructive jaundice. -Dr. Friend consulted. 3.? Diabetes mellitus type 2 with neuropathy -ACH S blood sugars are sliding scale insulin ordered -continue patient's home regimen of short and long-acting insulin -Continue gabapentin DVT prophylaxis-SCDs Discharge medication reconciliation done. Discharge follow-up instructions completed. Discharge process discussed with the patient and all questions were answered to patient's satisfaction. Total time spent, exact 35 minutes on discharge meds reconciliation, examination, coordination of care with nurses and ancillary staff, review of imaging and blood test and discussion with the patient on follow-up instructions. Physical Exam Narrative Physical exam General: Alert, Oriented x3, Cooperative HEENT: Atraumatic, PERRLA, EOMI, Normocephalic, icterus improved Oral: No Gingival or Mucosal Lesions/ Ulcerations Neck: Supple, No JVD, Negative Carotid Bruits Lungs: Air entry diminished in bilateral lung bases. No crepitation/rhonchi Cardiovascular: Regular rate, Regular Rhythm, Normal S1, Normal S2, No murmurs Abdomen: Bowel Sounds Present, Soft, Non Tender, Non-Distended : No renal angle tenderness. No suprapubic tenderness. Extremities: No edema, Capillary Refill Less than 3 Seconds Skin: No rashes, No breakdown Musculoskeletal: No Tenderness to Palpation of Joints or Extremities Neurological: Cranial nerves II-XII grossly intact, DTR 2+/4 and Symmetrical, Neuro grossly intact Psych/Mental Status: Normal Affect, Appropriate. Weight / BMI Weight Weight: 127 lb 3.307 oz Body Mass Index (BMI) 21.2 ABG / Lab / Microbiology Data Result Diagrams: 04/19/22 04:04 04/19/22 04:04 Laboratory: Laboratory Results - last 24 hr 04/18/22 16:45: POC Glucose 372 H 04/18/22 21:05: POC Glucose 320 H 04/19/22 04:04: Sodium 141, Potassium 3.6, Chloride 110 H, Carbon Dioxide 26.0, Anion Gap 5, BUN 10, Creatinine 0.52 L, Estim Creat Clear Calc 47.10, Est GFR (MDRD) Af Amer 151, Est GFR (MDRD) Non-Af 125, BUN/Creatinine Ratio 19.3, Glucose 198 H, Calcium 8.4 L, Total Bilirubin 0.80, AST 117 H, ALT 323 H, Alkaline Phosphatase 637 H, Total Protein 5.7 L, Albumin 2.5 L, Globulin 3.2, Albumin/Globulin Ratio 0.8 L 04/19/22 04:04: WBC 8.8, RBC 3.51 L, Hgb 8.5 L, Hct 28.9 L, MCV 82.3, MCH 24.2 L, MCHC 29.4 L, RDW Std Deviation 55.5 H, RDW Coeff of Williams 18.6 H, Plt Count 240, MPV 10.3, Immature Gran % (Auto) 0.600, Neut % (Auto) 63.8, Lymph % (Auto) 26.4, [place] % (Auto) 8.1, Eos % (Auto) 0.8, Baso % (Auto) 0.3, Absolute Neuts (auto) 5.6, Absolute Lymphs (auto) 2.31, Nucleated RBC % 0 Meaningful Use Info Meaningful Use Diagnoses (Choose all that apply): None applicable Discharge Plan Admission Admit Date/Time: 04/17/22 16:07 Primary Reason for Your Visit: CBD obstruction by pancreatic mass/cancer Attending Provider: Jerman Baldwin Primary Care Provider: Elbert Calvo Consulting Providers: Vitor Fuentes Discharge Orders/Prescriptions Prescriptions: New levofloxacin 500 mg tablet 500 mg PO DAILY Qty: 2 0RF Continued albuterol sulfate 1 INHALER inhaler 1 puff inhalation PRN PRN (Reason: Sob &/Or Wheezing) oxycodone-acetaminophen 5-325 mg tablet 1 tab PO Q6H PRN (Reason: Pain) Label Comments: Take 1 tablet by mouth every 6 hours as needed for pain for up to 5 days. esomeprazole magnesium 40 mg capsule,delayed release(DR/EC) 40 cap PO DAILY Label Comments: Take 1 capsule by mouth daily before breakfast. 1/2 hr before meal. gabapentin 100 mg capsule 100 cap PO QHS Label Comments: Take 1 capsule by mouth once daily for 30 days. insulin lispro 100 unit/mL insulin pen 10 unit SUBCUT TIDCM insulin glargine [Lantus Solostar U-100 Insulin] 100 unit/mL (3 mL) insulin pen 16 ea SUBCUT BID aspirin 81 mg tablet,chewable 81 mg PO BREAKFAST naproxen 500 mg Tablet 500 mg PO BID PRN (Reason: Pain) Referrals / Follow Up: Dajuan Cox DO [Med Staff - Active Staff] - Within 2 Weeks (FOR Biliary stent ) Elbert Calvo MD [Primary Care Provider] - Disposition Disposition (needs filled in before D/C Order can be placed): Home, Self Care Charges/Coding Visit Charges Inpatient E&M: 90858 Disch Hosp
[2022-04-19 08:41] LABS: Bedside Glucose 219 mg/dL (74-106)
[2022-04-19 09:00] VITALS: BP 140/60; PULSE 60; RESP 16; TEMP 36.6; O2SAT 100
[2022-04-19] MEDS: Insulin Lispro 100 UNIT/ML INSULN.PEN SC (09:24)
[2022-04-19] MEDS: Insulin Lispro 100 UNIT/ML INSULN.PEN 10 UNIT SC (09:24)
[2022-04-19] MEDS: Insulin Glargine-YFGN 100 UNIT/ML Pen 16 UNIT SC (09:25)
[2022-04-19] MEDS: levoFLOXacin IV 500 MG/100 ML BAG 100 MG IV (09:26)
[2022-04-19] MEDS: Pantoprazole Sodium 40 MG Tablet PO (09:26)
[2022-04-19] MEDS: Ondansetron 4 MG/2 ML Vial IV (10:03)
[2022-04-19] MEDS: 0.9% Saline Lock 10 ML Syringe IV (10:04)
[2022-04-19] MEDS: 0.9% Normal Saline 1,000 ML 100 ML IV (10:38)
--- NOTE | 2022-04-19 14:49 | PCM.PROGNOTE ---
Subjective Subjective Patient underwent an ERCP yesterday for obstruction at the level of the pancreatic head. She tolerated the procedure without any problems. She is tolerating a normal diet without any abdominal pain. Objective Data Objective Data Vital Signs: Vital Signs Temp Pulse Resp BP Pulse Ox O2 Del Method 97.8 F 60 16 140/60 H 100 Room Air 04/19/22 09:00 04/19/22 09:00 04/19/22 09:00 04/19/22 09:00 04/19/22 09:00 04/19/22 09:00 Oxygen Delivery Method Room Air Weight: 127 lb 3.307 oz Body Mass Index (BMI) 21.2 Intake & Output: Intake and Output for Last 24 Hours 04/17/22 04/18/22 04/19/22 23:59 23:59 23:59 Intake Total 746.67 / 746.67 5456.67 / 5456.67 1999 Output Total 0 / 0 4 / 4 Balance 746.67 / 746.67 5456.67 / 5456.67 1995 Lab / Micro Data Result Diagrams: 04/19/22 04:04 04/19/22 04:04 Labs: Laboratory Results - last 24 hr 04/18/22 16:45: POC Glucose 372 H 04/18/22 21:05: POC Glucose 320 H 04/19/22 04:04: Sodium 141, Potassium 3.6, Chloride 110 H, Carbon Dioxide 26.0, Anion Gap 5, BUN 10, Creatinine 0.52 L, Estim Creat Clear Calc 47.10, Est GFR (MDRD) Af Amer 151, Est GFR (MDRD) Non-Af 125, BUN/Creatinine Ratio 19.3, Glucose 198 H, Calcium 8.4 L, Total Bilirubin 0.80, AST 117 H, ALT 323 H, Alkaline Phosphatase 637 H, Total Protein 5.7 L, Albumin 2.5 L, Globulin 3.2, Albumin/Globulin Ratio 0.8 L 04/19/22 04:04: WBC 8.8, RBC 3.51 L, Hgb 8.5 L, Hct 28.9 L, MCV 82.3, MCH 24.2 L, MCHC 29.4 L, RDW Std Deviation 55.5 H, RDW Coeff of Williams 18.6 H, Plt Count 240, MPV 10.3, Immature Gran % (Auto) 0.600, Neut % (Auto) 63.8, Lymph % (Auto) 26.4, [place] % (Auto) 8.1, Eos % (Auto) 0.8, Baso % (Auto) 0.3, Absolute Neuts (auto) 5.6, Absolute Lymphs (auto) 2.31, Nucleated RBC % 0 04/19/22 08:04: POC Glucose 219 H Radiography Diagnostic Testing: Radiology Impression ERCP X-Ray 04/18/22 11:30 IMPRESSION: Intrahepatic biliary ductal dilatation. Biliary stent was placed. Electronically Signed: Milan Orozco MD at 8:34 EDT , Physical Exam Narrative Physical exam General: Alert, Oriented x3, Cooperative HEENT: Atraumatic, PERRLA, EOMI, Normocephalic, icterus improved Oral: No Gingival or Mucosal Lesions/ Ulcerations Neck: Supple, No JVD, Negative Carotid Bruits Lungs: Air entry diminished in bilateral lung bases. No crepitation/rhonchi Cardiovascular: Regular rate, Regular Rhythm, Normal S1, Normal S2, No murmurs Abdomen: Bowel Sounds Present, Soft, Non Tender, Non-Distended : No renal angle tenderness. No suprapubic tenderness. Extremities: No edema, Capillary Refill Less than 3 Seconds Skin: No rashes, No breakdown Musculoskeletal: No Tenderness to Palpation of Joints or Extremities Neurological: Cranial nerves II-XII grossly intact, DTR 2+/4 and Symmetrical, Neuro grossly intact Psych/Mental Status: Normal Affect, Appropriate. Assessment & Plan Assessment/Plan (1) Pancreatic cancer: PLAN: ERCP status post sphincterotomy with balloon dilation and stent placement into the common bile duct. LFTs are improving along with liver enzymes. She is doing well. She will need to complete a 7-day course of Levaquin therapy. She will follow-up in office in 2 weeks. Charges/Coding Visit Charges Inpatient E&M: 45612 Subs Hosp L2
== END 2022-04-19 13:23 | disposition home or self-care (01) | DRG 444 ==
LOC: ED 15:54 → MS3 16:30 → PCU 04-18 06:39
PROVIDERS: Internal Medicine Gastroenterology; Admitting Provider Family Medicine; Emergency Provider Emergency Medicine; PCP Internal Medicine; Visit Provider Internal Medicine
PROC: (CPT 43260; principal; 2022-04-18 10:50)
DX: K83.1 Obstruction of bile duct (principal); C25.9 Malignant neoplasm of pancreas, unspecified; J44.9 Chronic obstructive pulmonary disease, unspecified; E11.40 Type 2 diabetes mellitus with diabetic neuropathy, unspecified; Z79.4 Long term (current) use of insulin; K72.00 Acute and subacute hepatic failure without coma; I10 Essential (primary) hypertension; M48.02 Spinal stenosis, cervical region; Z86.73 Personal history of transient ischemic attack (TIA), and cerebral infarction without residual deficits; Z90.49 Acquired absence of other specified parts of digestive tract; Z79.82 Long term (current) use of aspirin; Z79.899 Other long term (current) drug therapy; Z87.19 Personal history of other diseases of the digestive system; Z92.21 Personal history of antineoplastic chemotherapy; K59.00 Constipation, unspecified
CPT/HCPCS: 43264; 43274; 00732; 36591; 71045; 74177; 74328; 76000; 80048; 80053; 80076; 82962; 84484; 85025; 85379; 85610; 85730; 88108; 88304; 88305; 88313; 93005; 96361; 96365; 96366; 96375; 97802; 99221; 99285; J7030; Q9967; A4216; G0378; J2405

== ENCOUNTER 2022-04-26 08:25 | Emergency (ER) | payer MEDICARE, SELFPAY ==
[2022-04-26 08:26] VITALS: BP 137/55; PULSE 73; RESP 18; TEMP 37.2; O2SAT 100; BMI 21.6
--- NOTE | 2022-04-26 08:53 | EKG12_ITS ---
Test Reason : chest pressure Blood Pressure : / mmHG Vent. Rate : 073 BPM Atrial Rate : 073 BPM P-R Int : 110 ms QRS Dur : 090 ms QT Int : 414 ms P-R-T Axes : 030 057 053 degrees QTc Int : 456 ms Sinus rhythm with short IN Otherwise normal ECG Confirmed by CORNELIO ARVIZU, HARPREET ([id number]), newspaper editor JUSTIN PULIDO ([id number]) on 04/27/2022 10:20:12 AM Referred By: Milind Confirmed By:HARPREET GRIMES MD
--- NOTE | 2022-04-26 08:55 | EDS_ITS ---
HPI History of Present Illness Chief Complaint: Shortness of Breath Informant: patient Narrative Narrative: Patient here with multiple complaints. Reports 1230 last evening getting ready for bed felt like she was going to have a heart attack. Lasted for 30 minutes. Has felt discomfort left chest. History of hiatal hernia however states it felt different. In addition this morning as she woke up 730 blood glucose check 104 she is a diabetic she gave herself her normal sliding scale of 10 units she ate her normal breakfast. Prior to arrival sudden sweatiness, there is no chest pains at that time. She reports she ate a lifesavers before coming here. Sw eatiness has resolved. No vomiting or diarrhea. States on the way here increasing dyspnea there is no cough. She states she felt like she could pass out with heavy breathing. She is diagnosed with pancreatic cancer this past September followed by Dr. Rhodes. Reports chemo was stopped earlier in March in preparations for Whipple's procedure next week at [facility]. No history of PE or DVT. Reports 3 weeks ago a lung biopsy causing a right-sided pneumothorax with chest tubes placed x2 due to recurrence after first removal. Prior similar symptoms: No PFSH PFSH Medical History (Updated 04/26/22 @ 11:[address] Denys Caro, DO) Asthma Cervical spinal stenosis COPD (chronic obstructive pulmonary disease) Diabetes Headache Hiatal hernia History of diverticulitis History of pancreatitis Hypertension Pancreatic cancer Paresthesia of right upper extremity Home Medications albuterol sulfate 90 mcg/actuation aerosol inhaler 1 puff inhalation PRN PRN Sob &/Or Wheezing 10/08/19 [History Last Taken 04/19/21] aspirin 81 mg chewable tablet 81 mg PO BREAKFAST heart 03/23/22 [History Last Taken 03/22/22] esomeprazole magnesium 40 mg capsule,delayed release 40 cap PO DAILY acid reflux 03/23/22 [History Last Taken 04/17/22] gabapentin 100 mg capsule 100 cap PO QHS nerve pain 03/23/22 [History Last Taken 04/16/22] insulin glargine 100 unit/mL (3 mL) subcutaneous pen (Lantus Solostar U-100 Insulin) 16 ea subcut BID blood sugar 03/23/22 [History Last Taken 03/22/22] insulin lispro 100 unit/mL subcutaneous pen 10 unit subcut TIDCM blood sugar 03/23/22 [History Last Taken 03/23/22] oxycodone-acetaminophen 5 mg-325 mg tablet 1 tab PO Q6H PRN Pain 03/23/22 [History Last Taken Unknown] naproxen 500 mg tablet 500 mg PO BID PRN Pain 04/17/22 [History Last Taken 04/16/22] levofloxacin 500 mg tablet 500 mg PO DAILY #2 tabs 04/19/22 [Rx Last Taken Un known] Allergy/AdvReac Type Severity Reaction Status Date / Time No Known Allergies Allergy Verified 04/26/22 08:26 Family History Father CVA (cerebral vascular accident) Brother CVA (cerebral vascular accident) Other Asthma Surgical History History of cholecystectomy History of esophagogastroduodenoscopy (EGD) History of tubal ligation Social History Smoking Status: Never smoker alcohol intake: current details: infrequent substance use type: does not use ROS ROS ED Constitutional Constitutional ED: Denies chills, fever(s) or sweats Eyes Eyes: Denies change in vision ENT ENT ED: Denies dysphagia or sore throat Cardiovascular Cardiovascular: Reports chest pain; Denies leg edema, palpitations or racing heartbeat Respiratory/Chest Respiratory/Chest: Reports dyspnea; Denies cough or dyspnea on exertion Gastrointestinal Gastrointestinal: Denies abdominal pain, diarrhea, nausea or vomiting Genitourinary Genitourinary ED: Denies dysuria, hematuria or urinary frequency Musculoskeletal Musculoskeletal: Denies back pain, extremity pain or neck pain Integumentary Denies rash or wounds Neurologic Neurologic: Denies headache(s), paresthesias or weakness EXAM Physical Exam Const Vital Signs: 04/26/22 08:26 04/26/22 09:24 04/26/22 09:24 Temperature 99 F 99.0 F Temperature Source Temporal Temporal Pulse Rate 73 80 Respiratory Rate 18 17 Respiratory Effort Short of Breath Blood Pressure 137/55 H 118/75 Blood Pressure Mean 82 89 Pulse Ox 100 99 Oxygen Delivery Method Room Air Room Air Room Air 04/26/22 11:03 Temperature Temperature Source Pulse Rate 74 Respiratory Rate 15 Respiratory Effort Blood Pressure 130/69 H Blood Pressure Mean Pulse Ox 98 Oxygen Delivery Method Positive well nourished and well developed General Appearance ED: well developed and NAD HEENT Reports moist mucous membranes normocephalic and atraumatic Eyes PERRL, EOMs intact bilaterally and conjunctivae normal General Eye ED: Yes normal appearance of both eyes Neck no lymphadenopathy and supple General: Negative for tenderness Chest Wall Chest Narrative: Right upper chest Mediport, 2 anterior chest scars. Chest: Negative for tenderness Resp normal respiratory effort and normal air movement Effort and Inspection: symmetric chest movement; Negative for respiratory distress Cardio regular rate, regular rhythm and no murmurs Peripheral Pulses: pulses 2+ throughout GI normal to inspection, nondistended, normoactive bowel sounds and non-tender Palpation: Negative for guarding or rebound tenderness present Back/Spine no CVA tenderness and no thoracic nor lumbar tenderness Extremity normal to inspection General Extremety ED: Negative for edema or tenderness General Extremity: Negative for edema Neuro oriented x3 and no sensory deficits noted Sensorium / Orientation: awake and alert Skin no rashes or lesions noted and no wounds MDM MDM MDM Narrative Medical decision making narrative: Chest pain resolved since last night. Symmetric breath sounds on exam. Vitals are stable. With her chest pains yesterday cardiac work-up. With her increasing dyspnea will check D-dimer with a normal pulse ox. Blood glucose at 75, will give orange juice due to insulin being taken 90 minutes ago. Cardiac work-up negative D-dimer negative. Troponin negative symptoms occurred more than 9 hours prior to symptoms less likely cardiac in nature. Two-view chest x-ray reviewed by myself read by radiology shows no acute process. Vitals remained stable. Heart score is a 3. Labs noted stable chronic anemia. Symptoms remain resolved on reevaluation. She is discharged with outpatient follow-up. Return precautions. All questions were answered. Lab Data Attestation: I reviewed the patient's lab results. Labs: Laboratory Results - last 24 hr 04/26/22 04/26/22 04/26/22 08:52 09:17 09:17 WBC 4.7 RBC 3.63 L Hgb 9.0 L Hct 31.0 L MCV 85.4 MCH 24.8 L MCHC 29.0 L RDW Std Deviation 54.5 H RDW Coeff of Williams 17.4 H Plt Count 256 MPV 10.1 Immature Gran % (Auto) 0.600 Neut % (Auto) 64.5 Lymph % (Auto) 20.4 [place] % (Auto) 10.2 H Eos % (Auto) 3.4 Baso % (Auto) 0.9 Absolute Neuts (auto) 3.0 Absolute Lymphs (auto) 0.96 Nucleated RBC % 0 D-Dimer Quant (PE/DVT) 0.33 Sodium Potassium Chloride Carbon Dioxide Anion Gap BUN Creatinine Estim Creat Clear Calc Est GFR (MDRD) Af Amer Est GFR (MDRD) Non-Af BUN/Creatinine Ratio Glucose Calcium Troponin I High Sens POC Glucose 75 04/26/22 09:17 WBC RBC Hgb Hct MCV MCH MCHC RDW Std Deviation RDW Coeff of Williams Plt Count MPV Immature Gran % (Auto) Neut % (Auto) Lymph % (Auto) [place] % (Auto) Eos % (Auto) Baso % (Auto) Absolute Neuts (auto) Absolute Lymphs (auto) Nucleated RBC % D-Dimer Quant (PE/DVT) Sodium 141 Potassium 3.4 L Chloride 110 H Carbon Dioxide 26.0 Anion Gap 5 BUN 17 Creatinine 0.61 Estim Creat Clear Calc 47.10 Est GFR (MDRD) Af Amer 124 Est GFR (MDRD) Non-Af 102 BUN/Creatinine Ratio 27.7 H Glucose 147 H Calcium 8.4 L Troponin I High Sens 4 POC Glucose Radiography Diagnostic Testing: Clinical Impression(s) from Imaging Studies Chest X-Ray 04/26/22 09:49 IMPRESSION: No acute cardiopulmonary abnormality. No interval change. Electronically Signed: Robin Vee MD at 10:29 EDT Reading Location ID and State: [facility] / [place] Tel , Service support , EKG Initial EKG: Attestation: I personally reviewed and interpreted this EKG as follows: Comments: EKG sinus rate of 73, no ST or T wave changes. Discharge Plan Triage Chief Complaint: Shortness of Breath ED Provider: Denys Caro Dx/Rx/DC Orders Clinical Impression: Chest pain, Pancreatic cancer, Acute dyspnea, History of diabetes mellitus, Anemia Instructions: ED Chest Pain, Uncertain Cause, ED Dyspnea Prescriptions: No Action albuterol sulfate 1 INHALER inhaler 1 puff inhalation PRN PRN (Reason: Sob &/Or Wheezing) oxycodone-acetaminophen 5-325 mg tablet 1 tab PO Q6H PRN (Reason: Pain) Label Comments: Take 1 tablet by mouth every 6 hours as needed for pain for up to 5 days. esomeprazole magnesium 40 mg capsule,delayed release(DR/EC) 40 cap PO DAILY Label Comments: Take 1 capsule by mouth daily before breakfast. 1/2 hr before meal. gabapentin 100 mg capsule 100 cap PO QHS Label Comments: Take 1 capsule by mouth once daily for 30 days. insulin lispro 100 unit/mL insulin pen 10 unit SUBCUT TIDCM insulin glargine [Lantus Solostar U-100 Insulin] 100 unit/mL (3 mL) insulin pen 16 ea SUBCUT BID aspirin 81 mg tablet,chewable 81 mg PO BREAKFAST naproxen 500 mg Tablet 500 mg PO BID PRN (Reason: Pain) levofloxacin 500 mg tablet 500 mg PO DAILY Qty: 2 0RF Primary Care Provider: Elbert Calvo Referrals: Elbert Calvo MD [Primary Care Provider] - 3-5 Days Activity Restrictions/Additional Instructions: Cardiac work-up negative. D-dimer negative. Chest x-ray negative. Disposition Disposition: Home, Self Care Discharge Date/Time: 04/26/22 11:10
[2022-04-26 09:16] LABS: Bedside Glucose 75 mg/dL (74-106)
[2022-04-26 09:24] VITALS: BP 118/75; PULSE 80; RESP 17; TEMP 37.2; O2SAT 99
[2022-04-26 09:29] LABS: Absolute Lymphocyte Count 0.96 X10^3/uL (0.83-4.51); Basophil# 0.04 X10^3/uL; Basophil% 0.9 % (0-1); Eosinophil# 0.16 X10^3/uL; Eosinophils% 3.4 % (0-5); Lymphocyte # 0.96 X10^3/ul (0.83-4.51); Lymphocyte % 20.4 % (19-41); Mean Corpuscular Hgb 24.8 pg (27.0-32.0); Mean Corpuscular Volume 85.4 fL (81-99); Mean Platelet Vol. 10.1 fl (6.2-12.0); Monocyte# 0.48 X10^3/uL; Monocyte% 10.2 % (0-10); NRBC Flagged by Analyzer 0 % (0-5); Neutrophil # 3.03 X10^3/uL (2.7-7.7); Neutrophil % 64.5 % (47-70); Platelet Count 256 K/mm3 (150-450); RBC Distribution Width CV 17.4 % (11.6-14.6); RBC Distribution Width SD 54.5 fl (35.1-43.9); Red Blood Count 3.63 M/mm3 (4.2-5.4); White Blood Count 4.7 K/mm3 (4.4-11.0)
[2022-04-26 09:41] LABS: D-Dimer Quantitative (DVT/PE) 0.33 FEU/ug/m (0.27-0.49)
[2022-04-26 09:46] LABS: Anion Gap 5 (5-15); BUN 17 mg/dL (7-18); BUN/Creat Ratio 27.7 RATIO (10-20); Calcium,Total 8.4 mg/dL (8.5-10.1); Chloride 110 mmol/L (98-107); Creatinine, Serum 0.61 mg/dL (0.55-1.02); EST Glomerular Filtration Rate 102 mL/min (>60); Est Glom Filt Rate - Afr Amer 124 mL/min (>60); Glucose 147 mg/dL (74-106); Potassium 3.4 mmol/L (3.5-5.1); Sodium Level 141 mmol/L (136-145); Troponin-I HS (w/2H Reflex) 4 pg/mL (3.0-54.0)
--- NOTE | 2022-04-26 09:49 | RAD_ITS ---
EXAM: XR CHEST, 2 VIEWS CLINICAL INDICATION: sob TECHNIQUE: Frontal and lateral views of the chest. This report was created using [employer] report generation technology. COMPARISON: XR Chest dated 04/17/2022 FINDINGS: LUNGS AND PLEURAL SPACES: Normal. No consolidation or edema. No pneumothorax. No effusion. HEART: Normal. Normal heart size. MEDIASTINUM: Small hiatal hernia again noted. BONES/JOINTS: Normal. SOFT TISSUES: Normal. TUBES, LINES AND DEVICES: Right internal jugular central venous catheter tip in the distal superior vena cava. RAD/Chest PA and Lateral IMPRESSION: No acute cardiopulmonary abnormality. No interval change. Electronically Signed: Robin Vee MD at 10:29 EDT ,
[2022-04-26 11:03] VITALS: BP 130/69; PULSE 74; RESP 15; O2SAT 98
[2022-04-26 11:27] LABS: Reflex Troponin-HS? (from REC) Y
== END 2022-04-26 11:10 | disposition home or self-care (01) ==
PROVIDERS: Emergency Provider Emergency Medicine; PCP Internal Medicine; Visit Provider Emergency Medicine
DX: R07.9 Chest pain, unspecified (principal); C25.9 Malignant neoplasm of pancreas, unspecified; R06.00 Dyspnea, unspecified; D64.9 Anemia, unspecified
CPT/HCPCS: 36591; 71046; 80048; 82962; 84484; 85025; 85379; 93005; 99285

== ENCOUNTER 2022-06-13 19:24 | Observation (INO) | payer MEDICARE, SELFPAY ==
[2022-06-13 19:26] VITALS: BP 133/103; PULSE 85; RESP 16; TEMP 36.4; O2SAT 100; BMI 20.5
[2022-06-13] MEDS: 0.9% Normal Saline 1,000 ML 1000 ML IV (20:43)
[2022-06-13] MEDS: Morphine 4 MG/ML Syringe IV (20:45)
[2022-06-13] MEDS: proCHLORPERazine 10 MG/2 ML Vial 5 MG IV (20:46)
[2022-06-13 20:51] LABS: Absolute Neutrophil Count 4.5 X10^3/uL (2.0-7.7); Basophil# 0.04 X10^3/uL; Basophil% 0.6 % (0-1); Eosinophil# 0.09 X10^3/uL; Eosinophils% 1.3 % (0-5); Hematocrit 41.1 % (37-47); Hemoglobin 12.9 g/dL (12.0-15.0); Lymphocyte % 14.9 % (19-41); Mean Corp Hgb Conc 31.4 g/dL (32-36); Mean Corpuscular Hgb 26.3 pg (27.0-32.0); Mean Corpuscular Volume 83.9 fL (81-99); Mean Platelet Vol. 9.6 fl (6.2-12.0); Monocyte# 1.03 X10^3/uL; Monocyte% 15.4 % (0-10); NRBC Flagged by Analyzer 0 % (0-5); Neutrophil # 4.51 X10^3/uL (2.7-7.7); Neutrophil % 67.4 % (47-70); POSITIVE MORPHOLOGY YES; Platelet Count 203 K/mm3 (150-450); RBC Distribution Width CV 20.6 % (11.6-14.6); RBC Distribution Width SD 62.8 fl (35.1-43.9); White Blood Count 6.7 K/mm3 (4.4-11.0)
[2022-06-13 20:53] LABS: Differential Indicated SCAN CRITERIA MET
[2022-06-13 21:08] LABS: ALB/GLOB Ratio 0.8 RATIO (0.9-2.4); AST(SGOT) 24 U/L (15-37); Alanine Aminotransfer ALT/SGPT 40 U/L (13-56); Albumin, Serum 3.1 g/dL (3.2-5.0); Alkaline Phosphatase 175 U/L (45-117); Anion Gap 14 (5-15); BUN 20 mg/dL (7-18); BUN/Creat Ratio 31.5 RATIO (10-20); Chloride 98 mmol/L (98-107); Creatinine, Serum 0.64 mg/dL (0.55-1.02); EST Glomerular Filtration Rate 98 mL/min (>60); Est Glom Filt Rate - Afr Amer 119 mL/min (>60); Estimated Creatinine Clearance 46.11 ml/min; Globulin 3.8 g/dL (2.2-4.2); Glucose 239 mg/dL (74-106); Lipase 32 U/L (73-393); Potassium 3.5 mmol/L (3.5-5.1); Protein, Total 6.9 g/dL (6.4-8.2); Sodium Level 136 mmol/L (136-145)
[2022-06-13 21:11] LABS: Anisocytosis 1+; Platelet Estimate ADEQUATE (ADEQ); Red Cell Morphology N CHROM NORMAL (NORM C&C)
--- NOTE | 2022-06-13 21:15 | EDS_ITS ---
HPI History of Present Illness Chief Complaint: Nausea/Vomiting/Diarrhea Informant: patient Narrative Narrative: Patient is a 71-year-old female with history of insulin-dependent diabetes mellitus as well as pancreatic cancer currently on radiation as well as chem otherapy presenting with concerns for dehydration, nausea, vomiting and diarrhea. Patient states she follows with Dr. Rhodes as well as Dr. Anaya at . She has Compazine and Zofran at home which not been helping. She normally also takes Imodium to help with her diarrhea. She stopped able to take anything for the past 2 days. She had her last chemotherapy a week ago and her last radiation on Saturday of this week (2 days ago). She states she cannot lay down for her radiation because her nausea is so bad. She is normally on oxycodone as well as a muscle relaxer for her pain. She states that I cannot do this anymore. She states she does not want to pursue treatment anymore. She is not ready for hospice but is interested in palliative medicine. No other complaints at this time. [facility] Medical History Asthma Cervical spinal stenosis COPD (chronic obstructive pulmonary disease) Diabetes Dyspnea Elevated LFTs Headache Hiatal hernia History of diverticulitis History of pancreatitis Hypertension Pancreatic cancer Pancreatic cancer Paresthesia of right upper extremity Home Medications albuterol sulfate 90 mcg/actuation aerosol inhaler 1 puff inhalation PRN PRN Sob &/Or Wheezing 10/08/19 [History Last Taken 04/19/21] aspirin 81 mg chewable tablet 81 mg PO BREAKFAST heart 03/23/22 [History Last Taken 03/22/22] esomeprazole magnesium 40 mg capsule,delayed release 40 cap PO DAILY acid reflux 03/23/22 [History Last Taken 04/17/22] gabapentin 100 mg capsule 100 cap PO QHS nerve pain 03/23/22 [History Last Taken 04/16/22] insulin glargine 100 unit/mL (3 mL) subcutaneous pen (Lantus Solostar U-100 Insulin) 16 ea subcut BID blood sugar 03/23/22 [History Last Taken 03/22/22] insulin lispro 100 unit/mL subcutaneous pen 10 unit subcut TIDCM blood sugar 03/23/22 [History Last Taken 03/23/22] oxycodone-acetaminophen 5 mg-325 mg tablet 1 tab PO Q6H PRN Pain 03/23/22 [History Last Taken Unknown] naproxen 500 mg tablet 500 mg PO BID PRN Pain 04/17/22 [History Last Taken 04/16/22] levofloxacin 500 mg tablet 500 mg PO DAILY #2 tabs 04/19/22 [Rx Last Taken Unknown] Allergy/AdvReac Type Severity Reaction Status Date / Time No Known Allergies Allergy Verified 06/13/22 19:28 Family History Father CVA (cerebral vascular accident) Brother CVA (cerebral vascular accident) Other Asthma Surgical History History of cholecystectomy History of esophagogastroduodenoscopy (EGD) History of tubal ligation Social History Smoking Status: Never smoker alcohol intake: current details: infrequent substance use type: does not use ROS ROS ED Constitutional Constitutional ED: Denies chills or fever(s) Eyes Eyes: Denies change in vision ENT ENT ED: Denies sore throat Cardiovascular Cardiovascular: Denies chest pain Respiratory/Chest Respiratory/Chest: Denies cough or dyspnea Gastrointestinal Gastrointestinal: Reports abdominal pain, diarrhea, nausea and vomiting Genitourinary Genitourinary ED: Denies dysuria or hematuria Musculoskeletal Musculoskeletal: Reports back pain; Denies arthralgias or myalgias Integumentary Denies rash Neurologic Neurologic: Reports weakness; Denies headache(s) Psychiatric Psychiatric: Denies anxiety Hematologic/Lymphatic Hematologic/Lymphatic: Denies easy bleeding or easy bruising EXAM Physical Exam Const Vital Signs: 06/13/22 19:26 Temperature 97.5 F L Temperature Source Temporal Pulse Rate 85 Respiratory Rate 16 Blood Pressure 133/103 H Blood Pressure Mean 113 Pulse Ox 100 Oxygen Delivery Method Room Air Positive well nourished and well developed General Appearance ED: well developed and NAD HEENT Reports moist mucous membranes Negative for trauma Eyes PERRL and EOMs intact bilaterally Neck supple Chest Wall inspection of chest normal and palpation of chest normal Chest Narrative: Port present in the right anterior chest wall Resp normal respiratory effort and clear to auscultation bilaterally Cardio regular rate, regular rhythm and no murmurs GI normal to inspection, nondistended, normoactive bowel sounds and non-tender Extremity normal to inspection General Extremety ED: Negative for edema or tenderness General Extremity: Negative for edema Neuro oriented x3 Sensorium / Orientation: alert Motor Exam: Negative for general weakness Psych mental status grossly normal Skin no rashes or lesions noted and no wounds MDM MDM MDM Narrative Medical decision making narrative: Patient is evaluated for worsening nausea, vomiting and pain. Patient has pancreatic cancer is currently undergoing chemotherapy as well as radiation. She is not been able to keep down any of her medications for the past 2 days or drink anything. Patient peers uncomfortable but no acute distress. Vital signs are normal. She is given IV fluids, Compazine and morphine for symptom control. On reevaluation she still has some dry heaves but states she does feel better. She is then redosed with IV Reglan. Lab work largely unremarkable with no acute abnormalities. Patient is interested in a palliative consult and is agreeable to come in for further symptom control. Given her comorbidities I think this is quite reasonable. Patient is admitted to the hospital service. Lab Data Attestation: I reviewed the patient's lab results. Labs: Laboratory Results - last 24 hr 06/13/22 06/13/22 20:44 20:44 WBC 6.7 RBC 4.90 Hgb 12.9 Hct 41.1 MCV 83.9 MCH 26.3 L MCHC 31.4 L RDW Std Deviation 62.8 H RDW Coeff of Williams 20.6 H Plt Count 203 MPV 9.6 Immature Gran % (Auto) 0.400 Neut % (Auto) 67.4 Lymph % (Auto) 14.9 L [place] % (Auto) 15.4 H Eos % (Auto) 1.3 Baso % (Auto) 0.6 Absolute Neuts (auto) 4.5 Absolute Lymphs (auto) 1.00 Nucleated RBC % 0 Platelet Estimate ADEQUATE RBC Morphology N CHROM Anisocytosis 1+ Sodium 136 Potassium 3.5 Chloride 98 Carbon Dioxide 24.0 Anion Gap 14 BUN 20 H Creatinine 0.64 Estim Creat Clear Calc 46.11 Est GFR (MDRD) Af Amer 119 Est GFR (MDRD) Non-Af 98 BUN/Creatinine Ratio 31.5 H Glucose 239 H Calcium 9.0 Total Bilirubin 0.70 AST 24 ALT 40 Alkaline Phosphatase 175 H Total Protein 6.9 Albumin 3.1 L Globulin 3.8 Albumin/Globulin Ratio 0.8 L Lipase 32 L Rhythm Strip Rhythm Strip: Sinus Rhythm Rate: 79 Ectopy: None EKG Initial EKG: Attestation: I personally reviewed and interpreted this EKG as follows: Interpretation: Sinus Rhythm Comments: Normal sinus rhythm and rate of 79 Normal intervals Normal axis Normal ST segments Discharge Plan Triage Chief Complaint: Nausea/Vomiting/Diarrhea ED Provider: Sruthi Jade Dx/Rx/DC Orders Clinical Impression: Intractable vomiting with nausea, Abdominal pain, Primary pancreatic cancer with metastasis to other site Prescriptions: No Action albuterol sulfate 1 INHALER inhaler 1 puff inhalation PRN PRN (Reason: Sob &/Or Wheezing) oxycodone-acetaminophen 5-325 mg tablet 1 tab PO Q6H PRN (Reason: Pain) Label Comments: Take 1 tablet by mouth every 6 hours as needed for pain for up to 5 days. esomeprazole magnesium 40 mg capsule,delayed release(DR/EC) 40 cap PO DAILY Label Comments: Take 1 capsule by mouth daily before breakfast. 1/2 hr before meal. gabapentin 100 mg capsule 100 cap PO QHS Label Comments: Take 1 capsule by mouth once daily for 30 days. insulin lispro 100 unit/mL insulin pen 10 unit SUBCUT TIDCM insulin glargine [Lantus Solostar U-100 Insulin] 100 unit/mL (3 mL) insulin pen 16 ea SUBCUT BID aspirin 81 mg tablet,chewable 81 mg PO BREAKFAST naproxen 500 mg Tablet 500 mg PO BID PRN (Reason: Pain) levofloxacin 500 mg tablet 500 mg PO DAILY Qty: 2 0RF Primary Care Provider: Elbert Calvo Referrals: Elbert Calvo MD [Primary Care Provider] - Disposition Disposition: Acute Care Hospital [facility]
--- NOTE | 2022-06-13 21:56 | HP.PCM.HOS_ITS ---
HPI - General General Date of Admission: 06/13/22 Date of Service: 06/13/22 Chief Complaint: Intractable nausea, emesis. HPI Narrative The patient is a 71 y/o F w/ PMHx: Asthma/COPD, HLD, Diabetes mellitus type II, Hx Pancreatiits, GERD, Pancreatic cancer following w/ Dr. Rhodes with ongoing radiation and chemotherapy who presents to the [facility] ED on 06/13/22 with history of nausea, emesis with loose stools with poor intake ability with compazine and zofran usage at home without marked benefit and usage of imodium for her diarrhea with last chemotherapy ~ 1 week prior and last radiation 2 days prior on Saturday reporting fatigue, malaise and preference to discontinue all treatments for her cancer requesting palliative therapy involvement but noting she is not ready for hospice intervention. She notes epigastric and upper abdominal pain at the region of her recent exploratory laparotomy but primarily with palpation. She notes only biopsies were taken. She notes she has upcoming CT scan in ~ 1 week and was then supposed to transition to an alternate chemotherapy but notes plan to talk with Dr. Rhodes about discontinuing these interventions. Discussed palliative/hospice and she does appear amenable to palliative care and potentially hospice as well. Work-up in the ED included T97.5, heart rate 85, BP 133/103, respiratory rate 16, on her percent room air, CBC with WC 6.7, hemoglobin 12.9, platelet 203 without marked shift, CMP with BUN/creat 20/0.64, glucose 239, alk phos 175 otherwise Paddock profile not marked, lipase 32, EKG with sinus rhythm with no acute evidence of ischemia. In the ED patient ministered morphine 4 mg IV x1, normal saline 1 L and prochlorperazine IV as well as reglan 5 mg IV x 1. [facility] Medical History (Updated 06/13/22 @ 21:[address] Jaimie Wilson MD) Asthma Cervical spinal stenosis COPD (chronic obstructive pulmonary disease) Diabetes Hiatal hernia History of diverticulitis History of pancreatitis Hypertension Pancreatic cancer Paresthesia of right upper extremity Home Medications albuterol sulfate 90 mcg/actuation aerosol inhaler 1 puff inhalation PRN PRN Sob &/Or Wheezing 10/08/19 [History Last Taken 04/19/21] aspirin 81 mg chewable tablet 81 mg PO BREAKFAST heart 03/23/22 [History Last Taken 03/22/22] esomeprazole magnesium 40 mg capsule,delayed release 40 cap PO DAILY acid reflux 03/23/22 [History Last Taken 04/17/22] gabapentin 100 mg capsule 100 cap PO QHS nerve pain 03/23/22 [History Last Taken 04/16/22] insulin glargine 100 unit/mL (3 mL) subcutaneous pen (Lantus Solostar U-100 Insulin) 16 ea subcut BID blood sugar 03/23/22 [History Last Taken 03/22/22] insulin lispro 100 unit/mL subcutaneous pen 10 unit subcut TIDCM blood sugar 03/23/22 [History Last Taken 03/23/22] oxycodone-acetaminophen 5 mg-325 mg tablet 1 tab PO Q6H PRN Pain 03/23/22 [History Last Taken Unknown] naproxen 500 mg tablet 500 mg PO BID PRN Pain 04/17/22 [History Last Taken 04/16/22] Allergy/AdvReac Type Severity Reaction Status Date / Time No Known Allergies Allergy Verified 06/13/22 19:28 Family History (Updated 06/13/22 @ 22:[address] Jaimie Wilson MD) Father CVA (cerebral vascular accident) Brother CVA (cerebral vascular accident) Mother Hypertension Melanoma Surgical History (Updated 06/13/22 @ 22:[address] Jaimie Wilson MD) H/O exploratory laparotomy History of cholecystectomy History of esophagogastroduodenoscopy (EGD) History of tubal ligation Social History (Updated 06/13/22 @ 22:[address] Jaimie Wilson MD) household members: other details: Her grandson lives with her currently. Smoking Status: Never smoker alcohol intake: current details: Rare EtOH usage. substance use type: does not use ROS ROS Narrative Admission Review of Systems: CONSTITUTIONAL: No weight loss, fever, chills, + weakness or fatigue. HEENT: Eyes: No visual loss, blurred vision, double vision or yellow sclerae. Ears, Nose, Throat: No hearing loss, sneezing, congestion, runny nose or sore throat. SKIN: No rash or itching, lesions, wounds. CARDIOVASCULAR: No chest pain, chest pressure or chest discomfort, palpitations, edema, orthopnea, syncopal events. RESPIRATORY: No shortness of breath, cough or sputum, wheezing, hemoptysis. GASTROINTESTINAL: + anorexia, nausea, vomiting, diarrhea, abdominal pain, No melena, BRBPR. GENITOURINARY: No dysuria, frequency, urgency or retention. NEUROLOGICAL: No headache, dizziness, syncope, paralysis, ataxia, numbness or tingling in the extremities, focal weakness, change in bowel or bladder control, seizure. MUSCULOSKELETAL: + muscle, back pain, joint pain or stiffness. HEMATOLOGIC: + anemia, bleeding or bruising. LYMPHATICS: No enlarged nodes. No history of splenectomy. PSYCHIATRIC: No history of depression or anxiety. ENDOCRINOLOGIC: No reports of sweating, cold or heat intolerance. No polyuria or polydipsia. ALLERGIES: + history of asthma. Vital Signs Vital Signs Vital Signs: 06/13/22 19:26 Temperature 97.5 F L Temperature Source Temporal Pulse Rate 85 Respiratory Rate 16 Blood Pressure 133/103 H Blood Pressure Mean 113 Pulse Ox 100 Oxygen Delivery Method Room Air Weight Weight: 123 lb Body Mass Index (BMI) 20.5 Physical Exam Narrative Physical Examination: General: Awake, alert, oriented x 3 and cooperative, seated upright in the ED bed, fatigued appearing. Skin: Normal color, normal turgor, no icterus, no cyanosis except healing abdominal exploratory laparotomy incision and occasional staged ecchymoses. HEENT: AT/NC, EOMI, PERRLA, dry MM, no carotid bruits or JVD noted. Lungs: CTA bilaterally, moderate effort, mild decrease BL bases, no rales, ronchi or wheezing. Heart: Regular rate and rhythm; no gallop, rub audible. Abdomen: Soft, tender to palpation in the upper abdomen near the exploratory laparotomy incision which is healing well, intact, no drainage, no obvious distention, mildly hyperactive bowel sounds, no obvious HSM. Extremities: No cyanosis, clubbing, or edema. Neurological: Patient awake, alert, oriented as noted, cognitive function intact; pupils equally reactive to light and accommodation, cranial nerves II- XII grossly normal, moving all 4 extremities, no focal deficits, strength mildly to moderately global decrease secondary to acute complaints. Psychiatric: Affect appears fatigued, flat, no acute evidence of depressive or anxiety feelings. Results Lab / Micro Data Result Diagrams: 06/13/22 20:44 06/13/22 20:44 Labs: Laboratory Results - last 24 hr 06/13/22 20:44: WBC 6.7, RBC 4.90, Hgb 12.9, Hct 41.1, MCV 83.9, MCH 26.3 L, MCHC 31.4 L, RDW Std Deviation 62.8 H, RDW Coeff of Williams 20.6 H, Plt Count 203, MPV 9.6, Immature Gran % (Auto) 0.400, Neut % (Auto) 67.4, Lymph % (Auto) 14.9 L , Piute % (Auto) 15.4 H, Eos % (Auto) 1.3, Baso % (Auto) 0.6, Absolute Neuts (auto) 4.5, Absolute Lymphs (auto) 1.00, Nucleated RBC % 0, Platelet Estimate ADEQUATE, RBC Morphology N CHROM, Anisocytosis 1+ 06/13/22 20:44: Sodium 136, Potassium 3.5, Chloride 98, Carbon Dioxide 24.0, Anion Gap 14, BUN 20 H, Creatinine 0.64, Estim Creat Clear Calc 46.11, Est GFR (MDRD) Af Amer 119, Est GFR (MDRD) Non-Af 98, BUN/Creatinine Ratio 31.5 H, Glucose 239 H, Calcium 9.0, Total Bilirubin 0.70, AST 24, ALT 40, Alkaline Phosphatase 175 H, Total Protein 6.9, Albumin 3.1 L, Globulin 3.8, Albumin/Globulin Ratio 0.8 L, Lipase 32 L Rhythm Strip Rhythm Strip: Sinus Rhythm Rate: 79 Ectopy: None Assessment & Plan Assessment/Plan (1) Intractable vomiting with nausea: PLAN: Plan The patient is a 71 y/o F w/ PMHx: Asthma/COPD, HLD, Diabetes mellitus type II, Hx Pancreatiits, GERD, Pancreatic cancer following w/ Dr. Rhodes with ongoing radiation and chemotherapy who presents to the [facility] ED on 06/13/22 with history of nausea, emesis with loose stools with poor intake ability with compazine and zofran usage at home without marked benefit and usage of imodium for her diarrhea with last chemotherapy ~ 1 week prior and last radiation 2 days prior on Saturday reporting fatigue, malaise and preference to discontinue all treatments for her cancer requesting palliative therapy involvement but noting she is not ready for hospice intervention. #1. Intractable nausea and emesis, unable to have appropriate oral intake complicated by #2 with ongoing radiation and chemotherapy: We will admit to medical surgical floor, maintain on aspiration precautions with intractable emesis bouts, maintain on IV fluids, will maintain on IV PPI, allow clears and if able to tolerate eventually transition diet ADA diet. Given headaches with zofran, will have PRN prochlorperazine and attempt usage haldol given severity of ongoing symptoms with 0.5 mg x 1 now and q 6 hrs PRN following. Case management consultation requested for palliative consultation and from discussion with patient also would benefit from information about hospice as upon further discussions in the ED she was unaware of the exact components for each program and would be amenable potentially. #2. Pancreatic cancer: Following with Dr. Rhodes, undergoing radiation chemotherapy, last chemo 1 week prior and last radiation 2 days prior with intractable nausea and emesis ongoing for the last several days with inability to have any oral intake x48 hours, mag and Phos levels requested, given preference to avoid further treatments will request palliative involvement however this will likely be done at discharge to home. Will have PRN oral/IV pain regimen, she normally takes oral but she has had difficulty taking any of her chronic medications. #3. Diabetes mellitus type II: We will continue long-acting insulin and hold short acting given decreased oral intake, add back once improved, trial clears and transition to ADA diet as able, accu checks w/ ISS. #4. Chronic COPD/asthma: Not on any chronic regimen, will have PRN albuterol, HOB, IS parameters. #5. GERD: Given current status with significant difficulty with oral intake we will place on IV PPI with transition to oral PPI once improved. #6. History of pancreatitis: Patient with underlying pancreatic cancer as noted above, noted prior history, lipase normal level. #7. Hyperlipidemia: Not on statin therapy, defer. #8. DVT prophylaxis: SCDs, Lovenox. #9. CODE status: Patient DAVID is her daughter and living will is currently in place. Discussed CODE status at length including difference between FULL code, DNR-CCA and DNR-CC status. Following discussions about the differences in these status, requested DNR-CCA, no intubation status. Consultation with palliative and hospice has been requested per case management consultation which will likely be performed outpatient. Advanced Care Planning Face to Face Time: 16 minutes. Charges/Coding Visit Charges OBSV E&M: 31790 Initial observation care L3 Procedures Hospitalists Procedures: 45608 Advncd Care Plan 30 Min
[2022-06-13 22:16] LABS: Magnesium 1.9 mg/dL (1.6-2.6); Phosphorus 2.4 mg/dL (2.5-4.9)
[2022-06-13] MEDS: Metoclopramide 10 MG/2 ML Vial 5 MG IV (22:23)
[2022-06-13 22:24] VITALS: BP 163/64; PULSE 65; RESP 15; TEMP 36.5; O2SAT 97
[2022-06-13 22:55] VITALS: BP 179/75; PULSE 73; RESP 16; TEMP 36.7; O2SAT 100
[2022-06-13] MEDS: 0.9% Normal Saline 1,000 ML 125 ML IV (23:20)
[2022-06-13] MEDS: Gabapentin 100 MG Capsule PO (23:46)
[2022-06-13 23:47] LABS: Troponin-I HS 13 pg/mL (3.0-54.0)
[2022-06-13] MEDS: Haloperidol Lactate 5 MG/ML Vial IM (23:49)
[2022-06-13 23:51] LABS: Color, Urine Yellow (Yellow); Glucose, Dipstick 250 mg/dl (Normal); Leukocyte Esterase-Dipstick 100 /ul (Negative); Nitrite-Dipstick Negative (Negative); Occult Blood-Urine 10 /ul (Negative); Protein-Dipstick 30 mg/dl (Negative); Urine Bilirubin Dipstick Negative (Negative); Urine Clarity Clear (Clear); Urine Urobilinogen Normal (Normal)
[2022-06-13 23:53] VITALS: BP 151/57
[2022-06-13 23:53] LABS: Ketone-Dipstick 150 mg/dl (Negative)
[2022-06-14 00:02] LABS: Bacteria 1+ /hpf (None Seen); Mucous, Urine 1+ /hpf (<or=2+); Red Blood Cells-Urine 0-5 SEEN /hpf (0-5); Squamous Epithelial Cells - UA 0-5 SEEN /hpf (5-10); Transitional Epithelial - Ur 0-5 SEEN /hpf (0-5); White Blood Cells 25-50 SEEN /hpf (0-5)
[2022-06-14 00:16] LABS: Bedside Glucose 198 mg/dL (74-106)
[2022-06-14 01:25] LABS: Troponin-I HS 14 pg/mL (3.0-54.0)
[2022-06-14 04:32] VITALS: BP 130/56; PULSE 60; RESP 16; TEMP 36.6; O2SAT 98
[2022-06-14 04:55] LABS: Bedside Glucose 201 mg/dL (74-106)
[2022-06-14 05:31] LABS: Absolute Lymphocyte Count 0.63 X10^3/uL (0.83-4.51); Basophil# 0.03 X10^3/uL; Basophil% 0.7 % (0-1); Eosinophil# 0.09 X10^3/uL; Hematocrit 34.9 % (37-47); Lymphocyte # 0.63 X10^3/ul (0.83-4.51); Lymphocyte % 14.3 % (19-41); Mean Corp Hgb Conc 31.5 g/dL (32-36); Mean Corpuscular Hgb 26.3 pg (27.0-32.0); Mean Corpuscular Volume 83.5 fL (81-99); Mean Platelet Vol. 10.1 fl (6.2-12.0); Monocyte# 0.63 X10^3/uL; Monocyte% 14.3 % (0-10); NRBC Flagged by Analyzer 0 % (0-5); Neutrophil # 3.03 X10^3/uL (2.7-7.7); Neutrophil % 68.5 % (47-70); POSITIVE MORPHOLOGY YES; Platelet Count 166 K/mm3 (150-450); RBC Distribution Width CV 20.4 % (11.6-14.6); RBC Distribution Width SD 62.3 fl (35.1-43.9); Red Blood Count 4.18 M/mm3 (4.2-5.4); White Blood Count 4.4 K/mm3 (4.4-11.0)
[2022-06-14 05:33] LABS: Differential Indicated SCAN CRITERIA MET
[2022-06-14 05:45] LABS: Anisocytosis 2+
[2022-06-14 05:57] LABS: ALB/GLOB Ratio 0.9 RATIO (0.9-2.4); AST(SGOT) 23 U/L (15-37); Alanine Aminotransfer ALT/SGPT 31 U/L (13-56); Albumin, Serum 2.4 g/dL (3.2-5.0); Alkaline Phosphatase 131 U/L (45-117); Anion Gap 9 (5-15); BUN 16 mg/dL (7-18); BUN/Creat Ratio 29.7 RATIO (10-20); Calcium,Total 7.8 mg/dL (8.5-10.1); Chloride 104 mmol/L (98-107); Creatinine, Serum 0.54 mg/dL (0.55-1.02); EST Glomerular Filtration Rate 119 mL/min (>60); Est Glom Filt Rate - Afr Amer 144 mL/min (>60); Estimated Creatinine Clearance 46.61 ml/min; Globulin 2.8 g/dL (2.2-4.2); Glucose 230 mg/dL (74-106); Protein, Total 5.2 g/dL (6.4-8.2); Sodium Level 138 mmol/L (136-145); Troponin-I HS 18 pg/mL (3.0-54.0)
[2022-06-14 07:00] VITALS: O2SAT 96
[2022-06-14 07:45] VITALS: BP 148/80; PULSE 67; RESP 15; TEMP 36.9; O2SAT 97
[2022-06-14] MEDS: Aspirin 81 MG TAB.CHEW PO (07:50)
[2022-06-14] MEDS: 0.9% Normal Saline 1,000 ML 125 ML IV (07:50)
--- NOTE | 2022-06-14 09:05 | CASEMGMT ---
Referral made to Palliative Care at this time. [facility] Screening Tool also completed.
[2022-06-14] MEDS: Potassium Chloride 10mEq/100mL 10 MEQ/100 ML IV.SOLN. 100 MEQ IV BOLUS ×4 (09:24→12:43)
--- NOTE | 2022-06-14 09:52 | CASEMGMT ---
Social Work Radha Walker, FERNANDEZ, informed that pt needs Hospice referral. SW faxed over clinical documentation to [facility] and called to inform of incoming fax. [place] voiced understanding and confirmed would be watching for referral. [employer] provided fax number [phone] for [facility] office. PLAN: Possible Home with Hospice SUNSHINE Parra
[2022-06-14] MEDS: proCHLORPERazine 10 MG/2 ML Vial 5 MG IV (10:04)
[2022-06-14] MEDS: 0.9% Saline Lock 10 ML Syringe IV ×2 (10:05→16:38)
--- NOTE | 2022-06-14 10:54 | CASEMGMT ---
Social Work SW in to meet with Pt. Pt resting in bed, presented tired and stated I'll listen just need to close my eyes. SW reassured pt this was fine. Notified pt a referral to hospice was sent. Pt grateful. Discussed support at home and pt voiced has great family and friend support. Pt sleepy, struggled to continue conversation. SW encouraged pt to get rest and ask for SW if she had any further needs. SUNSHINE Parra
--- NOTE | 2022-06-14 10:59 | CASEMGMT ---
Social Work SW in to validate AD with pt. Notified pt that HCPOA is on file and pt named agent, Meli Keller, daughter. Pt denied having LW. Stated possibly open to completing one but not feeling up to it today. SW will make note pt possibly wants to complete LW for tomorrow if still admitted. Mary Kate Serrato, SUNSHINE
--- NOTE | 2022-06-14 11:11 | CASEMGMT ---
Social Work SW called [facility] to confirm referral fax was received. Rep stated referral is not seen in computer and gave new fax number [phone]. SW faxed referral to new number. SUNSHINE Parra
--- NOTE | 2022-06-14 11:13 | DCINST_ITS ---
Discharge Instructions Diet Discharge Diet: Light diet - advance as tolerated Activity Discharge Activity: Return to Normal Activity Dressing / Incision Call your doctor if you observe: - (Intractable nausea, vomiting) Follow Up Care Test Results: Test results from this visit will be discussed in further detail at your follow- up appointment, if applicable. Discharge Plan Admission Admit Date/Time: 06/13/22 21:48 Primary Reason for Your Visit: Intractable nausea, vomiting Attending Provider: Alisha Vaz Primary Care Provider: Elbert Calvo Consulting Providers: Jaimie Wilson Instructions Additional Instructions / Restrictions: Recommend repeat BMP in 3 days. Continue home as needed Compazine-not listed on home med list. Discharge Orders/Prescriptions Prescriptions: Continued albuterol sulfate 1 INHALER inhaler 1 puff inhalation PRN PRN (Reason: Sob &/Or Wheezing) oxycodone-acetaminophen 5-325 mg tablet 1 tab PO Q6H PRN (Reason: Pain) Label Comments: Take 1 tablet by mouth every 6 hours as needed for pain for up to 5 days. esomeprazole magnesium 40 mg capsule,delayed release(DR/EC) 40 cap PO DAILY Label Comments: Take 1 capsule by mouth daily before breakfast. 1/2 hr before meal. gabapentin 100 mg capsule 100 cap PO QHS Label Comments: Take 1 capsule by mouth once daily for 30 days. insulin lispro 100 unit/mL insulin pen 10 unit SUBCUT TIDCM insulin glargine [Lantus Solostar U-100 Insulin] 100 unit/mL (3 mL) insulin pen 16 ea SUBCUT BID aspirin 81 mg tablet,chewable 81 mg PO BREAKFAST naproxen 500 mg Tablet 500 mg PO BID PRN (Reason: Pain) Referrals / Follow Up: Pedro Rhodes DO [Med Staff - Active Staff] - See Referral Note (As scheduled) Elbert Calvo MD [Primary Care Provider] - In 1 Week Disposition Disposition (needs filled in before D/C Order can be placed): Home, Self Care
--- NOTE | 2022-06-14 11:26 | PCM.DC.SUM ---
Documented by User: Radha Walker BULLDOZER MECHANIC, BULLDOZER MECHANIC-C 06/14/22 11:34 Providers Date of Admission: 06/13/22 Date of Discharge: 06/14/22 Primary Care Physician: Dr. Elbert Calvo MD Reason For Visit: INTRACTABLE N/V Diagnosis Discharge Diagnosis (1) Intractable vomiting with nausea: Status: Acute Code(s): R11.2 - Nausea with vomiting, unspecified Medications at Discharge Home Medications albuterol sulfate 90 mcg/actuation aerosol inhaler 1 puff inhalation PRN PRN Sob &/Or Wheezing 10/08/19 aspirin 81 mg chewable tablet 81 mg PO BREAKFAST heart 03/23/22 esomeprazole magnesium 40 mg capsule,delayed release 40 cap PO DAILY acid reflux 03/23/22 gabapentin 100 mg capsule 100 cap PO QHS nerve pain 03/23/22 insulin glargine 100 unit/mL (3 mL) subcutaneous pen (Lantus Solostar U-100 Insulin) 16 ea subcut BID blood sugar 03/23/22 insulin lispro 100 unit/mL subcutaneous pen 10 unit subcut TIDCM blood sugar 03/23/22 oxycodone-acetaminophen 5 mg-325 mg tablet 1 tab PO Q6H PRN Pain 03/23/22 naproxen 500 mg tablet 500 mg PO BID PRN Pain 04/17/22 Hospital Course Operations None Procedures None Summary of Care Provided Hospital Course: Patient is a 71-year-old female admitted 06/13/2022 due to intractable nausea, vomiting. 1. Intractable nausea, vomiting secondary to chemotherapy regimen with underlying pancreatic cancer-IV fluids and as needed antiemetics during admission. Symptomatically significantly improved. Patient discussing hospice transition. Hospice consult during admission however patient would like to think about her options further. Recommend follow-up with oncology for further discussion as well. Continue as needed Compazine which patient states is typically effective for her at home. 2. Type 2 diabetes mellitus-continue home insulin regimen. 3. Chronic COPD/asthma-as needed inhaler. 4. GERD-continue PPI. 5. Moderate protein calorie malnutrition-as evidenced by suboptimal oral intake and recent weight loss. Continue dietary supplementation per nutrition recommendations. 6. Hypokalemia-replaced intravenously. Recommend repeat BMP in 3 days. Patient seen and examined prior to discharge. Physical assessment as noted below. Patient is stable for discharge with follow up recommendations as noted above. This patient was seen by SALLY Romeo under the supervision of Dr. Vaz. Physical Exam Const alert, oriented x3 and no apparent distress Orientation / Consciousness: awake, oriented to person, oriented to place and oriented to time HEENT normocephalic and moist oral mucous membranes Eyes PERRL, EOMs intact bilaterally and conjunctivae normal Neck no lymphadenopathy Resp normal respiratory effort and clear to auscultation bilaterally Cardio regular rate, regular rhythm and no murmurs Peripheral Pulses: pulses 2+ throughout GI normal to inspection, nondistended, normoactive bowel sounds, non-tender and non-distended Extremity normal to inspection Skin no rashes or lesions noted Lesions: no lesions Rashes: no rashes Trauma: no lacerations or abrasions Neuro CN's II-XII intact bilaterally, no focal motor deficits, no sensory deficits noted and deep tendon reflexes 2+ bilaterally Psych mental status grossly normal and affect normal Weight / BMI Weight Weight: 124 lb 5.451 oz Body Mass Index (BMI) 20.0 ABG / Lab / Microbiology Data Result Diagrams: 06/14/22 05:25 06/14/22 05:25 Laboratory: Laboratory Results - last 24 hr 06/13/22 20:44: WBC 6.7, RBC 4.90, Hgb 12.9, Hct 41.1, MCV 83.9, MCH 26.3 L, MCHC 31.4 L, RDW Std Deviation 62.8 H, RDW Coeff of Williams 20.6 H, Plt Count 203, MPV 9.6, Immature Gran % (Auto) 0.400, Neut % (Auto) 67.4, Lymph % (Auto) 14.9 L, [place] % (Auto) 15.4 H, Eos % (Auto) 1.3, Baso % (Auto) 0.6, Absolute Neuts (auto) 4.5, Absolute Lymphs (auto) 1.00, Nucleated RBC % 0, Platelet Estimate ADEQUATE, RBC Morphology N CHROM, Anisocytosis 1+ 06/13/22 20:44: Sodium 136, Potassium 3.5, Chloride 98, Carbon Dioxide 24.0, Anion Gap 14, BUN 20 H, Creatinine 0.64, Estim Creat Clear Calc 46.11, Est GFR (MDRD) Af Amer 119, Est GFR (MDRD) Non-Af 98, BUN/Creatinine Ratio 31.5 H, Glucose 239 H, Calcium 9.0, Total Bilirubin 0.70, AST 24, ALT 40, Alkaline Phosphatase 175 H, Total Protein 6.9, Albumin 3.1 L, Globulin 3.8, Albumin/Globulin Ratio 0.8 L, Lipase 32 L 06/13/22 20:44: Phosphorus 2.4 L, Magnesium 1.9 06/13/22 23:15: Troponin I High Sens 13 06/13/22 23:25: POC Glucose 198 H 06/13/22 23:45: Urine Color Yellow, Urine Clarity Clear, Urine pH 5.0, Ur Specific [place] 1.030, Urine Protein 30 H, Urine Glucose (UA) 250 H, Urine Ketones 150 A*, Urine Occult Blood 10 H, Urine Nitrite Negative, Urine Bilirubin Negative, Urine Urobilinogen Normal, Ur Leukocyte Esterase 100 H, Urine RBC 0-5 SEEN, Urine WBC 25-50 SEEN, Ur Squamous Epith Cells 0-5 SEEN, Ur Transition Epith Cell 0-5 SEEN, Urine Bacteria 1+, Urine Mucus 1+ 06/14/22 01:00: Troponin I High Sens 14 06/14/22 04:31: POC Glucose 201 H 06/14/22 05:25: WBC 4.4, RBC 4.18 L, Hgb 11.0 L, Hct 34.9 L, MCV 83.5, MCH 26.3 L, MCHC 31.5 L, RDW Std Deviation 62.3 H, RDW Coeff of [place] 20.4 H, Plt Count 166, MPV 10.1, Immature Gran % (Auto) 0.200, Neut % (Auto) 68.5, Lymph % (Auto) 14.3 L, [place] % (Auto) 14.3 H, Eos % (Auto) 2.0, Baso % (Auto) 0.7, Absolute Neuts (auto) 3.0, Absolute Lymphs (auto) 0.63 L, Nucleated RBC % 0, Anisocytosis 2+ 06/14/22 05:25: Sodium 138, Potassium 3.0 L, Chloride 104, Carbon Dioxide 25.0, Anion Gap 9, BUN 16, Creatinine 0.54 L, Estim Creat Clear Calc 46.61, Est GFR (MDRD) Af Amer 144, Est GFR (MDRD) Non-Af 119, BUN/Creatinine Ratio 29.7 H, Glucose 230 H, Calcium 7.8 L, Total Bilirubin 0.40, AST 23, ALT 31, Alkaline Phosphatase 131 H, Troponin I High Sens 18, Total Protein 5.2 L, Albumin 2.4 L, Globulin 2.8, Albumin/Globulin Ratio 0.9 D/C Instructions Discharge Diet: Light diet - advance as tolerated Call your doctor if you observe: - (Intractable nausea, vomiting) Meaningful Use Info Meaningful Use Diagnoses (Choose all that apply): None applicable Discharge Plan Admission Admit Date/Time: 06/13/22 21:48 Primary Reason for Your Visit: Intractable nausea, vomiting Attending Provider: Alisha Vaz Primary Care Provider: Elbert Calvo Consulting Providers: Jaimie Wilson Instructions Additional Instructions / Restrictions: Recommend repeat BMP in 3 days. Continue home as needed Compazine-not listed on home med list. Discharge Orders/Prescriptions Prescriptions: Continued albuterol sulfate 1 INHALER inhaler 1 puff inhalation PRN PRN (Reason: Sob &/Or Wheezing) oxycodone-acetaminophen 5-325 mg tablet 1 tab PO Q6H PRN (Reason: Pain) Label Comments: Take 1 tablet by mouth every 6 hours as needed for pain for up to 5 days. esomeprazole magnesium 40 mg capsule,delayed release(DR/EC) 40 cap PO DAILY Label Comments: Take 1 capsule by mouth daily before breakfast. 1/2 hr before meal. gabapentin 100 mg capsule 100 cap PO QHS Label Comments: Take 1 capsule by mouth once daily for 30 days. insulin lispro 100 unit/mL insulin pen 10 unit SUBCUT TIDCM insulin glargine [Lantus Solostar U-100 Insulin] 100 unit/mL (3 mL) insulin pen 16 ea SUBCUT BID aspirin 81 mg tablet,chewable 81 mg PO BREAKFAST naproxen 500 mg Tablet 500 mg PO BID PRN (Reason: Pain) Referrals / Follow Up: Pedro Rhodes DO [Med Staff - Active Staff] - See Referral Note (As scheduled) Elbert Calvo MD [Primary Care Provider] - In 1 Week Disposition Disposition (needs filled in before D/C Order can be placed): Home, Self Care Documented by User: Dr. Alisha Vaz DO 06/14/22 13:25 Providers Date of Admission: 06/13/22 Reason For Visit: INTRACTABLE N/V Diagnosis Discharge Diagnosis (1) Intractable vomiting with nausea: Status: Acute Code(s): R11.2 - Nausea with vomiting, unspecified Medications at Discharge Home Medications albuterol sulfate 90 mcg/actuation aerosol inhaler 1 puff inhalation PRN PRN Sob &/Or Wheezing 10/08/19 aspirin 81 mg chewable tablet 81 mg PO BREAKFAST heart 03/23/22 esomeprazole magnesium 40 mg capsule,delayed release 40 cap PO DAILY acid reflux 03/23/22 gabapentin 100 mg capsule 100 cap PO QHS nerve pain 03/23/22 insulin glargine 100 unit/mL (3 mL) subcutaneous pen (Lantus Solostar U-100 Insulin) 16 ea subcut BID blood sugar 03/23/22 insulin lispro 100 unit/mL subcutaneous pen 10 unit subcut TIDCM blood sugar 03/23/22 oxycodone-acetaminophen 5 mg-325 mg tablet 1 tab PO Q6H PRN Pain 03/23/22 naproxen 500 mg tablet 500 mg PO BID PRN Pain 04/17/22 Hospital Course Operations None Procedures None Summary of Care Provided Minutes Spent on Discharge: 25 Hospital Course: Ms. Garcia is a 71-year-old white female with a past medical history of pancreatic cancer who follows with Dr. Rhodes. She has been undergoing radiation and chemotherapy and presented to the emergency department [facility] on 06/13/2022 with nausea, vomiting, and loose stools with poor intake. The patient reported that she feels she got behind the 8 ball a bit so to speak as she had been using Compazine when she notes that she is having some nausea but forgot it at home while she was out and had neglected to use her Imodium when she had some diarrhea. She started her Imodium prior to presentation and her diarrhea improved dramatically but did take her Compazine and had no significant improvement. She states typically it is quite effective for her and the Zofran is effective however it gives her headaches. Her last chemotherapy was approximately 1 week with her last radiation being 2 days prior to presenting. She indicated significant fatigue and ongoing chronic nausea vomiting and diarrhea and requested palliative care and possible hospice evaluation on admission. She has an upcoming CT scan in 1 week and then is supposed to transition to an alternate chemotherapy but plans to talk to Dr. Rhodes about suspending all treatment and enrolling in hospice. Work-up in the ED included T97.5, heart rate 85, BP 133/103, respiratory rate 16, on her percent room air, CBC with WC 6.7, hemoglobin 12.9, platelet 203 without marked shift, CMP with BUN/creat 20/0.64, glucose 239, alk phos 175 otherwise [place] profile not marked, lipase 32, EKG with sinus rhythm with no acute evidence of ischemia.? In the ED patient administered morphine 4 mg IV x1, normal saline 1 L and prochlorperazine IV as well as reglan 5 mg IV x 1. She was admitted to the medical floor where she was maintained on IV fluids and her nausea and vomiting improved dramatically to the point where she was able to eat a cheeseburger for lunch. She did have some mild nausea after eating a cheeseburger. We did recommend that she start channel marketing manager than that however this is what she wanted to eat. She indicated she felt well enough to go home and hospice will consult her as an outpatient. We strongly recommended outpatient follow-up with Dr. Rhodes to address any issues and ongoing therapeutic options versus hospice enrollment. She was discharged home in stable condition on 06/14/2022. Patient indicated she had plenty of Compazine and Zofran and needed no refills at the time of discharge. We did recommend follow-up BMP to recheck her potassium as she was slightly low during admission. She was replaced with IV electrolytes including potassium and phosphorus. Discharge diagnoses: Intractable nausea and vomiting-resolved--> secondary to chemotherapy Metastatic pancreatic cancer DM-2 COPD Asthma GERD Moderate malnutrition Hypokalemia-replace Hypophosphatemia-replaced Physical Exam Const alert, oriented x3, no apparent distress and average body habitus Constitutional Narrative: Older white female sitting up in bed, friend at bedside, patient appears comfortable nontoxic at this time General Appearance: cooperative, comfortable, well kempt and well developed Orientation / Consciousness: awake, oriented to person, oriented to place and oriented to time Exam Limitations: no limitations HEENT normocephalic, head/scalp atraumatic and moist oral mucous membranes Resp normal respiratory effort, no retractions, no use of accessory muscles and clear to auscultation bilaterally Auscultation: Negative for crackles, rales, rhonchi or wheezes Cardio regular rate, regular rhythm, S1 normal heart sound, S2 normal heart sound, no murmurs, no rub, no gallops and no clicks GI normal to inspection, nondistended, normoactive bowel sounds, soft to palpation and non-tender Extremity no clubbing, cyanosis or edema Extremity Narrative: 2+ pedal pulses Neuro oriented x3, moves all extremities and no focal motor deficits Speech: speech normal Psych affect normal Psych Narrative: Very pleasant and appropriately interactive ABG / Lab / Microbiology Data Result Diagrams: 06/14/22 05:25 06/14/22 05:25 Discharge Plan Admission Admit Date/Time: 06/13/22 21:48 Primary Reason for Your Visit: Intractable nausea, vomiting Attending Provider: Alisha Vaz Primary Care Provider: Elbert Calvo Consulting Providers: Jaimie Wilson Instructions Additional Instructions / Restrictions: Recommend repeat BMP in 3 days. Continue home as needed Compazine-not listed on home med list. Discharge Orders/Prescriptions Prescriptions: Continued albuterol sulfate 1 INHALER inhaler 1 puff inhalation PRN PRN (Reason: Sob &/Or Wheezing) oxycodone-acetaminophen 5-325 mg tablet 1 tab PO Q6H PRN (Reason: Pain) Label Comments: Take 1 tablet by mouth every 6 hours as needed for pain for up to 5 days. esomeprazole magnesium 40 mg capsule,delayed release(DR/EC) 40 cap PO DAILY Label Comments: Take 1 capsule by mouth daily before breakfast. 1/2 hr before meal. gabapentin 100 mg capsule 100 cap PO QHS Label Comments: Take 1 capsule by mouth once daily for 30 days. insulin lispro 100 unit/mL insulin pen 10 unit SUBCUT TIDCM insulin glargine [Lantus Solostar U-100 Insulin] 100 unit/mL (3 mL) insulin pen 16 ea SUBCUT BID aspirin 81 mg tablet,chewable 81 mg PO BREAKFAST naproxen 500 mg Tablet 500 mg PO BID PRN (Reason: Pain) Referrals / Follow Up: Pedro Rhodes DO [Med Staff - Active Staff] - See Referral Note (As scheduled) Calvo,Elbert, MD [Primary Care Provider] - In 1 Week Disposition Disposition (needs filled in before D/C Order can be placed): Home, Self Care Charges/Coding Visit Charges OBSV E&M: 56704 Observation care discharge
[2022-06-14] MEDS: Insulin Glargine-YFGN 100 UNIT/ML Pen 16 UNIT SC (11:35)
[2022-06-14] MEDS: Insulin Lispro 100 UNIT/ML INSULN.PEN SC (11:42)
[2022-06-14 11:55] LABS: Bedside Glucose 321 mg/dL (74-106)
--- NOTE | 2022-06-14 14:31 | CASEMGMT ---
Social Work LUCILA received pc from Lizbet at [facility]. Lizbet reviewed pt referral and informed that she spoke to pt family and the plan is to reach out to pt and schedule a meeting after pt discharges. SW in to inform pt of hospice call. Pt sleeping at this time. LUCILA notified pt Radha Perry, of plan. SUNSHINE Parra
[2022-06-14 16:34] VITALS: BP 150/56; PULSE 68; RESP 16; TEMP 37.1; O2SAT 100
== END 2022-06-14 17:00 | disposition home or self-care (01) ==
LOC: ED 21:53 → MS3 22:18
PROVIDERS: Admitting Provider Family Medicine; Emergency Provider Emergency Medicine; PCP Internal Medicine; Visit Provider Internal Medicine
DX: R11.2 Nausea with vomiting, unspecified (principal); C25.9 Malignant neoplasm of pancreas, unspecified; E44.0 Moderate protein-calorie malnutrition; J44.9 Chronic obstructive pulmonary disease, unspecified; Z79.4 Long term (current) use of insulin; E11.9 Type 2 diabetes mellitus without complications; I10 Essential (primary) hypertension; E78.5 Hyperlipidemia, unspecified; K21.9 Gastro-esophageal reflux disease without esophagitis; E87.6 Hypokalemia; T45.1X5A Adverse effect of antineoplastic and immunosuppressive drugs, initial encounter; R19.7 Diarrhea, unspecified; E83.39 Other disorders of phosphorus metabolism; Z68.20 Body mass index [BMI] 20.0-20.9, adult; Z79.82 Long term (current) use of aspirin; Z79.899 Other long term (current) drug therapy
CPT/HCPCS: 36415; 36591; 80053; 81001; 82962; 83690; 83735; 84100; 84484; 85025; 93005; 96361; 96365; 96366; 96367; 96372; 96375; 96376; 97802; 99218; 99284; J7030; A4216; G0378